=== PATIENT | female | born 1975 | race Caucasian/White ===

== ENCOUNTER 2016-08-29 13:29 | Inpatient (IN) | payer MEDICARE, MEDICAID ==
--- NOTE | 2016-08-29 14:13 | ED ---
Psych HPI - General Chief Complaint: Psychiatric Symptoms Stated Complaint: Mental Health Time Seen by Provider: 08/29/16 13:51 Source: patient Mode of arrival: ambulatory - History of Present Illness Initial Comments: This 41-year-old white female presents complaining of having some depression which started yesterday. She also is having some suicidal ideations yesterday and was planning on cutting her wrist. She states that she does not have a plan today. She also has been hearing voices and they are saying that they are going to get her. She also has been having some visual hallucinations of seeing blood. She does have a long-standing history of schizophrenia and bipolar disorder with previous similar incidents. She states that she has been taking all of her psychiatric medications regularly. She has been smoking marijuana but has a medical marijuana card. She also drinks approximately 1/2 pint every other day on average. She did drink some last night. She denies any other drug use. She denies any other complaints or modifying factors. She denies any medical complaints currently. - Related Data Home Medications Medication Instructions Recorded Confirmed ARIPiprazole [Abilify] 30 mg PO DAILY 08/29/16 08/29/16 FLUoxetine HCL [PROzac] 20 mg PO BID 08/29/16 08/29/16 HYDROcodone/APAP 7.5-325MG [[place] 1 tab PO Q8H PRN 08/29/16 08/29/16 7.5-325] Naproxen [Naprosyn] 500 mg PO BID PRN 08/29/16 08/29/16 Oxybutynin Chloride [Ditropan] 5 mg PO BID 08/29/16 08/29/16 QUEtiapine [SEROquel] 50 mg PO HS 08/29/16 08/29/16 Ranitidine HCl [Zantac] 150 mg PO BID PRN 08/29/16 08/29/16 Simvastatin [Zocor] 40 mg PO HS 08/29/16 08/29/16 tiZANidine [Zanaflex] 2 - 4 mg PO TID PRN 08/29/16 08/29/16 Allergies Allergy/AdvReac Type Severity Reaction Status Date / Time No Known Allergies Allergy Unverified 08/29/16 17:29 Review of Systems ROS Statement: Those systems with pertinent positive or pertinent negative responses have been documented in the HPI. ROS Other: All systems not noted in ROS Statement are negative. Past Medical History Past Medical History: No Reported History History of Any Multi-Drug Resistant Organisms: None Reported Past Surgical History: No Surgical Hx Reported Past Psychological History: Bipolar, Schizophrenia Smoking Status: Current every day smoker Past Alcohol Use History: Daily Past Drug Use History: Marijuana General Exam - General Exam Comments Initial Comments: GENERAL: The patient is well nourished and well hydrated. VITAL SIGNS: Heart rate, blood pressure, respiratory rate reviewed as recorded in nurse's notes. EYES: Pupils are round and reactive. Extraocular movements are intact. No conjunctival / lid redness or swelling. ENT: No external evidence of injury, swelling, or ecchymosis. Airway is patent. Throat is clear. NECK: Nontender. No swelling or evidence of injury. No subcutaneous emphysema. Trachea is midline. No thyroid mass. HEART: Regular rate and rhythm. Good peripheral pulses. LUNGS/CHEST: Breath sounds clear and equal bilaterally. No rales, rhonchi, or wheezes. No ecchymosis, subcutaneous emphysema, or tenderness. ABDOMEN: Abdomen soft without tenderness. No palpable masses or organomegaly. No peritoneal signs. No abdominal wall swelling or ecchymosis. EXTREMITIES: No extremity tenderness. Normal muscle tone and function. No thoracolumbar tenderness. NEUROLOGIC: Sensation is grossly intact. Cranial nerve exam reveals face is symmetrical, tongue is midline, speech is clear. SKIN: No abrasions or ecchymosis is noted. No induration or masses noted. PSYCHIATRIC: Alert and oriented. Appropriate behavior and judgment. Course Vital Signs 08/29/16 08/29/16 13:48 16:22 Temperature 97.1 F L 97.3 F L Pulse Rate 74 86 Respiratory 18 20 Rate Blood Pressure 102/62 107/65 O2 Sat by Pulse 95 96 Oximetry Medical Decision Making - Medical Decision Making The patient was seen and examined. Her breath alcohol test was negative. The psychiatric team has been consulted. Further care has been deferred to the department of psychiatry for definitive disposition. - Lab Data Lab Results 08/29/16 08/29/16 08/29/16 Range/Units 13:57 13:57 13:57 Urine Color Yellow Urine Appearance Cloudy H (Clear) Urine pH 6.0 (5.0-8.0) Ur Specific [place] 1.019 (1.001-1.035) Urine Protein Trace H (Negative) Urine Glucose (UA) Negative (Negative) Urine Ketones Negative (Negative) Urine Blood Moderate H (Negative) Urine Nitrite Negative (Negative) Urine Bilirubin Negative (Negative) Urine Urobilinogen <2.0 (<2.0) mg/dL Ur Leukocyte Esterase Trace H (Negative) Urine RBC >182 H (0-5) /hpf Urine WBC 6 H (0-5) /hpf Ur Squamous Epith Cells 3 (0-4) /hpf Urine Bacteria Rare H (None) /hpf Urine Mucus Rare H (None) /hpf Urine HCG, Qual Not Detected (Not Detectd) Urine Opiates Screen Detected H (NotDetected) Ur Oxycodone Screen Not Detected (NotDetected) Urine Methadone Screen Not Detected (NotDetected) Ur Propoxyphene Screen Not Detected (NotDetected) Ur Barbiturates Screen Not Detected (NotDetected) U Tricyclic Antidepress Detected H (NotDetected) Ur Phencyclidine Scrn Not Detected (NotDetected) Ur Amphetamines Screen Not Detected (NotDetected) U Methamphetamines Scrn Not Detected (NotDetected) U Benzodiazepines Scrn Not Detected (NotDetected) Urine Cocaine Screen Not Detected (NotDetected) U Marijuana (THC) Screen Detected H (NotDetected) Disposition Clinical Impression: Depression, Alcohol abuse, Marijuana abuse Disposition: ADMITTED IP TO THIS HOSP Condition: Fair Time of Disposition: 17:20 Decision Date: 08/29/16 Decision Time: 17:20
[2016-08-29] MEDS ORDERED: ACETAMINOPHEN TAB 325 MG TAB PO PRN (16:13)
[2016-08-29] MEDS ORDERED: MAG HYDROX/AL HYDROX/SIMETH 30 ML CUP PO PRN (16:13)
[2016-08-29] MEDS ORDERED: MAGNESIUM HYDROXIDE 2,400 MG/10 ML CUP PO PRN (16:13)
[2016-08-29] MEDS ORDERED: ZIPRASIDONE 20 MG VIAL IM PRN (16:15)
[2016-08-29] MEDS ORDERED: LORazepam 2 MG/ML SYRINGE IM PRN (16:16)
[2016-08-29 16:35] LABS: Appearance,Urine Cloudy (Clear); Bacteria,Urine Rare /hpf; Bilirubin,Urine Negative (Negative); Glucose,Urine (UA) Negative (Negative); Ketones,Urine Negative (Negative); Leukocyte Esterase,Urine Trace (Negative); Mucus,Urine Rare /hpf; Nitrite,Urine Negative (Negative); Particle Count 4929; Protein,Urine Trace (Negative); RBC,Urine >182 /hpf (0-5); Specific Gravity,Urine 1.019 (1.001-1.035); Squamous Epithelial Cell,Urine 3 /hpf (0-4); UA Billing (MACRO vs. MICRO) MICRO; Urobilinogen,Urine <2.0 mg/dL (<2.0); WBC,Urine 6 /hpf (0-5)
[2016-08-29] MEDS: HYDROcodone/APAP 5-325MG 1 EACH TAB PO PRN (17:01)
[2016-08-29] MEDS: NICOTINE 14MG/24HR PATCH TRANSDERM SCH (17:18)
[2016-08-29 17:25] VITALS: BMI 35.6
[2016-08-29] MEDS: ATORVASTATIN 20 MG TAB PO SCH (20:17)
[2016-08-29] MEDS: OXYBUTYNIN CHLORIDE 5 MG TAB PO SCH (20:17)
[2016-08-29] MEDS: QUEtiapine 50 MG TAB PO SCH (20:17)
[2016-08-29] MEDS: FLUoxetine HCL 20 MG CAP PO SCH (20:17)
[2016-08-29] MEDS: LORazepam 1 MG TAB PO PRN (21:51)
[2016-08-30] MEDS: OXYBUTYNIN CHLORIDE 5 MG TAB PO SCH ×2 (08:24→21:34)
[2016-08-30] MEDS: NICOTINE 14MG/24HR PATCH TRANSDERM SCH (08:24)
[2016-08-30] MEDS: ARIPiprazole 15 MG TAB PO SCH (08:25)
[2016-08-30] MEDS: FLUoxetine HCL 20 MG CAP PO SCH ×2 (08:25→21:34)
[2016-08-30] MEDS: HYDROcodone/APAP 5-325MG 1 EACH TAB PO PRN ×2 (08:28→21:35)
[2016-08-30] MEDS ORDERED: NICOTINE 14MG/24HR PATCH TRANSDERM SCH (09:00)
[2016-08-30 09:32] LABS: Basophils # (A) 0.1 k/uL (0-0.2); Basophils % (A) 1 %; CH 31.8; CHCM 32.7; Eosinophils # (A) 0.2 k/uL (0-0.7); Eosinophils % (A) 3 %; HCT 48.4 % (34.0-46.0); HDW 2.63; HGB 15.6 gm/dL (11.4-16.0); Luc # (Auto) 0.18; Luc % (Auto) 2; Lymphocytes # (A) 2.1 k/uL (1.0-4.8); Lymphocytes % (A) 25 %; MCH 31.5 pg (25.0-35.0); MCHC 32.2 g/dL (31.0-37.0); MCV 97.9 fL (80.0-100.0); Mean Platelet Volume 7.8; Monocytes # (A) 0.4 k/uL (0-1.0); Monocytes % (A) 5 %; Neutrophils # (A) 5.5 k/uL (1.3-7.7); Neutrophils % (A) 65 %; RBC 4.95 m/uL (3.80-5.40); RDW 13.8 % (11.5-15.5); WBC 8.5 k/uL (3.8-10.6); WBC (Perox) 8.46
[2016-08-30 09:51] LABS: ALT 30 U/L (9-52); AST 26 U/L (14-36); Alkaline Phosphatase 70 U/L (38-126); Anion Gap 11 mmol/L; Blood Urea Nitrogen 18 mg/dL (7-17); Calcium 9.9 mg/dL (8.4-10.2); Carbon Dioxide 25 mmol/L (22-30); Chloride 107 mmol/L (98-107); Glucose 105 mg/dL (74-99); Non-African American GFR(MDRD) >60 (>60 ml/min/1.73 sqM); Sodium 143 mmol/L (137-145); Total Bilirubin 0.8 mg/dL (0.2-1.3); Total Protein 7.5 g/dL (6.3-8.2)
[2016-08-30 10:35] LABS: Potassium 4.5 mmol/L (3.5-5.1)
[2016-08-30] MEDS: NAPROXEN 250 MG TAB PO PRN ×2 (14:24→22:46)
[2016-08-30] MEDS: tiZANidine 4 MG TAB PO PRN (14:24)
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
[2016-08-30] MEDS: QUEtiapine 50 MG TAB PO SCH (21:34)
[2016-08-30] MEDS: ATORVASTATIN 20 MG TAB PO SCH (21:34)
[2016-08-31] MEDS: ARIPiprazole 15 MG TAB PO SCH (08:49)
[2016-08-31] MEDS: NICOTINE 14MG/24HR PATCH TRANSDERM SCH (08:49)
[2016-08-31] MEDS: OXYBUTYNIN CHLORIDE 5 MG TAB PO SCH ×2 (08:50→21:11)
[2016-08-31] MEDS: FLUoxetine HCL 20 MG CAP PO SCH ×2 (08:50→21:11)
[2016-08-31] MEDS: HYDROcodone/APAP 5-325MG 1 EACH TAB PO PRN ×2 (08:51→18:54)
[2016-08-31] MEDS: NAPROXEN 250 MG TAB PO PRN (10:59)
--- NOTE | 2016-08-31 15:15 | P.CONS ---
History of Present Illness - Reason for Consult Consult date: 08/30/16 Medical management - History of Present Illness This is a 41-year-old female. Her primary care physician is Dr. Bullock and she follows with a psychiatrist as well. She has a past medical history of overactive bladder, COPD, hyperlipidemia, osteoarthritis, chronic back pain. patient states that she has seen blood everywhere. She denies any nightmares. She states she is hearing voices that tell her to run away. She states that seemed blood issue stopped yesterday. Patient came into [facility] emergency center. Urine drug screen was positive for opiates, tricyclic antidepressants and marijuana. TSH is 3.290. Patient has been admitted to the mental health unit. Review of Systems All systems: negative Constitutional: Denies chills, Denies fever Eyes: denies blurred vision, denies pain Ears, nose, mouth and throat: Denies headache, Denies sore throat Cardiovascular: Denies chest pain, Denies shortness of breath Respiratory: Denies cough Gastrointestinal: Denies abdominal pain, Denies diarrhea, Denies nausea, Denies vomiting Genitourinary: Denies dysuria, Denies hematuria Musculoskeletal: Denies myalgias Integumentary: Denies pruritus, Denies rash Neurological: Denies numbness, Denies weakness Psychiatric: Reports confusion, Reports hallucinations, Reports paranoia, Denies anxiety, Denies depression Endocrine: Denies fatigue, Denies weight change Past Medical History Past Medical History: No Reported History, GERD/Reflux, Hyperlipidemia Additional Past Medical History / Comment(s): overactive bladder, chronic back pain History of Any Multi-Drug Resistant Organisms: None Reported Past Surgical History: No Surgical Hx Reported Past Anesthesia/Blood Transfusion Reactions: No Reported Reaction Past Psychological History: Bipolar, Schizophrenia Smoking Status: Current every day smoker Past Alcohol Use History: Daily Additional Past Alcohol Use History / Comment(s): patient is a smoker of one pack per day since she was 10 years of age. She does have a medical marijuana card. She denies any street drug use. She states she drinks a pint of alcohol every 2-3 days since she was 10 years old. She lives at home with her boyfriend. She does not have CPAP or nebulizer at home. Past Drug Use History: Marijuana - Past Family History Father Additional Family Medical History / Comment(s): Father in his 50s from mesothelioma. Mother Additional Family Medical History / Comment(s): Mother is alive at age 64 with history of colon cancer and diabetes. Brother(s) Additional Family Medical History / Comment(s): Patient has 4 brothers and one has scoliosis. She does not have contact with the others. Sister(s) Additional Family Medical History / Comment(s): She has one sister with mental health issues. Daughter(s) Additional Family Medical History / Comment(s): Patient has 2 daughters and one has uterine cancer. She does not have any sons. Medications and Allergies Home Medications Medication Instructions Recorded Confirmed Type ARIPiprazole [Abilify] 30 mg PO DAILY 08/29/16 08/29/16 History FLUoxetine HCL [PROzac] 20 mg PO BID 08/29/16 08/29/16 History HYDROcodone/APAP 7.5-325MG [[place] 1 tab PO Q8H PRN 08/29/16 08/29/16 History 7.5-325] Naproxen [Naprosyn] 500 mg PO BID PRN 08/29/16 08/29/16 History Oxybutynin Chloride [Ditropan] 5 mg PO BID 08/29/16 08/29/16 History QUEtiapine [SEROquel] 50 mg PO HS 08/29/16 08/29/16 History Ranitidine HCl [Zantac] 150 mg PO BID PRN 08/29/16 08/29/16 History Simvastatin [Zocor] 40 mg PO HS 08/29/16 08/29/16 History tiZANidine [Zanaflex] 2 - 4 mg PO TID PRN 08/29/16 08/29/16 History Allergies Allergy/AdvReac Type Severity Reaction Status Date / Time No Known Allergies Allergy Unverified 08/29/16 17:29 Physical Exam Vitals: Vital Signs Temp Pulse Pulse Resp BP BP Pulse Ox 08/30/16 05:47 98.3 F 64 18 109/55 08/29/16 17:19 97.0 F L 59 L 20 105/66 08/29/16 16:22 97.3 F L 86 20 107/65 96 Intake and Output 08/29/16 08/30/16 08/30/16 22:59 06:59 14:59 Other: Weight 94.12 kg Gen: This is a 41-year-old female. She is cooperative. HEENT: Head is atraumatic, normocephalic. Pupils equal, round. Sclerae is anicteric. NECK: Supple. No JVD. No lymphadenopathy. No thyromegaly. LUNGS: Clear to auscultation. No wheezes or rhonchi. No intercostal retractions. HEART: Regular rate and rhythm. No murmur. ABDOMEN: Soft. Bowel sounds are present. No masses. No tenderness. EXTREMITIES: No pedal edema. No calf tenderness. NEUROLOGICAL: Patient is awake, alert and oriented x3. Cranial nerves 2 through 12 are grossly intact. Results CBC & Chem 7: 08/30/16 09:12 08/30/16 09:12 Labs: Abnormal Lab Results - Last 24 Hours (Table) 08/30/16 08/30/16 Range/Units 09:12 09:12 Hct 48.4 H (34.0-46.0) % BUN 18 H (7-17) mg/dL Glucose 105 H (74-99) mg/dL Assessment and Plan Plan: 1. Hallucinations in a patient with history of schizophrenia and bipolar. Patient admitted to the mental health unit. Continue current plan of care. 2. Overactive bladder. Continue Ditropan. 3. Hyperlipidemia. Continue Zocor. 4. Chronic back pain. Continue [place], Zanaflex and Naprosyn. 5. Gastroesophageal reflux disease. Continue Pepcid. 6. Tobacco use and dependence. Continue nicotine patch. Impression and plan of care have been directed as dictated by the signing physician. Sena Stanton nurse practitioner acting as scribe for signing physician. Time with Patient: Greater than 30
--- NOTE | 2016-08-31 15:28 | P.PN ---
Progress Note - Text SUBJECTIVE: I reviewed the medical record, interviewed Mr. Ge and discussed treatment and treatment plan during team meeting. Yesterday evening, during rounds, nursing found her sitting on her bed tying bath towels together. She told the nurse that the voices told her to "get rid of herself." The on- call psychiatrist gave new orders for one to one supervision. She requested that I discontinue the one-to-one because she felt that constant supervision was too intrusive. I attempted to engage her in discussion of the incident yesterday evening. She appeared unconcerned and talked about "them" ( her experience of command auditory hallucinations) instructing her to hang herself. She disavowed personal responsibility for her action and attributed her behavior to the influence of her psychotic symptoms. She argued that she is no longer experiencing "voices "; "they only mumbling now." She denied suicidal ideation, intent or plan. She also talked about arguments with her boyfriend. He is told her that she needs to "get into rehab" after she is discharged from the unit. She was evasive about the amount and frequency of her alcohol use. At one point alleging she drinks 1 pint of liquor every other day and at another time alleges she drinks a pint of liquor once or twice a week. She denied alcohol withdrawal symptoms. She is not perceive her alcohol use is a problem. OBJECTIVE: She presented as a casually groomed moderately obese 41-year-old female who was pleasant on approach. She made eye contact and attended to the interview. She has a tattoo on her right forearm but no prominent physical abnormalities. She had a blunted facial expression. She had slight psychomotor retardation but no abnormal movements. Her speech was spontaneous with decreased rate, rhythm and volume. She had articulation difficulty. Her affect was blunted. She denied suicidal ideation or wishes. She denied homicidal ideation. She denied depressive cognitions such as hopelessness, helplessness or worthlessness. She did not express ideas reference or paranoid ideation. Her thinking was concrete and associations were not fully coherent or logical. She described auditory hallucinations and command hallucinations. However, she did not appear to be responding during our interview. ASSESSMENT: She is severely mentally ill and mentally improve from admission. She is having command hallucinations regarding self-harm. She may have an alcohol use problem. PLAN: Continue inpatient hospitalization due to severity of psychosis and command hallucinations. Continue one to one supervision. Continue fluoxetine 20 mg twice a day, Abilify 30 mg daily and Seroquel 2 mg at bedtime. Continue when necessary dosing of Geodon and lorazepam. Obtain collateral information from boyfriend. Encourage participation in therapeutic groups and activities as tolerated. Evaluate clinical status response to treatment on a daily basis.
[2016-08-31] MEDS: QUEtiapine 50 MG TAB PO SCH (21:11)
[2016-08-31] MEDS: ATORVASTATIN 20 MG TAB PO SCH (21:11)
[2016-09-01] MEDS: NICOTINE 14MG/24HR PATCH TRANSDERM SCH (08:20)
[2016-09-01] MEDS: ARIPiprazole 15 MG TAB PO SCH (08:20)
[2016-09-01] MEDS: OXYBUTYNIN CHLORIDE 5 MG TAB PO SCH ×2 (08:20→21:28)
[2016-09-01] MEDS: FLUoxetine HCL 20 MG CAP PO SCH ×2 (08:21→21:27)
[2016-09-01] MEDS: HYDROcodone/APAP 5-325MG 1 EACH TAB PO PRN ×2 (08:22→21:28)
--- NOTE | 2016-09-01 11:54 | P.PN ---
Progress Note - Text SUBJECTIVE: I reviewed the medical record, interviewed Mr. Ge and discussed treatment and treatment plan during team meeting. She denied thoughts of or suicide. She described hearing a "mumbling" rather than a distinct "voice". She denied command hallucinations. We talked about the incident where nursing staff found her in her room tying the towels together. After she was reluctant to talk about her intentions. She replied "at [place] state told me not to talk about it because it would make it worse." She said that the "voices" told her to make noose and attach it to the door to hang herself. She denied that she wanted to commit suicide but felt compelled to act as commanded by the hallucination. She talked about her attempts to to speak with her boyfriend. He has not returned her telephone calls and she is interpreted his actions that he does not wish her to return to his home. She stated she talked to her sister and may return to her sister's home. I asked about marijuana use and she replied " I have a marijuana card" apparently indicating that the ownership of a medical marijuana card is a license to abuse marijuana. She continues to minimize her alcohol use. OBJECTIVE: She presented as a casually groomed moderately obese 41-year-old female who was pleasant on approach. She made eye contact and attended to the interview. She had a blunted facial expression. She had slight psychomotor retardation but no abnormal movements. Her speech was spontaneous with decreased rate, rhythm and volume. She had articulation difficulty. Her affect was blunted. She denied suicidal ideation or wishes. She denied homicidal ideation. She denied depressive cognitions such as hopelessness, helplessness or worthlessness. She did not express ideas reference or paranoid ideation. Her thinking was concrete and associations were not fully coherent or logical. She described auditory hallucinations and command hallucinations. However, she did not appear to be responding during our interview. She has limited insight. clinical social worker spoke with her boyfriend and obtain collateral information. He reported heavy use of alcohol and talked about her dishonesty. ASSESSMENT: She is severely mentally ill and minimally improve from admission. I do not feel that she is being honest or forthright regarding her alcohol and marijuana use. She has alcohol use disorder and a marijuana use disorder. I did not trust her self-report of psychotic symptoms. PLAN: Continue inpatient hospitalization due to severity of psychosis and command hallucinations. Continue one to one supervision. Continue fluoxetine 20 mg twice a day, Abilify 30 mg daily and Seroquel 2 mg at bedtime. Continue when necessary dosing of Geodon and lorazepam. Encourage participation in therapeutic groups and activities as tolerated. Evaluate clinical status response to treatment on a daily basis.
[2016-09-01] MEDS: NAPROXEN 250 MG TAB PO PRN (16:59)
[2016-09-01] MEDS: ATORVASTATIN 20 MG TAB PO SCH (21:27)
[2016-09-01] MEDS: QUEtiapine 50 MG TAB PO SCH (21:28)
[2016-09-01] MEDS: tiZANidine 4 MG TAB PO PRN (22:41)
[2016-09-02] MEDS: OXYBUTYNIN CHLORIDE 5 MG TAB PO SCH ×2 (09:02→21:14)
[2016-09-02] MEDS: FLUoxetine HCL 20 MG CAP PO SCH ×2 (09:02→21:14)
[2016-09-02] MEDS: ARIPiprazole 15 MG TAB PO SCH (09:02)
[2016-09-02] MEDS: NICOTINE 14MG/24HR PATCH TRANSDERM SCH (09:02)
[2016-09-02] MEDS: HYDROcodone/APAP 5-325MG 1 EACH TAB PO PRN ×2 (09:03→21:17)
[2016-09-02] MEDS: FAMOTIDINE 20 MG TAB PO PRN (09:03)
--- NOTE | 2016-09-02 11:24 | P.PN ---
Progress Note - Text SUBJECTIVE: I reviewed the medical record, interviewed Mr. Ge and discussed treatment and treatment plan during team meeting. She requested we discontinue one-to-one. "I am alright now. I don't hear voices and I'm not seeing blood. I am feeling pretty good." We discussed the reason for the one- to-one. I explained that we (the treatment team) are concerned because she did not talk about her suicidal ideation or intent and we only learned of her concerns when nursing staff serendipitously found her time together the bath towels. OBJECTIVE: She presented as a casually groomed moderately obese 41-year-old female who was pleasant on approach. She made eye contact and attended to the interview. She had a bright facial expression. She had no abnormality of psychomotor activity but no abnormal movements. Her speech was spontaneous with normal rate, rhythm and volume. She had articulation difficulty. Her affect was bright. She denied suicidal ideation or wishes. She denied homicidal ideation. She denied depressive cognitions such as hopelessness, helplessness or worthlessness. She did not express ideas reference or paranoid ideation. Her thinking was concrete and associations were not fully coherent or logical. She denied auditory hallucinations and command hallucinations. However, she did not appear to be responding during our interview. She has limited insight. Treatment staff reported that she has been bright and pleasant in therapeutic groups. We discussed her request to be taken off one-to-one and agreed to a trial off one-to-one but continue suicide precautions with 15 minute checks. ASSESSMENT: She is moderately mentally ill and much improve from admission. She has alcohol use disorder and a marijuana use disorder. PLAN: Continue inpatient hospitalization due to severity of psychosis and command hallucinations. Discontinue one-to-one supervision and continue suicide precautions with 15 minute checks. Continue fluoxetine 20 mg twice a day, Abilify 30 mg daily and Seroquel 2 mg at bedtime. Continue when necessary dosing of Geodon and lorazepam. Social work to coordinate a family meeting with her sister and/or her boyfriend. Encourage participation in therapeutic groups and activities as tolerated. Evaluate clinical status response to treatment on a daily basis.
[2016-09-02] MEDS: LORazepam 1 MG TAB PO PRN (16:50)
[2016-09-02] MEDS: ATORVASTATIN 20 MG TAB PO SCH (21:13)
[2016-09-02] MEDS: QUEtiapine 50 MG TAB PO SCH (21:14)
[2016-09-02] MEDS: tiZANidine 4 MG TAB PO PRN (23:07)
[2016-09-02] MEDS: NAPROXEN 250 MG TAB PO PRN (23:07)
[2016-09-03] MEDS: ARIPiprazole 15 MG TAB PO SCH (08:00)
[2016-09-03] MEDS: NICOTINE 14MG/24HR PATCH TRANSDERM SCH (08:00)
[2016-09-03] MEDS: OXYBUTYNIN CHLORIDE 5 MG TAB PO SCH ×2 (08:01→20:59)
[2016-09-03] MEDS: FLUoxetine HCL 20 MG CAP PO SCH ×2 (08:01→20:58)
[2016-09-03] MEDS: HYDROcodone/APAP 5-325MG 1 EACH TAB PO PRN ×2 (08:03→17:24)
[2016-09-03] MEDS: FAMOTIDINE 20 MG TAB PO PRN (09:48)
[2016-09-03] MEDS: LORazepam 1 MG TAB PO PRN (09:48)
[2016-09-03] MEDS: NAPROXEN 250 MG TAB PO PRN ×2 (09:49→22:26)
--- NOTE | 2016-09-03 10:22 | P.PN ---
Progress Note - Text Interval history: Patient seen in cross coverage today for Dr. Chadwick. She denies any psychotic features ,denies any sleeping or appetite problems ,she reports having anticipatory anxiety related to her family meeting at 1 PM .she talked about the conflict between her boyfriend and her sister but stated "IF I HAVE TO PICK SIDE ,IT WILL BE MY SISTER ,I LIVED WITH HER MOST OF MY LIFE "Patient denies any side-effects from medications PER NURSING STAFF:patient had difficulty falling asleep ,slept 5 hours , participating in most of groups ,had PRN Ativan and [place] this morning VITALS: Temp:97.8,Pulse:60,Resp'18,BP:104/57 Mental status exam: She is alert and cooperative with the interview. Her speech is fluent and non pressured , she denies any thoughts of harm to self or others. She does not verbalize any hallucinations ,no idea of reference , denies any manic symptoms ,insight is improving .Stated mood "ANXIOUS",affect is constricted ,alert and oriented to place ,person and time Plan: We'll continue to cover this patient for Dr. Chadwick through the weekend. We'll continue to monitor for any psychiatric symptoms and monitor for any side-effect from medication.
[2016-09-03] MEDS: QUEtiapine 50 MG TAB PO SCH (20:58)
[2016-09-03] MEDS: ATORVASTATIN 20 MG TAB PO SCH (20:58)
[2016-09-03] MEDS: tiZANidine 4 MG TAB PO PRN (22:26)
[2016-09-04] MEDS: HYDROcodone/APAP 5-325MG 1 EACH TAB PO PRN (09:18)
[2016-09-04] MEDS: FLUoxetine HCL 20 MG CAP PO SCH ×2 (09:18→21:14)
[2016-09-04] MEDS: OXYBUTYNIN CHLORIDE 5 MG TAB PO SCH ×2 (09:18→21:14)
[2016-09-04] MEDS: NICOTINE 14MG/24HR PATCH TRANSDERM SCH (09:18)
[2016-09-04] MEDS: FAMOTIDINE 20 MG TAB PO PRN (09:18)
[2016-09-04] MEDS: ARIPiprazole 15 MG TAB PO SCH (09:18)
[2016-09-04] MEDS: tiZANidine 4 MG TAB PO PRN (09:42)
--- NOTE | 2016-09-04 15:07 | P.PN ---
Progress Note - Text Interval history: Patient seen in cross coverage today for Dr. Chadwick. She denies any psychotic features ,denies any sleeping or appetite problems ,she reports that family meeting was productive ,she will stay with her sister "FOR SUPPORT"but she will visit her boyfriend PER NURSING STAFF: She is ,participating in most of groups ,had PRN [place] this morning , socializing with peers Mental status exam: She is alert and cooperative with the interview. Her speech is fluent and non pressured , she denies any thoughts of harm to self or others. She does not verbalize any hallucinations ,no idea of reference , denies any manic symptoms ,insight is improving .Stated mood "BETTER"",affect is constricted ,alert and oriented to place ,person and time Plan: We'll continue to monitor for any psychiatric symptoms and monitor for any side-effect from medication.
[2016-09-04] MEDS: QUEtiapine 50 MG TAB PO SCH (21:14)
[2016-09-04] MEDS: ATORVASTATIN 20 MG TAB PO SCH (21:14)
[2016-09-05 03:25] VITALS: BP 102/63; PULSE 74; RESP 18; TEMP 98.2
[2016-09-05] MEDS: OXYBUTYNIN CHLORIDE 5 MG TAB PO SCH (08:44)
[2016-09-05] MEDS: ARIPiprazole 15 MG TAB PO SCH (08:44)
[2016-09-05] MEDS: NICOTINE 14MG/24HR PATCH TRANSDERM SCH (08:45)
[2016-09-05] MEDS: HYDROcodone/APAP 5-325MG 1 EACH TAB PO PRN (08:45)
[2016-09-05] MEDS: FLUoxetine HCL 20 MG CAP PO SCH (08:45)
[2016-09-05] MEDS: NAPROXEN 250 MG TAB PO PRN (10:37)
[2016-09-05] MEDS: tiZANidine 4 MG TAB PO PRN (10:37)
--- NOTE | 2016-09-05 12:23 | P.DS ---
Providers Date of admission: 08/29/16 16:09 Attending physician: Carlos Alberto Chadwick MD Consults: 08/29/16 16:13 Consult Physician Routine Consulting Provider: Christina Wong Consult Reason/Comments: H and P Do you want consulting provider notified?: Yes Primary care physician: Stated None - Discharge Diagnosis(es) (1) Schizophrenia Current Visit: Yes Status: Chronic Priority: Medium (2) Suicidal ideation Current Visit: Yes Status: Resolved Priority: High (3) Marijuana abuse Current Visit: Yes Status: Chronic Priority: Medium Hospital Course: Ms. Ge is a 41-year-old female who has a history of a schizophrenia. She presented to psychiatric unit voluntarily with complaints of worsening auditory hallucinations and the onset of visual hallucinations. Over the 4 days prior to admission she experienced increasing intensity of auditory hallucinations. She was willing to talk about one experience where a voice was telling her to "leave". She stated that in the past she had left the state in response to this hallucination. Other "voices" where were critical and condemning. She admitted to other hallucinatory experiences but was unwilling to talk them and appeared to be embarrassed. She stated that when she has "unstable" she begins to have visual hallucinations. Prior to admission she stated that she was "seeing blood". She felt increasingly frightened and scared She called her counselor at the [facility]. Her therapist recommended that she [facility]. She described feeling depressed but denied that she had thoughts of suicide. However, she described experiencing suicidal thoughts since she's been on the unit. She talked about walking past the pictures on the wall and thought about breaking the plastic to cut herself. She reported intermittent feelings of anxiety but denied generalized sense of anxiety or symptoms suggestive of panic attack. She denied obsessions or compulsions. She denied symptoms suggestive of devorah or hypomania. She smokes marijuana and has a medical marijuana card. She denied the use of other drugs to get high, help her sleep or change her mood. She engages in nonlethal self-harm behaviors. She talked about beating herself with a belt on her back and buttocks. She engages in this behavior several times per week. These experiences are grounding and she describes them as "bring me back to reality." She denied that she has cause cuts or bruises on her back or buttocks from the self-flagellation. She also burned herself with cigarettes periodically; the last was about 1 month prior to admission. She was first admitted to a psychiatric facility when she was 10 years old. She was admitted to [facility] in [facility] with auditory hallucinations and a suicide attempt where she cut her arm. She was inpatient in [facility] for 3 years. She has has had between 10 to 12 psychiatric admissions; last was a psychiatric facility in [facility] "about 2 years ago". She is engaged with [facility] . Her psychiatrist at the [facility] center is Sena Lama and her therapist's first name is Amanda. Her home medications include Seroquel 50 mg at bedtime, fluoxetine 20 mg twice a day and Abilify 30 mg daily. We admitted her to the psychiatric unit under care of this manual writer. We provided a biopsychosocial assessment. The financial management consultant nurse practitioner completed the initial physical exam and medical history. The nurse practitioners diagnoses included overactive bladder, hyperlipidemia, chronic back pain, gastroesophageal esophageal reflux disease and tobacco use disorder. We continued her outpatient medications including Abilify 30 mg daily, Lipitor 20 mg at bedtime, Pepcid 20 mg by mouth twice a day when necessary, Prozac 20 mg by mouth twice a day, Naprosyn 500 mg by mouth twice a day when necessary for pain, Ditropan 5 mg twice a day, Seroquel 50 mg at bedtime and Zanaflex 4 mg by mouth 3 times a day when necessary for muscle spasms. The day after admission nursing staff found her in her room making a noose out of bath towels. She alleged that "voices" were telling her to make a noose and hang herself. We placed her on one-to-one supervision due to the imminent suicide risk. She remained on one-to-one until she reported absence of auditory hallucinations, command hallucinations and suicidal thoughts. She was living with her boyfriend prior to admission but due to her alcohol use and suicidal behavior he did not want her to return to his home. We suspect that her presentation and suicidal ideation was related to conflict with her boyfriend. She participated in therapeutic groups and activities. She was compliant with prescribed medications. Social work arranged a family meeting with her sister. His sister agreed Ms. Ge may return to his sister's home. At the time of discharge she denied suicidal ideation, plan or intent. She does not feel hopeless, helpless or worthless. She denied auditory hallucinations. She will receive continued mental health treatment through [facility]. Patient Condition at Discharge: Stable Plan - Discharge Summary New Discharge Prescriptions: FLUoxetine HCL [PROzac] 20 mg PO BID 30 Days Nicotine 14Mg/24Hr Patch [Habitrol] 1 patch TRANSDERM DAILY 14 Days QUEtiapine [SEROquel] 50 mg PO HS 30 Days Discharge Medication List HYDROcodone/APAP 7.5-325MG [[place] 7.5-325] 1 tab PO Q8H PRN 08/29/16 [History] Naproxen [Naprosyn] 500 mg PO BID PRN 08/29/16 [History] Oxybutynin Chloride [Ditropan] 5 mg PO BID 08/29/16 [History] Ranitidine HCl [Zantac] 150 mg PO BID PRN 08/29/16 [History] Simvastatin [Zocor] 40 mg PO HS 08/29/16 [History] tiZANidine [Zanaflex] 2 - 4 mg PO TID PRN 08/29/16 [History] ARIPiprazole [Abilify] 30 mg PO DAILY 30 Days 09/05/16 [Rx] FLUoxetine HCL [PROzac] 20 mg PO BID 30 Days 09/05/16 [Rx] Nicotine 14Mg/24Hr Patch [Habitrol] 1 patch TRANSDERM DAILY 14 Days 09/05/16 [Rx ] QUEtiapine [SEROquel] 50 mg PO HS 30 Days 09/05/16 [Rx] Follow up Appointment(s)/Referral(s): [facility] [Outside] - 09/07/16 2:00 pm (09/07/2016 @ 14:00 Amanda Padilla 09/19/2016 @ 12:30 [facility] at [facility]) None,Stated [Primary Care Provider] - 1 Week Patient Instructions/Handouts: How to Stop Smoking (DC), Depression (DC), Suicide Prevention for Adults (DC) Activity/Diet/Wound Care/Special Instructions: Activity and diet as tolerated. Avoid the use the street drugs and alcohol. Take all medications as prescribed. When you are in need of refills on your medications please contact your medical provider and/or outpatient psychiatrist to have this done. Please go to scheduled outpatient appointment for aftercare. If symptoms return or become worse call the crisis line at and/ or go to the nearest emergency room for an evaluation. Discharge Disposition: HOME SELF-CARE
[2016-09-05] MEDS: LORazepam 1 MG TAB PO PRN (12:53)
== END 2016-09-05 14:12 | disposition home or self-care (01) | DRG 885 ==
LOC: EC 13:29 → 3MHU 16:09
PROVIDERS: ADMIT Psychiatry & Neurology Psychiatry; ATTEND Psychiatry & Neurology Psychiatry
DX: F20.0 Paranoid schizophrenia (principal); R45.851 Suicidal ideations; J44.9 Chronic obstructive pulmonary disease, unspecified; E78.5 Hyperlipidemia, unspecified; E78.00 Pure hypercholesterolemia, unspecified; F10.10 Alcohol abuse, uncomplicated; F12.10 Cannabis abuse, uncomplicated; G89.29 Other chronic pain; K21.9 Gastro-esophageal reflux disease without esophagitis; N32.81 Overactive bladder; Z79.899 Other long term (current) drug therapy; Z81.8 Family history of other mental and behavioral disorders; Z72.0 Tobacco use
CPT/HCPCS: 80053; 80306; 81001; 81025; 82075; 84443; 85025; 93005; 99285

== ENCOUNTER 2018-08-13 09:25 | Inpatient (IN) | payer MEDICARE, MEDICAID ==
--- NOTE | 2018-08-13 09:58 | ED ---
General Adult HPI - General Chief complaint: Psychiatric Symptoms Stated complaint: Sucidal Time Seen by Provider: 08/13/18 09:30 Source: patient, RN notes reviewed Mode of arrival: ambulatory Limitations: no limitations - History of Present Illness Initial comments: This is a 43-year-old female who presents emergency Department complaining of being suicidal for the last 3 days. Patient states she has a history of bipolar and schizophrenia. Patient states his been medicines but she doesn't take them. Patient is not sure why she is not taking. Patient states lately hearing voices that are telling her to kill herself. Patient states she has made no attempt to kill herself but she's getting worried that she will. Patient denies any illegal drug use. Patient denies any alcohol use. Patient denies any physical complaints today. Patient denies headache patient denies numbness weakness. Patient denies chest pain difficulty breathing shortest breath. Patient denies any recent fever chills or cough. Patient denies abdominal pain patient denies nausea vomiting diarrhea. Patient denies any recent injury or trauma. - Related Data Home Medications Medication Instructions Recorded Confirmed HYDROcodone/APAP 7.5-325MG [[place] 1 tab PO Q8H PRN 08/29/16 08/13/18 7.5-325] Naproxen [Naprosyn] 500 mg PO BID PRN 08/29/16 08/13/18 Oxybutynin Chloride [Ditropan] 5 mg PO BID 08/29/16 08/13/18 Ranitidine HCl [Zantac] 150 mg PO BID PRN 08/29/16 08/13/18 Simvastatin [Zocor] 40 mg PO HS 08/29/16 08/13/18 tiZANidine [Zanaflex] 2 - 4 mg PO TID PRN 08/29/16 08/13/18 Previous Rx's Medication Instructions Recorded ARIPiprazole [Abilify] 30 mg PO DAILY 30 Days 09/05/16 FLUoxetine HCL [PROzac] 20 mg PO BID 30 Days cap 09/05/16 QUEtiapine [SEROquel] 50 mg PO HS 30 Days tab 09/05/16 Allergies Allergy/AdvReac Type Severity Reaction Status Date / Time No Known Allergies Allergy Verified 08/13/18 10:07 Review of Systems ROS Statement: Those systems with pertinent positive or pertinent negative responses have been documented in the HPI. ROS Other: All systems not noted in ROS Statement are negative. Past Medical History Past Medical History: GERD/Reflux, Hyperlipidemia Additional Past Medical History / Comment(s): overactive bladder, chronic back pain History of Any Multi-Drug Resistant Organisms: None Reported Past Surgical History: No Surgical Hx Reported Past Anesthesia/Blood Transfusion Reactions: No Reported Reaction Past Psychological History: Bipolar, Schizophrenia Smoking Status: Current every day smoker Past Alcohol Use History: None Reported, Daily Past Drug Use History: Cocaine, Marijuana - Past Family History Father Additional Family Medical History / Comment(s): Father in his 50s from mesothelioma. Mother Additional Family Medical History / Comment(s): Mother is alive at age 64 with history of colon cancer and diabetes. Brother(s) Additional Family Medical History / Comment(s): Patient has 4 brothers and one has scoliosis. She does not have contact with the others. Sister(s) Additional Family Medical History / Comment(s): She has one sister with mental health issues. Daughter(s) Additional Family Medical History / Comment(s): Patient has 2 daughters and one has uterine cancer. She does not have any sons. General Exam - General Exam Comments Initial Comments: GENERAL: Patient is well-developed and well-nourished. Patient is nontoxic and well- hydrated and is in mild distress. ENT: Neck is soft and supple. No significant lymphadenopathy is noted. Oropharynx is clear. Moist mucous membranes. Neck has full range of motion without eliciting any pain. EYES: The sclera were anicteric and conjunctiva were pink and moist. Extraocular movements were intact and pupils were equal round and reactive to light. Eyelids were unremarkable. PULMONARY: Unlabored respirations. Good breath sounds bilaterally. No audible rales rhonchi or wheezing was noted. CARDIOVASCULAR: There is a regular rate and rhythm without any murmurs gallops or rubs. ABDOMEN: Soft and nontender with normal bowel sounds. No palpable organomegaly was noted. There is no palpable pulsatile mass. SKIN: Skin is clear with no lesions or rashes and otherwise unremarkable. NEUROLOGIC: Patient is alert and oriented x3. Cranial nerves II through XII are grossly intact. Motor and sensory are also intact. Normal speech, volume and content. Symmetrical smile. MUSCULOSKELETAL: Normal extremities with adequate strength and full range of motion. No lower extremity swelling or edema. No calf tenderness. LYMPHATICS: No significant lymphadenopathy is noted PSYCHIATRIC: Patient states she suicidal. Patient states his hearing voices that are telling her to harm her self Limitations: no limitations Course Vital Signs 08/13/18 09:30 Temperature 98.4 F Pulse Rate 76 Respiratory 18 Rate Blood Pressure 106/71 O2 Sat by Pulse 92 L Oximetry Medical Decision Making - Medical Decision Making EPS evaluated the patient and determined the patient needed to be admitted. - Lab Data Lab Results 08/13/18 Range/Units 10:30 Urine Opiates Screen Not Detected (NotDetected) Ur Oxycodone Screen Not Detected (NotDetected) Urine Methadone Screen Not Detected (NotDetected) Ur Propoxyphene Screen Not Detected (NotDetected) Ur Barbiturates Screen Not Detected (NotDetected) U Tricyclic Antidepress Not Detected (NotDetected) Ur Phencyclidine Scrn Not Detected (NotDetected) Ur Amphetamines Screen Not Detected (NotDetected) U Methamphetamines Scrn Not Detected (NotDetected) U Benzodiazepines Scrn Not Detected (NotDetected) Urine Cocaine Screen Detected H (NotDetected) U Marijuana (THC) Screen Detected H (NotDetected) Disposition Clinical Impression: Suicidal ideation, Chronic schizophrenia, Bipolar disorder, Medical non- compliance Disposition: ADMITTED IP TO THIS HOSP Referrals: Jose Bullock DO [Primary Care Provider] - 1-2 days Time of Disposition: 13:49
[2018-08-13 10:56] LABS: Amphetamine Screen,Urine Not Detected (NotDetected); Barbiturate Screen,Urine Not Detected (NotDetected); Benzodiazepines Screen,Urine Not Detected (NotDetected); Cocaine Screen,Urine Detected (NotDetected); Methadone Screen, Urine Not Detected (NotDetected); Opiate Screen,Urine Not Detected (NotDetected); Oxycodone Screen, Urine Not Detected (NotDetected); Phencyclidine Screen,Urine Not Detected (NotDetected); Tricyclic Antidepressant,Urine Not Detected (NotDetected); Urn Cannabinoid Scrn Detected (NotDetected)
[2018-08-13] MEDS ORDERED: MAG HYDROX/AL HYDROX/SIMETH 30 ML CUP PO PRN (14:12)
[2018-08-13] MEDS ORDERED: MAGNESIUM HYDROXIDE 2,400 MG/10 ML CUP PO PRN (14:12)
[2018-08-13] MEDS ORDERED: ZIPRASIDONE 20 MG VIAL IM PRN (14:12)
[2018-08-13 15:04] VITALS: BMI 34.3
[2018-08-13] MEDS: NICOTINE 14MG/24HR PATCH TRANSDERM SCH (15:34)
--- NOTE | 2018-08-13 17:01 | P.HPMEDMHU ---
History of Present Illness H&P Date: 08/13/18 Chief Complaint: hallucinations Patient is a 43-year-old female with a past medical history of dyslipidemia, GERD, and chronic low back pain who presented to the ER due to hallucinations. She was subsequently admitted to the mental health unit and we' re asked evaluate her medical H and P. Patient seen and examined at bedside. She states that recently she's been having some hallucinations and has been thinking of harming herself. She denies actively harming herself or taking any overdose of medications. She follows with Dr. Bullock as her PCP and sees him once a month due to her chronic low back pain. She does struggle some insomnia. She denies any recent cough, cold, fever, flu, nausea, or vomiting. She states she's otherwise been in her normal state of health. She is on disability and rents a room. She does smoke 1.5 packs per day and drinks 1 pint approximately twice weekly and her last drink was one week ago. Review of Systems Pertinent positives and negatives as discussed in HPI, a complete review of systems was performed and all other systems are negative. Past Medical History Past Medical History: GERD/Reflux, Hyperlipidemia Additional Past Medical History / Comment(s): overactive bladder, chronic back pain History of Any Multi-Drug Resistant Organisms: None Reported Past Surgical History: Cholecystectomy Past Anesthesia/Blood Transfusion Reactions: No Reported Reaction Past Psychological History: Bipolar, Schizophrenia Smoking Status: Current every day smoker Past Alcohol Use History: None Reported, Daily Additional Past Alcohol Use History / Comment(s): patient is a smoker of one pack per day since she was 10 years of age. She does have a medical marijuana card. She denies any street drug use. She states she drinks a pint of alcohol every 2-3 days since she was 10 years old. She lives alone and is on disability. Past Drug Use History: Cocaine, Marijuana - Past Family History Father Additional Family Medical History / Comment(s): Father in his 50s from mesothelioma. Mother Additional Family Medical History / Comment(s): Mother is alive at age 64 with history of colon cancer and diabetes. Brother(s) Additional Family Medical History / Comment(s): Patient has 4 brothers and one has scoliosis. She does not have contact with the others. Sister(s) Additional Family Medical History / Comment(s): She has one sister with mental health issues. Daughter(s) Additional Family Medical History / Comment(s): Patient has 2 daughters and one has uterine cancer. She does not have any sons. Medications and Allergies Home Medications Medication Instructions Recorded Confirmed Type HYDROcodone/APAP 7.5-325MG [[place] 1 tab PO Q8H PRN 08/29/16 08/13/18 History 7.5-325] Naproxen [Naprosyn] 500 mg PO BID PRN 08/29/16 08/13/18 History Oxybutynin Chloride [Ditropan] 5 mg PO BID 08/29/16 08/13/18 History Ranitidine HCl [Zantac] 150 mg PO BID PRN 08/29/16 08/13/18 History Simvastatin [Zocor] 40 mg PO HS 08/29/16 08/13/18 History tiZANidine [Zanaflex] 2 - 4 mg PO TID PRN 08/29/16 08/13/18 History ARIPiprazole [Abilify] 30 mg PO DAILY 30 Days 09/05/16 08/13/18 Rx FLUoxetine HCL [PROzac] 20 mg PO BID 30 Days cap 09/05/16 08/13/18 Rx QUEtiapine [SEROquel] 50 mg PO HS 30 Days tab 09/05/16 08/13/18 Rx Allergies Allergy/AdvReac Type Severity Reaction Status Date / Time No Known Allergies Allergy Verified 08/13/18 15:09 Physical Exam Osteopathic Statement: *. No significant issues noted on an osteopathic structural exam other than those noted in the History and Physical/Consult. Vitals: Vital Signs Temp Pulse Pulse Resp BP BP Pulse Ox 08/13/18 14:49 97.6 F 68 18 125/70 96 08/13/18 14:04 99.2 F 64 18 113/70 92 L 08/13/18 09:30 98.4 F 76 18 106/71 92 L Intake and Output 08/13/18 08/13/18 08/13/18 06:59 14:59 22:59 Other: Weight 90.718 kg General: non toxic, no distress, appears at stated age, obese Derm: no unusual rashes/lesions no unusual ecchymoses, warm, dry Head: atraumatic, normocephalic, symmetric Eyes: EOMI, no lid lag, anicteric sclera, pupils equal round reactive to light ENT: Nose and ears atraumatic, no thrush, no pharyngeal erythema Neck: No thyromegaly, no cervical lymphadenopathy, trachea midline, supple Mouth: no lip lesion, mucus membranes moist Cardiovascular: S1S2 reg, no murmur, positive posterior tibial pulse bilateral, no edema, capillary refill less than 2 seconds Lungs: CTA bilateral, no rhonchi, no rales , no accessory muscle use Abdominal: soft, nontender to palpation, no guarding, no appreciable organomegaly, normal bowel sounds Ext: no gross muscle atrophy, muscle strength 5 out of 5 in all 4 extremities grossly, no contractures, Neuro: CN II-XI grossly intact, light touch intact all 4 extremities, finger to nose within normal limits, Psych: Alert, oriented, flat affect Cranial Nerve Examination - Cranial Nerves Cranial Nerve II- Optic: Intact Cranial Nerve III- Oculomotor: Intact Cranial Nerve IV- Trochlear: Intact Cranial Nerve V- Trigeminal: Intact Cranial Nerve - Abducens: Intact Cranial Nerve VII- Facial: Intact Cranial Nerve VIII- Auditory: Intact Cranial Nerve IX- Glossopharyngeal: Intact Cranial Nerve X- Vagus: Intact Cranial Nerve XI- Accessory: Intact Cranial Nerve XII- Hypoglossal: Intact Results Labs: Abnormal Lab Results - Last 24 Hours (Table) 08/13/18 Range/Units 10:30 Urine Cocaine Screen Detected H (NotDetected) U Marijuana (THC) Screen Detected H (NotDetected) Thrombosis Risk Factor Assmnt - DVT/VTE Prophylaxis DVT/VTE Prophylaxis: Low risk, early ambulation encouraged - Choose All That Apply Any of the Below Risk Factors Present?: No Other Risk Factors: No Thrombosis Risk Factor Assessment Level: Very Low Risk Assessment and Plan Assessment: HLD - lipitor - follow with PCP GERD -continue pepcid Chronic low back pain - continue zanaflex, naprosyn Tobacco abuse - cessation - nicotine replacement Hallucinations and suicidal ideation - your psych management Thank you for allowing us to participate in the care of this patient. We will follow peripherally. Do not hesitate to contact us with questions. Someone can be reached from the [facility] [place] hospitalist group at all hours of the day at [phone].
[2018-08-13] MEDS: OXYBUTYNIN CHLORIDE 5 MG TAB PO SCH (20:43)
[2018-08-13] MEDS: QUEtiapine 50 MG TAB PO SCH (20:43)
[2018-08-13] MEDS: FLUoxetine HCL 20 MG CAP PO SCH (20:43)
[2018-08-13] MEDS: ATORVASTATIN 20 MG TAB PO SCH (20:43)
[2018-08-13] MEDS: ACETAMINOPHEN TAB 325 MG TAB PO PRN (20:45)
[2018-08-14] MEDS: ACETAMINOPHEN TAB 325 MG TAB PO PRN ×3 (05:55→20:08)
[2018-08-14] MEDS: LORazepam 1 MG TAB PO PRN (05:55)
[2018-08-14] MEDS: FAMOTIDINE 20 MG TAB PO PRN (08:09)
[2018-08-14] MEDS: NICOTINE 14MG/24HR PATCH TRANSDERM SCH (08:09)
[2018-08-14] MEDS: FLUoxetine HCL 20 MG CAP PO SCH ×2 (08:09→20:06)
[2018-08-14] MEDS: OXYBUTYNIN CHLORIDE 5 MG TAB PO SCH ×2 (08:09→20:06)
[2018-08-14 09:00] LABS: Basophils # (A) 0.1 k/uL (0-0.2); Basophils % (A) 1 %; Eosinophils # (A) 0.2 k/uL (0-0.7); Eosinophils % (A) 2 %; HGB 16.1 gm/dL (11.4-16.0); Lymphocytes # (A) 2.3 k/uL (1.0-4.8); Lymphocytes % (A) 24 %; MCH 31.7 pg (25.0-35.0); MCHC 31.5 g/dL (31.0-37.0); MCV 100.6 fL (80.0-100.0); Macrocytosis Slight; Mean Platelet Volume 6.4; Monocytes # (A) 0.5 k/uL (0-1.0); Monocytes % (A) 5 %; Neutrophils # (A) 6.6 k/uL (1.3-7.7); Neutrophils % (A) 68 %; Platelet Count 254 k/uL (150-450); RBC 5.07 m/uL (3.80-5.40); RDW 13.7 % (11.5-15.5); WBC 9.7 k/uL (3.8-10.6)
[2018-08-14] MEDS ORDERED: ARIPiprazole 10 MG TAB PO SCH (09:00)
[2018-08-14 09:01] LABS: Calcium 9.9 mg/dL (8.4-10.2); Potassium 4.2 mmol/L (3.5-5.1); Total Bilirubin 0.6 mg/dL (0.2-1.3)
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
[2018-08-14 17:02] LABS: Hemoglobin A1C 5.2 % (4.0-6.0)
[2018-08-14] MEDS: ATORVASTATIN 20 MG TAB PO SCH (20:06)
[2018-08-14] MEDS: QUEtiapine 50 MG TAB PO SCH (20:06)
[2018-08-14] MEDS: PALIPERIDONE 6 MG TAB.ER.24 PO SCH (20:06)
[2018-08-15] MEDS: FLUoxetine HCL 20 MG CAP PO SCH ×2 (08:36→20:57)
[2018-08-15] MEDS: NICOTINE 14MG/24HR PATCH TRANSDERM SCH (08:36)
[2018-08-15] MEDS: OXYBUTYNIN CHLORIDE 5 MG TAB PO SCH ×2 (08:36→20:57)
[2018-08-15] MEDS: ACETAMINOPHEN TAB 325 MG TAB PO PRN ×3 (08:37→20:58)
--- NOTE | 2018-08-15 14:47 | P.PN ---
Progress Note - Text Interval history: The patient is found in group she follows me to an interview room. She indicates her mood is better. She is experiencing an auditory hallucination making derogatory statements. No command auditory hallucinations. She was able to sleep last night appetite stable. She states she attended groups in the afternoon but not in the morning. Mental status exam: The patient is alert she is pleasant cooperative. She readily participates in the conversation. She indicates her mood is better. She is reporting no acute suicidal or homicidal ideation intent or plan and she feels safe here. She is experiencing an auditory hallucination as noted. Fortunately is not commanding at this time. She demonstrates no verbal or physical aggressiveness she demonstrates no involuntary repetitive movements. She demonstrates no tangential thinking loose associations or flight of ideas. There is no evidence of hypomania or devorah at this time. Insight and judgment improving. Plan: The patient will continue on the Invega as written. We will discontinue the Seroquel. We will monitor her for safety she is encouraged to fully participate in the milieu. Vital signs reviewed. If she continues to quickly improve we will consider discharge Monday.
[2018-08-15] MEDS: ATORVASTATIN 20 MG TAB PO SCH (20:57)
[2018-08-15] MEDS: PALIPERIDONE 6 MG TAB.ER.24 PO SCH (20:58)
[2018-08-15] MEDS: TERBINAFINE 1% CREAM 15 GM TUBE TOPICAL SCH (21:10)
[2018-08-16] MEDS: LORazepam 1 MG TAB PO PRN (00:51)
[2018-08-16] MEDS: NAPROXEN 250 MG TAB PO PRN ×2 (00:54→21:08)
[2018-08-16 01:39] VITALS: RESP 18
[2018-08-16] MEDS: FLUoxetine HCL 20 MG CAP PO SCH ×2 (08:56→21:04)
[2018-08-16] MEDS: NICOTINE 14MG/24HR PATCH TRANSDERM SCH (08:56)
[2018-08-16] MEDS: OXYBUTYNIN CHLORIDE 5 MG TAB PO SCH ×2 (08:56→21:04)
[2018-08-16] MEDS: ACETAMINOPHEN TAB 325 MG TAB PO PRN ×2 (08:58→21:07)
[2018-08-16] MEDS: TERBINAFINE 1% CREAM 15 GM TUBE TOPICAL SCH ×2 (12:26→21:05)
--- NOTE | 2018-08-16 13:40 | P.PN ---
Progress Note - Text Interval history: The patient is found in the [facility] she follows me to an interview room. She indicates better. He states the voices are still present and are just mumbling. She reports having some difficulty sleeping last night but staff reported she slept 7 hours. She admits she has been napping during the day and she is encouraged to stay awake during the day. She has been attending groups. Appetite stable. She has no questions or concerns regarding her medication. Mental status exam: The patient is alert she is dressed in her own clothing hygiene grooming adequate. Speech is fluent spontaneous nonpressured. She reports no suicidal or homicidal ideation intent or plan. She states that the auditory hallucinations are present but noncommanding and are mumbled. She demonstrates no tangential thinking loose associations or flight of ideas. He demonstrates no verbal or physical aggressiveness she demonstrates no involuntary repetitive movements. Overall she is pleasant and cooperative and easily directed. Plan: The patient will continue on her current medication we will monitor her for safety. We will monitor her ability to sleep at night. Vital signs reviewed. She is encouraged to continue complying with the milieu. We will assess her status tomorrow in terms of discharge planning.
[2018-08-16] MEDS: ATORVASTATIN 20 MG TAB PO SCH (21:04)
[2018-08-16] MEDS: PALIPERIDONE 6 MG TAB.ER.24 PO SCH (21:04)
[2018-08-16] MEDS: tiZANidine 4 MG TAB PO PRN (21:09)
[2018-08-17 05:31] VITALS: TEMP 97.7
[2018-08-17] MEDS: NICOTINE 14MG/24HR PATCH TRANSDERM SCH (08:34)
[2018-08-17] MEDS: FLUoxetine HCL 20 MG CAP PO SCH (08:34)
[2018-08-17] MEDS: NAPROXEN 250 MG TAB PO PRN (08:34)
[2018-08-17] MEDS: FAMOTIDINE 20 MG TAB PO PRN (08:35)
[2018-08-17] MEDS: OXYBUTYNIN CHLORIDE 5 MG TAB PO SCH (08:35)
[2018-08-17] MEDS: tiZANidine 4 MG TAB PO PRN (08:37)
[2018-08-17] MEDS: TERBINAFINE 1% CREAM 15 GM TUBE TOPICAL SCH (08:39)
[2018-08-17 08:47] VITALS: BP 140/87; PULSE 99
--- NOTE | 2018-08-17 11:50 | P.DS ---
Providers Date of admission: 08/13/18 13:57 Expected date of discharge: 08/17/18 Attending physician: Jaden Corral Consults: 08/13/18 14:12 Consult Physician Routine Consulting Provider: Carlita Calderon Consult Reason/Comments: H&P and medical Do you want consulting provider notified?: Yes Primary care physician: Jose Bullock, DO - Discharge Diagnosis(es) (1) Schizoaffective disorder Current Visit: Yes Status: Acute Priority: High (2) Cannabis use disorder, mild, abuse Current Visit: Yes Status: Acute Priority: Medium (3) Cocaine use disorder Current Visit: Yes Status: Acute Priority: Medium Hospital Course: Brief summary of admission note: This patient is a 43-year-old female was admitted to the mental health unit through the emergency room. She presented with suicidal ideation with thoughts of hanging herself or jumping off of a bridge. She describes severe auditory and visual hallucinations telling her to harm herself and others. She had visions of seeing blood everywhere. This occurs in the context of her drug screen being p ositive for marijuana and cocaine. For full details please refer to my psychiatric evaluation dated 08/14/2018. Summary of hospital course: The patient was admitted to the mental health unit she signed in voluntarily. We reviewed her presenting symptoms and treatment options. We decided to change her psychotropic medication to invega 6 mg at bedtime. We were able to transition off of Abilify and Seroquel as she had been on 2 antipsychotics. We continued Prozac 20 mg twice daily. The patient for the most part participated in groups she demonstrated no agitated behavior. She was seen by internal medicine for routine history and physical exam. Social work met with the patient for a psychosocial assessment and for discharge planning purposes. She reported that her symptoms improved greatly during the course of her stay. She states the hallucinations have reduced down to "mumbling". She indicates that she cannot understand what they're saying and there are no commands. Mental status exam: The patient is alert she's just her own clothing hygiene grooming adequate. Eye contact appropriate speech is fluent spontaneous nonpressured. She is edentulous on her lower jaw. She reports her mood is much improved affect is bright and euthymic in appearance. She denies having any suicidal or homicidal ideation intent or plan. She endorses auditory hallucinations in the form of "mumbling". She states there are no command auditory hallucinations and she cannot understand anything it's being said. She endorses no visual hallucinations. She is endorsing no specific delusions. There is no objective evidence of acute psychosis at this time. Thought process is free of any tangential thinking loose associations or flight of ideas. She does not appear hypomanic or manic. She is oriented to person place and date. She demonstrates future oriented thinking. She demonstrates no involuntary repetitive movements. Impressions 1. Schizoaffective disorder depressed type, cannabis use disorder, Cocaine use disorder 2. Medical comorbidities including chronic back pain, hyperlipidemia, urinary frequency Plan: The patient will be discharged mental health unit today to return to her prior residence. She states social work and contact her roommates and they will be the individuals picking her up from the mental health unit. [facility] She will continue on invega 6 mg at bedtime Prozac 20 mg twice daily. She is instructed to abstain from any use of alcohol marijuana or illicit drugs. We discussed that these will exacerbate her symptoms of psychosis an elevator safety risk. She does not wish to participate in inpatient chemical dependency treatment. At this time there is no imminent safety risk she is appropriate for transition to outpatient care. She is instructed to return to the hospital with any acute safety concerns. Patient Condition at Discharge: Stable Plan - Discharge Summary Discharge Rx Participant: No New Discharge Prescriptions: New Nicotine 14Mg/24Hr Patch [Habitrol] 1 patch TRANSDERM DAILY #12 patch Paliperidone [Invega] 6 mg PO HS #30 tab.er.24 Continue Oxybutynin Chloride [Ditropan] 5 mg PO BID Simvastatin [Zocor] 40 mg PO HS Ranitidine HCl [Zantac] 150 mg PO BID PRN PRN Reason: STOMACH Naproxen [Naprosyn] 500 mg PO BID PRN PRN Reason: Pain tiZANidine [Zanaflex] 2 - 4 mg PO TID PRN PRN Reason: Spasms FLUoxetine HCL [PROzac] 20 mg PO BID 30 Days #60 cap Discontinued HYDROcodone/APAP 7.5-325MG [[place] 7.5-325] 1 tab PO Q8H PRN PRN Reason: Pain ARIPiprazole [Abilify] 30 mg PO DAILY 30 Days QUEtiapine [SEROquel] 50 mg PO HS 30 Days tab Discharge Medication List Naproxen [Naprosyn] 500 mg PO BID PRN 08/29/16 [History] Oxybutynin Chloride [Ditropan] 5 mg PO BID 08/29/16 [History] Ranitidine HCl [Zantac] 150 mg PO BID PRN 08/29/16 [History] Simvastatin [Zocor] 40 mg PO HS 08/29/16 [History] tiZANidine [Zanaflex] 2 - 4 mg PO TID PRN 08/29/16 [History] FLUoxetine HCL [PROzac] 20 mg PO BID 30 Days #60 cap 08/17/18 [Rx] Nicotine 14Mg/24Hr Patch [Habitrol] 1 patch TRANSDERM DAILY #12 patch 08/17/18 [Rx] Paliperidone [Invega] 6 mg PO HS #30 tab.er.24 08/17/18 [Rx] Follow up Appointment(s)/Referral(s): [facility] [Outside] - 1 Week (08/23/18 at [address] Stern 08/24/18 at 2pm with Rosa) Jose Bullock DO [Primary Care Provider] - 1-2 days
== END 2018-08-17 15:38 | disposition home or self-care (01) | DRG 885 ==
LOC: EC 09:25 → 3MHU 13:57
PROVIDERS: ADMIT Psychiatry & Neurology Psychiatry; ATTEND Psychiatry & Neurology Psychiatry
DX: F25.1 Schizoaffective disorder, depressive type (principal); R45.851 Suicidal ideations; E78.5 Hyperlipidemia, unspecified; F12.10 Cannabis abuse, uncomplicated; F14.90 Cocaine use, unspecified, uncomplicated; F17.200 Nicotine dependence, unspecified, uncomplicated; G89.29 Other chronic pain; K21.9 Gastro-esophageal reflux disease without esophagitis; N32.81 Overactive bladder; M54.5 Low back pain; E66.3 Overweight; Z68.34 Body mass index [BMI] 34.0-34.9, adult; Z79.899 Other long term (current) drug therapy; Z91.5 Personal history of self-harm; Z91.410 Personal history of adult physical and sexual abuse; Z91.19 Patient's noncompliance with other medical treatment and regimen; Z81.8 Family history of other mental and behavioral disorders; Z83.3 Family history of diabetes mellitus; Z80.0 Family history of malignant neoplasm of digestive organs; Z80.49 Family history of malignant neoplasm of other genital organs
CPT/HCPCS: 80053; 80061; 80306; 83036; 84443; 85025; 99285

== ENCOUNTER 2023-04-18 13:02 | Emergency (ER) | payer MEDICARE, OTHER ==
--- NOTE | 2023-04-18 14:32 | ED ---
Psych HPI - General Source: patient, RN notes reviewed Mode of arrival: ambulatory Limitations: no limitations <Jahaira Minor - Last Filed: 04/18/23 14:32> - General Source: patient, RN notes reviewed Mode of arrival: ambulatory Limitations: no limitations <Julian Perez - Last Filed: 04/18/23 22:52> <Johnathan Desai - Last Filed: 04/19/23 15:51> - General Chief Complaint: Psychiatric Symptoms Stated Complaint: Mental Health Time Seen by Provider: 04/18/23 14:32 - History of Present Illness Initial Comments: This is a 47-year-old female who presents to the emergency department for psychiatric evaluation. Patient has history of polysubstance abuse and schizoaffective disorder, and is also homeless. Believes that there are bugs crawling on her. She was admitted to the psychiatric unit in February for the same problem. Not currently taking the psychiatric medications that she was prescribed. Denies any suicidal or homicidal ideations. (Jahaira Minor) This a 39-year-old female presents emergency Department course for psychiatric evaluation. Patient states that she is currently homeless feels that bugs are crawling all over and she has meant that she supposed be on medications for her schizoaffective disorder. Patient denies homicidal ideation she does admit to suicidal ideation currently. She also admits to use of crack. Denies alcohol use (Julian Perez) - Related Data Home Medications Medication Instructions Recorded Confirmed No Known Home Medications 04/19/23 04/19/23 Allergies Allergy/AdvReac Type Severity Reaction Status Date / Time No Known Allergies Allergy Verified 04/19/23 08:42 Review of Systems ROS Other: All systems not noted in ROS Statement are negative. <Jahaira Minor - Last Filed: 04/18/23 14:32> ROS Other: All systems not noted in ROS Statement are negative. <Julian Perez - Last Filed: 04/18/23 22:52> ROS Other: All systems not noted in ROS Statement are negative. <Johnathan Desai - Last Filed: 04/19/23 15:51> ROS Statement: Those systems with pertinent positive or pertinent negative responses have been documented in the HPI. Past Medical History Past Medical History: GERD/Reflux, Hyperlipidemia Additional Past Medical History / Comment(s): overactive bladder, chronic back pain History of Any Multi-Drug Resistant Organisms: None Reported Past Surgical History: Cholecystectomy Past Anesthesia/Blood Transfusion Reactions: No Reported Reaction Past Psychological History: Bipolar, Schizophrenia Smoking Status: Current every day smoker Past Alcohol Use History: None Reported Past Drug Use History: Cocaine, Marijuana, Methamphetamine - Past Family History Father Additional Family Medical History / Comment(s): Father in his 50s from mesothelioma. Mother Additional Family Medical History / Comment(s): Mother is alive at age 64 with history of colon cancer and diabetes. Brother(s) Family Medical History: COPD Additional Family Medical History / Comment(s): Patient has 4 brothers and one has scoliosis. She does not have contact with the others. Sister(s) Additional Family Medical History / Comment(s): She has one sister with mental health issues. Daughter(s) Additional Family Medical History / Comment(s): Patient has 2 daughters and one has uterine cancer. She does not have any sons. <Jahaira Minor - Last Filed: 04/18/23 14:32> General Exam Limitations: no limitations <Jahaira Minor - Last Filed: 04/18/23 14:32> General appearance: alert, in no apparent distress Head exam: Present: atraumatic, normocephalic, normal inspection Eye exam: Present: normal appearance, PERRL, EOMI. Absent: scleral icterus, conjunctival injection, periorbital swelling ENT exam: Present: normal exam, mucous membranes moist Neck exam: Present: normal inspection, full ROM. Absent: tenderness, meningismus, lymphadenopathy Respiratory exam: Present: normal lung sounds bilaterally. Absent: respiratory distress, wheezes, rales, rhonchi, stridor Cardiovascular Exam: Present: regular rate, normal rhythm, normal heart sounds. Absent: systolic murmur, diastolic murmur, rubs, gallop, clicks Neurological exam: Present: alert, oriented X3, CN II-XII intact Psychiatric exam: Present: flat affect <Julian Perez - Last Filed: 04/18/23 22:52> - General Exam Comments Initial Comments: Visual Physical Exam Vital signs reviewed General: Well-appearing, nontoxic, no acute distress. Head: Normocephalic, atraumatic Eyes: PERRLA, EOMI ENT: Airway patent Chest: Nonlabored breathing Skin: No visual rash, normal skin tone Neuro: Alert and oriented 3 Musculoskeletal: No gross abnormalities I performed the QuickNote portion of this chart. Signed Jahaira Minor PA-C. (Jahaira Minor) Course Vital Signs 04/18/23 04/19/23 13:19 06:13 Temperature 98.6 F 98.5 F Pulse Rate 70 73 Respiratory 16 16 Rate Blood Pressure 127/72 114/72 O2 Sat by Pulse 96 99 Oximetry Medical Decision Making <Johnathan Desai N - Last Filed: 04/19/23 15:51> - Medical Decision Making Was pt. sent in by a medical professional or institution (TARA Alexander, SHADE MATCHER, urgent care, hospital, or long-term...) When possible be specific @ -No Did you speak to anyone other than the patient for history (EMS, parent, family, police, friend...)? What history was obtained from this source @ -No Did you review nursing and triage notes (agree or disagree)? Why? @ -I reviewed and agree with nursing and triage notes Were old charts reviewed (outside hosp., previous admission, EMS record, old EKG, old radiological studies, urgent care reports/EKG's, long-term records)? Report findings @ -No old charts were reviewed Differential Diagnosis (chest pain, altered mental status, abdominal pain women, abdominal pain men, vaginal bleeding, weakness, fever, dyspnea, syncope, headache, dizziness, GI bleed, back pain, seizure, CVA, palpatations, mental health, musculoskeletal)? @ Differential Mental Health Depression, anxiety, bipolar, psychosis, schizophrenia, borderline personality, situational depression, adjustment disorder, behavioral disorder, brain tumor, malingering, substance abuse, encephalopathy, medication reaction, dementia, hypothyroidism, degenerative neurologic disorder, lupus.... This is not meant to be all-inclusive list EKG interpreted by me (3pts min.). @ -As above X-rays interpreted by me (1pt min.). @ -None done CT interpreted by me (1pt min.). @ -None done U/S interpreted by me (1pt. min.). @ -None done What testing was considered but not performed or refused? (CT, X-rays, U/S, labs)? Why? @ -None What meds were considered but not given or refused? Why? @ -None Did you discuss the management of the patient with other professionals (professionals i.e. , PA, SHADE MATCHER, lab, RT, psych nurse, social media campaign manager, hotel reservation agent, teacher, code enforcement officer, director of casework department)? Give summary @ -No Was smoking cessation discussed for >3mins.? @ -No Was critical care preformed (if so, how long)? @ -No Were there social determinants of health that impacted care today? How? (Homelessness, low income, unemployed, alcoholism, drug addiction, transportation, low edu. Level, literacy, decrease access to med. care, longterm, rehab)? @ -No Was there de-escalation of care discussed even if they declined (Discuss DNR or withdrawal of care, Hospice)? DNR status @ -No What co-morbidities impacted this encounter? (DM, HTN, Smoking, COPD, CAD, Cancer, CVA, ARF, Chemo, Hep., AIDS, mental health diagnosis, sleep apnea, morbid obesity)? @ -None Was patient admitted / discharged? Hospital course, mention meds given and route, prescriptions, significant lab abnormalities, going to OR and other pertinent info. @Patient evaluated by EPS and felt to require inpatient psychiatric evaluation treatment. Request was made for clinical certification. I did complete a clinical certification after evaluating the patient. She will be transferred for further psychiatric treatment. Undiagnosed new problem with uncertain prognosis? @ -No Drug Therapy requiring intensive monitoring for toxicity (Heparin, Nitro, Insulin, Cardizem)? @ -No Were any procedures done? @ -No Diagnosis/symptom? @ -Suicidal ideation, acute psychosis Acute, or Chronic, or Acute on Chronic? @Acute Uncomplicated (without systemic symptoms) or Complicated (systemic symptoms)? @ -default Side effects of treatment? @ -No Exacerbation, Progression, or Severe Exacerbation? @ -No Poses a threat to life or bodily function? How? (Chest pain, [place], [place], pneumonia, PE, COPD, DKA, ARF, appy, cholecystitis, CVA, Diverticulitis, Homicidal, Suicidal, threat to staff... and all critical care pts) @ -yes, self-harm (Johnathan eDsai) Disposition <Jahaira Minor - Last Filed: 04/18/23 14:32> <Julian Perez M - Last Filed: 04/18/23 22:52> Is patient prescribed a controlled substance at d/c from ED?: No Time of Disposition: 15:51 - Out of Hospital Transfer - Req. Specs Out of Hospital Transfer - Requested Specifics: Psychiatric Non-ICU (Transferred for further psychiatric evaluation and treatment) <Johnathan Desai - Last Filed: 04/19/23 15:51> Clinical Impression: Depression, Psychosis, Suicidal ideation Disposition: OTHER INSTITUTION NOT DEFINED Condition: Stable Referrals: None,Stated [Primary Care Provider] - 1-2 days
[2023-04-19 16:48] LABS: Amphetamine Screen,Urine Not Detected (NotDetected); Barbiturate Screen,Urine Not Detected (NotDetected); Benzodiazepines Screen,Urine Not Detected (NotDetected); Cocaine Screen,Urine Detected (NotDetected); Methadone Screen, Urine Not Detected (NotDetected); Opiate Screen,Urine Not Detected (NotDetected); Oxycodone Screen, Urine Not Detected (NotDetected); Phencyclidine Screen,Urine Not Detected (NotDetected); Tricyclic Antidepressant,Urine Not Detected (NotDetected); Urn Cannabinoid Scrn Detected (NotDetected)
[2023-04-19 19:21] LABS: HCT 48.7 % (34.0-46.0); HGB 15.8 gm/dL (11.4-16.0); MCH 30.4 pg (25.0-35.0); MCHC 32.5 g/dL (31.0-37.0); MCV 93.5 fL (80.0-100.0); Mean Platelet Volume 8.1; Platelet Count 326 k/uL (150-450); RDW 13.4 % (11.5-15.5); WBC 7.9 k/uL (3.8-10.6)
[2023-04-19 19:28] LABS: ALT 44 U/L (4-34); AST 39 U/L (14-36); African American GFR (CKD) >90 (>60 ml/min/1.73 sqM); Albumin 3.9 g/dL (3.5-5.0); Alkaline Phosphatase 65 U/L (38-126); Anion Gap 6 mmol/L; Blood Urea Nitrogen 11 mg/dL (7-17); Calcium 9.6 mg/dL (8.4-10.2); Carbon Dioxide 25 mmol/L (22-30); Chloride 107 mmol/L (98-107); Glucose 87 mg/dL (74-99); Non-African American GFR(CKD) >90 (>60 ml/min/1.73 sqM); Potassium 4.7 mmol/L (3.5-5.1); Sodium 138 mmol/L (137-145); Total Bilirubin 0.5 mg/dL (0.2-1.3); Total Protein 6.9 g/dL (6.3-8.2)
[2023-04-19 21:01] VITALS: RESP 18; TEMP 98.3
[2023-04-19] MEDS ORDERED: LORazepam 1 MG TAB PO STA (23:19)
[2023-04-19] MEDS ORDERED: NICOTINE 21MG/24HR PATCH TRANSDERM STA (23:23)
[2023-04-20 05:48] VITALS: BP 117/79; PULSE 73
[2023-04-20] MEDS ORDERED: LORazepam 1 MG TAB PO STA (12:52)
== END 2023-04-20 16:50 | disposition other institution (70) ==
LOC: EC 13:02
DX: F32.A Depression, unspecified (principal); F29 Unspecified psychosis not due to a substance or known physiological condition; R45.851 Suicidal ideations; F17.200 Nicotine dependence, unspecified, uncomplicated; F12.90 Cannabis use, unspecified, uncomplicated; F14.90 Cocaine use, unspecified, uncomplicated; F15.90 Other stimulant use, unspecified, uncomplicated; Z20.822 Contact with and (suspected) exposure to COVID-19
CPT/HCPCS: 82075; 36415; 80053; 85027; 81025; 80306; 87635; 99285; S4990

== ENCOUNTER 2023-10-31 17:34 | Inpatient (IN) | payer MEDICARE, MEDICAID ==
--- NOTE | 2023-10-31 19:43 | ED ---
General Adult HPI - General Chief complaint: Psychiatric Symptoms Stated complaint: Suicidal Time Seen by Provider: 10/31/23 18:00 Source: patient, RN notes reviewed, old records reviewed Mode of arrival: ambulatory Limitations: no limitations - History of Present Illness Initial comments: This is a 48-year-old female who presents to the emergency department stating that she is suicidal. Patient states she tried to kill herself by using street drugs she recently has done cocaine and states that she cannot remember the last time she did methamphetamine but she has done it recently. Patient states she just wants to she has no reason to live. Patient denies any physical complaints today. Patient denies any chest pain. Patient has any shortness of breath or difficulty breathing. Patient has any abdominal pain patient has nausea vomiting. Patient is any fever chills or cough. - Related Data Home Medications Medication Instructions Recorded Confirmed No Known Home Medications 04/19/23 04/19/23 Allergies Allergy/AdvReac Type Severity Reaction Status Date / Time No Known Allergies Allergy Verified 10/30/23 11:35 Review of Systems ROS Statement: Those systems with pertinent positive or pertinent negative responses have been documented in the HPI. ROS Other: All systems not noted in ROS Statement are negative. Past Medical History Past Medical History: GERD/Reflux, Hyperlipidemia Additional Past Medical History / Comment(s): overactive bladder, chronic back pain History of Any Multi-Drug Resistant Organisms: None Reported Past Surgical History: Cholecystectomy Past Anesthesia/Blood Transfusion Reactions: No Reported Reaction Past Psychological History: Bipolar, Schizophrenia Smoking Status: Current every day smoker Past Alcohol Use History: None Reported Past Drug Use History: Cocaine, Marijuana, Methamphetamine - Past Family History Father Additional Family Medical History / Comment(s): Father in his 50s from mesothelioma. Mother Additional Family Medical History / Comment(s): Mother is alive at age 64 with history of colon cancer and diabetes. Brother(s) Family Medical History: COPD Additional Family Medical History / Comment(s): Patient has 4 brothers and one has scoliosis. She does not have contact with the others. Sister(s) Additional Family Medical History / Comment(s): She has one sister with mental health issues. Daughter(s) Additional Family Medical History / Comment(s): Patient has 2 daughters and one has uterine cancer. She does not have any sons. General Exam - General Exam Comments Initial Comments: GENERAL: Patient is well-developed and well-nourished. Patient is nontoxic and well- hydrated and is in no acute distress. ENT: Neck is soft and supple. No significant lymphadenopathy is noted. Oropharynx is clear. Moist mucous membranes. Neck has full range of motion without eliciting any pain. EYES: The sclera were anicteric and conjunctiva were pink and moist. Extraocular movements were intact and pupils were equal round and reactive to light. Eyelids were unremarkable. PULMONARY: Unlabored respirations. Good breath sounds bilaterally. No audible rales rhonchi or wheezing was noted. CARDIOVASCULAR: There is a regular rate and rhythm without any murmurs gallops or rubs. ABDOMEN: Soft and nontender with normal bowel sounds. SKIN: Skin is clear with no lesions or rashes and otherwise unremarkable. NEUROLOGIC: Patient is alert and oriented x3. Cranial nerves II through XII are grossly intact. Motor and sensory are also intact. Normal speech, volume and content. Symmetrical smile. MUSCULOSKELETAL: Normal extremities with adequate strength and full range of motion. LYMPHATICS: No significant lymphadenopathy is noted PSYCHIATRIC: Patient states she wants to kill herself by using excessive amount of street drugs. Patient states this has been an ongoing thought for about a week Limitations: no limitations Course Vital Signs 10/31/23 17:42 Temperature 98.4 F Pulse Rate 69 Respiratory 16 Rate Blood Pressure 104/50 O2 Sat by Pulse 95 Oximetry Medical Decision Making - Medical Decision Making Was pt. sent in by a medical professional or institution (TARA Alexander, POSTAL WORKER, urgent care, hospital, or longterm...) When possible be specific @ -No Did you speak to anyone other than the patient for history (EMS, parent, family, police, friend...)? What history was obtained from this source @ -No Did you review nursing and triage notes (agree or disagree)? Why? @ -I reviewed and agree with nursing and triage notes Were old charts reviewed (outside hosp., previous admission, EMS record, old EKG, old radiological studies, urgent care reports/EKG's, longterm records)? Report findings @ -No old charts were reviewed Differential Diagnosis (chest pain, altered mental status, abdominal pain women, abdominal pain men, vaginal bleeding, weakness, fever, dyspnea, syncope, headache, dizziness, GI bleed, back pain, seizure, CVA, palpatations, mental health, musculoskeletal)? @ -Differential Mental Health Depression, anxiety, bipolar, psychosis, schizophrenia, borderline personality, situational depression, adjustment disorder, behavioral disorder, brain tumor, malingering, substance abuse, encephalopathy, medication reaction, dementia, hypothyroidism, degenerative neurologic disorder, lupus.... This is not meant to be all-inclusive list EKG interpreted by me (3pts min.). @ -As above X-rays interpreted by me (1pt min.). @ -None done CT interpreted by me (1pt min.). @ -None done U/S interpreted by me (1pt. min.). @ -None done What testing was considered but not performed or refused? (CT, X-rays, U/S, labs)? Why? @ -None What meds were considered but not given or refused? Why? @ -None Did you discuss the management of the patient with other professionals (professionals i.e. , PA, POSTAL WORKER, lab, RT, psych nurse, social services technician, global program director, teacher, gift officer, insurance case manager)? Give summary @ -EPS evaluated the patient spoke with psychiatry and agreed that the patient needed to be admitted. Was smoking cessation discussed for >3mins.? @ -No Was critical care preformed (if so, how long)? @ -35 minutes Were there social determinants of health that impacted care today? How? (Homelessness, low income, unemployed, alcoholism, drug addiction, transportation, low edu. Level, literacy, decrease access to med. care, nursing home, rehab)? @ -No Was there de-escalation of care discussed even if they declined (Discuss DNR or withdrawal of care, Hospice)? DNR status @ -No What co-morbidities impacted this encounter? (DM, HTN, Smoking, COPD, CAD, Cancer, CVA, ARF, Chemo, Hep., AIDS, mental health diagnosis, sleep apnea, morbid obesity)? @ -None Was patient admitted / discharged? Hospital course, mention meds given and route, prescriptions, significant lab abnormalities, going to OR and other pertinent info. @ -Patient states she is suicidal and EPS in association with the psychiatrist. The patient need to be admitted patient will be admitted Undiagnosed new problem with uncertain prognosis? @ -No Drug Therapy requiring intensive monitoring for toxicity (Heparin, Nitro, Insulin, Cardizem)? @ -No Were any procedures done? @ -No Diagnosis/symptom? @ -Suicidal ideations Acute, or Chronic, or Acute on Chronic? @ -Acute Uncomplicated (without systemic symptoms) or Complicated (systemic symptoms)? @ -Comp Side effects of treatment? @ -No Exacerbation, Progression, or Severe Exacerbation? @ -No Poses a threat to life or bodily function? How? (Chest pain, [place], [place], pneumonia, PE, COPD, DKA, ARF, appy, cholecystitis, CVA, Diverticulitis, Homicidal, Suicidal, threat to staff... and all critical care pts) @ -Yes this could lead to attempt and Disposition Clinical Impression: Depression, Suicidal ideation Disposition: ADMITTED IP TO THIS HOSP Referrals: None,Stated [Primary Care Provider] - 1-2 days Time of Disposition: 20:15
[2023-10-31] MEDS ORDERED: MAG HYDROX/AL HYDROX/SIMETH 355 ML BOTTLE PO PRN (22:11)
[2023-10-31] MEDS ORDERED: HALOPERIDOL LACTATE 5 MG/ML 1 ML VIAL IM PRN (22:11)
[2023-10-31] MEDS ORDERED: LORazepam 2 MG/ML INJ IM PRN (22:11)
[2023-10-31] MEDS ORDERED: ACETAMINOPHEN TAB 325 MG TAB PO PRN (22:11)
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
[2023-11-01] MEDS: NICOTINE 14MG/24HR PATCH TRANSDERM SCH (13:33)
[2023-11-01 13:46] LABS: Basophils # (A) 0.1 k/uL (0-0.2); Basophils % (A) 1 %; Eosinophils # (A) 0.2 k/uL (0-0.7); Eosinophils % (A) 2 %; HCT 47.2 % (34.0-46.0); HGB 14.6 gm/dL (11.4-16.0); Lymphocytes # (A) 2.5 k/uL (1.0-4.8); Lymphocytes % (A) 40 %; MCH 29.2 pg (25.0-35.0); MCHC 31.1 g/dL (31.0-37.0); MCV 93.9 fL (80.0-100.0); Mean Platelet Volume 7.7; Monocytes # (A) 0.4 k/uL (0-1.0); Monocytes % (A) 7 %; Neutrophils % (A) 48 %; Platelet Count 257 k/uL (150-450); RBC 5.02 m/uL (3.80-5.40); RDW 13.9 % (11.5-15.5); WBC 6.2 k/uL (3.8-10.6)
[2023-11-01 13:57] LABS: ALT 22 U/L (4-34); AST 20 U/L (14-36); African American GFR (CKD) >90 (>60 ml/min/1.73 sqM); Albumin 3.4 g/dL (3.5-5.0); Alkaline Phosphatase 73 U/L (38-126); Anion Gap 3 mmol/L; Bilirubin, Delta 0.2 mg/dL (0.0-0.2); Bilirubin,Unconjugated 0.2 mg/dL (0.0-1.1); Blood Urea Nitrogen 10 mg/dL (7-17); Calcium 9.2 mg/dL (8.4-10.2); Carbon Dioxide 28 mmol/L (22-30); Chloride 108 mmol/L (98-107); Glucose 93 mg/dL (74-99); Non-African American GFR(CKD) >90 (>60 ml/min/1.73 sqM); Potassium 4.5 mmol/L (3.5-5.1); Sodium 139 mmol/L (137-145); Total Bilirubin 0.4 mg/dL (0.2-1.3)
[2023-11-01] MEDS: IBUPROFEN 600 MG TAB PO PRN (18:34)
[2023-11-01 20:10] LABS: LDL Cholesterol,Calculated 58.1 mg/dL (0.0-131.0)
[2023-11-01] MEDS: OLANZapine 10 MG TAB PO SCH (21:14)
[2023-11-01] MEDS: GABAPENTIN 100 MG CAP PO SCH (21:14)
[2023-11-02 00:19] LABS: Appearance,Urine Cloudy (Clear); Bacteria,Urine Moderate /hpf; Bilirubin,Urine Negative (Negative); Blood,Urine Negative (Negative); Color,Urine Colorless; Glucose,Urine (UA) Negative (Negative); Ketones,Urine Negative (Negative); Leukocyte Esterase,Urine Negative (Negative); Mucus,Urine Few /hpf; Nitrite,Urine Negative (Negative); PH, Urine 6.5 (5.0-8.0); Protein,Urine Negative (Negative); RBC,Urine 1 /hpf (0-5); Squamous Epithelial Cell,Urine 25 /hpf (0-4); Urobilinogen,Urine <2.0 mg/dL (<2.0); WBC,Urine 5 /hpf (0-5)
[2023-11-02 00:27] LABS: Amphetamine Screen,Urine Not Detected (NotDetected); Barbiturate Screen,Urine Not Detected (NotDetected); Benzodiazepines Screen,Urine Not Detected (NotDetected); Cocaine Screen,Urine Detected (NotDetected); Methadone Screen, Urine Not Detected (NotDetected); Opiate Screen,Urine Not Detected (NotDetected); Oxycodone Screen, Urine Not Detected (NotDetected); Phencyclidine Screen,Urine Not Detected (NotDetected); Tricyclic Antidepressant,Urine Not Detected (NotDetected); Urn Cannabinoid Scrn Detected (NotDetected)
--- NOTE | 2023-11-02 01:18 | P.PN ---
Progress Note - Text Progress Note Date: 11/02/23 Attempted to see the patient in the mental health unit. The patient was agitated and became hostile during the beginning stages of the interview at which point she refused to answer any further questions or be examined.
[2023-11-02] MEDS: FLUoxetine HCL 20 MG CAP PO SCH (09:20)
--- NOTE | 2023-11-02 14:04 | P.PN ---
Progress Note - Text Progress Note Date: 11/02/23 Clinical Problems: Schizophrenia, chronic paranoid type with acute exacerbation, cannabis use disorder, manage phentermine use disorder, rule out benzodiazepine use disorder Interim history: I reviewed the medical record and attempted to interview Willy again. She would not get out of bed. However, unlike yesterday she spoke. She says she does not speak to me or get out of bed because she is tired. She denied problems or concerns. Yesterday she complained that no one was listening to her if she was unaware of the medication changes. She has not participated in therapeutic groups or activities. She spends her time in bed coming out for meals. Mental status exam: He presented as a moderately obese middle-aged female who is laying in bed. She opened her eyes when I called her name and spoke briefly. She did not appear to be responding to internal stimuli. Assessment: Her fatigue is likely secondary to methamphetamine withdrawal Plan: Continue inpatient treatment. Safe precautions. Outpatient medications consolidated-Ditropan 5 mg twice daily, Zyprexa 20 mg at bedtime, gabapentin 100 mg at bedtime, Prozac 20 mg daily. Ativan and/or Haldol IM/p.o. as needed for agitation or or aggressive behavior. Encourage participation in therapeutic groups and activities. Evaluate clinical status response to treatment today basis.
[2023-11-02] MEDS: oxyBUTYnin chloride 5 MG TAB PO SCH (21:04)
--- NOTE | 2023-11-03 13:50 | P.PN ---
Progress Note - Text Progress Note Date: 11/03/23 Clinical Problems: Schizophrenia, chronic paranoid type with acute exacerbation, cannabis use disorder, methamphetamine use disorder, rule out benzodiazepine use disorder Interim history: I reviewed the medical record, interviewed the patient and discussed the treatment and treatment plan with the treatment team. Attempted to interview Willy again. She would not get out of bed. She did not open her eyes or speak to me. When I asked her if she had any problems or concerns she motions with her head to the negative. Y She has not participated in therapeutic groups or activities. She spends her time in bed coming out for meals. Mental status exam: Lj presented as a moderately obese middle-aged female who is laying in bed. She was electively mute. She did not appear to be responding to internal stimuli. Assessment: Methamphetamine withdrawal Plan: Continue inpatient treatment. Safe precautions. Outpatient medications consolidated-Ditropan 5 mg twice daily, Zyprexa 20 mg at bedtime, gabapentin 100 mg at bedtime, Prozac 20 mg daily. Ativan and/or Haldol IM/p.o. as needed for agitation or or aggressive behavior. Encourage participation in therapeutic groups and activities. Evaluate clinical status response to treatment today basis.
[2023-11-03] MEDS: LORazepam 1 MG TAB PO PRN (21:14)
--- NOTE | 2023-11-04 16:59 | P.PN ---
Progress Note - Text Progress Note Date: 11/04/23 Interval history: Patient was found asleep in bed this afternoon and is minimally engaged on awakening. Per nursing note, patient has been guarded, withdrawn, irritable, disheveled, needing encouragement to shower. At this time patient denies any suicidal or homicidal ideation, intent or plan. Patient denies any side effects from the medications and has been compliant with meds. She quickly returns to sleep after answering a few questions. Mental status exam: General Appearance: Patient appears to be stated age, obese, laying in bed and covered in blankets. Behavior: Laying in bed, minimally engaged, poor eye contact, goes back to sleep. Speech: Patient's speech is fluent, soft tone and non-pressured. Mood/Affect: Mood is irritable, affect is congruent and constricted. Suicidality/Homicidality: Patient denies having any suicidal or homicidal ideation intent or plan. Perceptions: Unable to fully assess due to patient being too sleepy currently. Though content/process: There is evidence of paranoid delusional thought content. Thought process is concrete. Memory and concentration: Sleepy Judgment and insight: poor Assessment/Plan: Continue with current diagnosis. Patient continues to meet criteria for inpatient psychiatric admission for symptom stabilization and safety. Patient will be maintained on current psychotropic medication regimen. Monitor for medication compliance and for any psychotropic medication side effects. Will continue to monitor ongoing response to treatment. Encouraged participation in milieu.
--- NOTE | 2023-11-04 18:50 | P.PN ---
Progress Note - Text Progress Note Date: 11/04/23 I did attempt to see this patient today, however, nursing informed me that upon informing the patient that I was there to evaluate the patient, patient refused to be seen by medical services at this time. Please reconsult us if patient improves to the point where she would like medical evaluation.
[2023-11-05] MEDS: MAGNESIUM HYDROXIDE 2,400 MG/30 ML CUP PO PRN (14:49)
--- NOTE | 2023-11-05 21:08 | P.PN ---
Progress Note - Text Progress Note Date: 11/05/23 Interval history: Patient was found wandering in the hallway and was agreeable to speak with this food writer. She is pleasant and smiling, wants to talk to me about feeling "worried but excited about getting a new place" to live. She reports mood, sleep and appetite are good. At this time patient denies any suicidal or homicidal ideation, intent or plan. She reports she hears voices "always" but denies any command auditory hallucinations. Patient denies any side effects from the medications and has been compliant with meds. She received Ativan 1 mg x1 this afternoon for anxiety. Mental status exam: General Appearance: Patient appears to be stated age, obese, fair hygien e/grooming, edentulous, wearing shirt with cigarette hole in it Behavior: Wandering the hallway, calm, pleasant, attempts to cooperate Speech: Patient's speech is fluent, soft tone, and non-pressured. Mood/Affect: Mood is good, affect is congruent with broadly smiling. Suicidality/Homicidality: Patient denies having any suicidal or homicidal ideation intent or plan. Perceptions: She reports auditory hallucinations "always", denies VH. She does not appear to be responding to internal stimuli. Though content/process: There is no evidence paranoid delusional thought content. Thought process is concrete. Memory and concentration: AOx3 Judgment and insight: fair Assessment/Plan: Continue with current diagnosis. Patient continues to meet criteria for inpatient psychiatric admission for symptom stabilization and safety. Patient will be maintained on current psychotropic medication regimen. Monitor for medication compliance and for any psychotropic medication side effects. Will continue to monitor ongoing response to treatment. Encouraged participation in milieu.
[2023-11-06] MEDS: haloperidoL 5 MG TAB PO PRN (01:48)
--- NOTE | 2023-11-06 11:46 | P.PN ---
Progress Note - Text Progress Note Date: 11/06/23 Interval History: Patient was seen wandering the hallways and was directable and agreeable to sp kyleigh with keno writer / runner in the office. Patient states she is ok today. She claims that she is getting too much sleep. She states that she can not cope right now, because her SSI is on hold. Itinerant Teacher Assistant spoke with patient about rehab, patient states that she would go to outpatient rehab, but not inpatient rehab. Patient is focused on discharge. At this time patient denies any suicidal or homicidal ideations, intent or plan. Patient endorses auditory hallucinations, visual hallucinations and denies any paranoia or delusions. Patient denies any side effects from the medications and has been compliant with meds. Mental Status Exam: General Appearance: Patient appears to be stated age, obese, fair hygiene/grooming, edentulous, wearing her own clothes Behavior: Wandering the hallway, calm, pleasant, attempts to cooperate Speech: Patient's speech is fluent, soft tone, and non-pressured. Mood/Affect: Mood is ok, affect is congruent Suicidality/Homicidality: Patient denies having any suicidal or homicidal ideation intent or plan. Perceptions: She reports auditory hallucinations "always", denies VH. She does not appear to be responding to internal stimuli. Though content/process: There is no evidence paranoid delusional thought content. Thought process is concrete. Memory and concentration: AOx3 Judgment and insight: fair Assessment: schizophrenia cannabis use disorder methamphetamine use disorder cocaine use disorder nicotine dependance Plan: -Patient continues to meet criteria for inpatient psychiatric admission for symptom stabilization and safety. Patient has signed adult voluntary form and medication consent and was placed in patient's chart. -Medications: change Gabapentin 100 mg p.o. nightly PRN for pain, decrease Zyprexa 15mg p.o. nightly, increase Prozac 40 mg daily, -When necessary Ativan and Haldol for agitation/aggression. -NRT - nicotine patch -SW on board for discharge planning. Encouraged the patient to participate in milieu. possible d.c in 2-3 days. patient is refusing rehab at this time.
[2023-11-06] MEDS: FLUoxetine HCL 20 MG CAP PO STA (12:17)
[2023-11-06] MEDS: OLANZapine 7.5 MG TAB PO SCH (20:59)
[2023-11-06] MEDS: GABAPENTIN 100 MG CAP PO PRN (21:00)
[2023-11-07] MEDS: FLUoxetine HCL 20 MG CAP PO SCH (09:01)
[2023-11-07 11:24] LABS: T4, Free (Free Thyroxine) 0.8 ng/dL (0.78-2.19)
[2023-11-07] MEDS ORDERED: traZODone HCL 50 MG TAB PO PRN (11:27)
--- NOTE | 2023-11-07 11:52 | P.PN ---
Progress Note - Text Progress Note Date: 11/07/23 Interval History: Patient was seen wandering the hallways and was directable and agreeable to sp kyleigh with insurance underwriter in the office. Patient states her mood is pretty good today, and her anxiety is a little high. Patient states that she was excited last night, because she found a place that she can stay when she is discharged. Patient did sign an AMA, however, insurance underwriter told patient that she will be discharged tomorrow, if she continues to be stable. Patient is going to groups. Patient is focused on discharge. At this time patient denies any suicidal or homicidal ideations, intent or plan. Patient denies auditory hallucinations, visual hallucinations and denies any paranoia or delusions. Patient denies any side effects from the medications and has been compliant with meds. Mental Status Exam: General Appearance: Patient appears to be stated age, obese, fair hygiene/grooming, edentulous, wearing her own clothes Behavior: Wandering the hallway, calm, pleasant, attempts to cooperate Speech: Patient's speech is fluent, soft tone, and non-pressured. Mood/Affect: Mood is good, affect is congruent, improving Suicidality/Homicidality: Patient denies having any suicidal or homicidal ideation intent or plan. Perceptions: She denies auditory hallucinations, denies VH. She does not appear to be responding to internal stimuli. Though content/process: There is no evidence paranoid delusional thought content. Thought process is concrete. Memory and concentration: AOx3 Judgment and insight: fair Assessment: schizophrenia cannabis use disorder methamphetamine use disorder cocaine use disorder nicotine dependance Plan: -Patient continues to meet criteria for inpatient psychiatric admission for symptom stabilization and safety. Patient has signed adult voluntary form and medication consent and was placed in patient's chart. -Medications: Gabapentin 100 mg p.o. nightly PRN for pain, Zyprexa 15mg p.o. nightly, Prozac 40 mg daily, Add Trazodone 50mg qhs prn for sleep. -When necessary Ativan and Haldol for agitation/aggression. -NRT - nicotine patch -SW on board for discharge planning. Encouraged the patient to participate in milieu. Probably discharge tomorrow. patient is refusing rehab at this time.
[2023-11-08 07:14] VITALS: BP 90/54; PULSE 56; RESP 14; TEMP 97.1
--- NOTE | 2023-11-08 11:08 | P.DS ---
Providers Date of admission: 10/31/23 21:21 Expected date of discharge: 11/08/23 Attending physician: Michael Plasencia MD Consults: 10/31/23 22:11 Consult Physician Routine Consulting Provider: Carlita Calderon Consult Reason/Comments: Medical H&P Do you want consulting provider notified?: Yes Primary care physician: Stated None - Discharge Diagnosis(es) (1) Schizophrenia Current Visit: No Status: Chronic Priority: Medium (2) Cannabis use disorder Current Visit: No Status: Acute Priority: Medium (3) Cocaine use disorder Current Visit: No Status: Acute Priority: Medium (4) Methamphetamine abuse Current Visit: No Status: Acute Priority: High (5) Nicotine dependence Current Visit: No Status: Acute Priority: Low Hospital Course: Admission HPI: Admission note was completed by Dr Chadwick " Willy is a 48-year-old female who presented to the emergency department with complaints of suicidal ideation. She told the emergency physician that she tried to kill herself by using street drugs. She said that she wants to and has no reason to live. Review of the medical records and attempted to overdose speak with her. She refused to speak. According to the EPS note she presented to the ED with suicidal ideation and a plan to hang herself. She told the APS nurse that she is hearing voices that tell her that she should run because "they are going to kill her." She also reported visual hallucinations of blood. She admitted to using cocaine. Her UDS from 10/29/2023 ED presentation was positive for amphetamine, methamphetamine, benzodiazepines, cocaine and marijuana." Hospital course: Upon admission to the unit patient was directable and agreeable to commence treatment and signed adult voluntary form. Patient signed an AMA during her hospitalization. Patient was initially fairly isolative however with time and treatment she eventually got along well with other patients on the unit and followed unit protocol. Patient was compliant with the medications and denied any side effects throughout hospital course. Patient was started on gabapentin 100 mg nightly as needed for pain as her home dose, Zyprexa 15 mg p.o. nightly for psychosis/mood stabilization/insomnia, Prozac increased to 40 mg daily for mood/anxiety, trazodone 50 mg nightly as needed for insomnia.. Patient spoke of her stressors and engaged in therapy both group and individual. Patient was also seen by medical team for history and physical exam. Throughout the course of the hospitalization patient gradually improved with regards to mood, anxiety, psychosis, sleep and returned back to their baseline level of functioning. On the day of discharge patient denied any suicidal or homicidal ideations intent or plan denied any auditory or visual hallucinations. Patient endorsed wanting to live for her future and her health. The patient denied any access to guns or weapons. Patient denied any paranoia and did not endorse any delusions. Patient does have a significant history of substance abuse and was counseled on abstaining from all substances including alcohol and marijuana. Patient was offered however declined inpatient substance-abuse rehab. Patient elected to do outpatient substance use treatment program through [facility]. Patient was also counseled on the medications and need for regular compliance and was encouraged to follow-up with their outpatient appointment for mental health and also for primary care. Patient was allowed to go to her friend's house upon discharge and will be staying there, she will be following up at [facility]. Mental status exam: General Appearance: Patient appears to be mildly overweight, stated age is alert, pleasant, and cooperative. Patient is in no acute distress and has improved hygiene and grooming Behavior: Patient is calmly seated without any agitated behavior. Speech: Patient's speech is fluent and nonpressured. Mood/Affect: Patient reports their mood is "better", affect is congruent and euthymic. Suicidality/Homicidality: Patient denies having any suicidal or homicidal ideation intent or plan. Perceptions: Patient denies any auditory or visual hallucinations. Though content/process: There is no evidence of any delusional thought content and thought process is linear and goal-directed. More future oriented Memory and concentration: AOX3, grossly intact for the purposes of this session. Can spell "WORLD" backwards correctly. Judgment and insight: Chronically poor, however has improved with guarded pr ognosis Impression: schizophrenia cannabis use disorder methamphetamine use disorder cocaine use disorder nicotine dependance Plan: -Continue with discharge today as patient has improved and stabilized psychiatrically and is not currently an imminent threat to herself and/or others. Patient will remain at chronically elevated risk for harm to self and/or others due to her impulsivity and polysubstance abuse. -Continue medications: Gabapentin 100 mg p.o. nightly for pain, Zyprexa 15 mg p.o. nightly for mood stabilization/psychosis/insomnia, Prozac 40 mg daily for mood/anxiety, trazodone 50 mg nightly as needed for insomnia -Patient was counseled on the need for medication compliance and appropriate follow-up at mental health and also primary care for medical issues. Patient verbalized understanding and agreed. -Social work to help coordinate patient's discharge today. Social work also to arrange for patients follow up appointments with [facility] for psychiatric care along with follow up with primary care provider. -Patient counseled on abstaining from recreational drugs and marijuana and alcohol. Was informed/educated on the adverse effects on their physical and mental health. Patient verbally agreed and understood. Patient was offered substance abuse treatment however declined at this time. -Patient was instructed to return to the hospital or seek immediate medical care if their psychiatric or medical symptoms do worsen or reoccur. Allergies Allergy/AdvReac Type Severity Reaction Status Date / Time No Known Allergies Allergy Verified 10/31/23 20:40 Laboratory Results WBC 6.2 k/uL (3.8-10.6) 11/01/23 12:55 RBC 5.02 m/uL (3.80-5.40) 11/01/23 12:55 Hgb 14.6 gm/dL (11.4-16.0) 11/01/23 12:55 Hct 47.2 % (34.0-46.0) H 11/01/23 12:55 MCV 93.9 fL (80.0-100.0) 11/01/23 12:55 MCH 29.2 pg (25.0-35.0) 11/01/23 12:55 MCHC 31.1 g/dL (31.0-37.0) 11/01/23 12:55 RDW 13.9 % (11.5-15.5) 11/01/23 12:55 Plt Count 257 k/uL (150-450) 11/01/23 12:55 MPV 7.7 11/01/23 12:55 Neutrophils % 48 % 11/01/23 12:55 Lymphocytes % 40 % 11/01/23 12:55 Monocytes % 7 % 11/01/23 12:55 Eosinophils % 2 % 11/01/23 12:55 Basophils % 1 % 11/01/23 12:55 Neutrophils # 3.0 k/uL (1.3-7.7) 11/01/23 12:55 Lymphocytes # 2.5 k/uL (1.0-4.8) 11/01/23 12:55 Monocytes # 0.4 k/uL (0-1.0) 11/01/23 12:55 Eosinophils # 0.2 k/uL (0-0.7) 11/01/23 12:55 Basophils # 0.1 k/uL (0-0.2) 11/01/23 12:55 Sodium 139 mmol/L (137-145) 11/01/23 12:55 Potassium 4.5 mmol/L (3.5-5.1) 11/01/23 12:55 Chloride 108 mmol/L (98-107) H 11/01/23 12:55 Carbon Dioxide 28 mmol/L (22-30) 11/01/23 12:55 Anion Gap 3 mmol/L 11/01/23 12:55 BUN 10 mg/dL (7-17) 11/01/23 12:55 Creatinine 0.59 mg/dL (0.52-1.04) 11/01/23 12:55 Est GFR (CKD-EPI)AfAm >90 (>60 ml/min/1.73 sqM) 11/01/23 12:55 Est GFR (CKD-EPI)NonAf >90 (>60 ml/min/1.73 sqM) 11/01/23 12:55 Glucose 93 mg/dL (74-99) 11/01/23 12:[address] Glu mg/dL 123 mg/dL 11/01/23 12:55 Hemoglobin A1c 5.9 % (<=6.0) 11/01/23 12:55 Calcium 9.2 mg/dL (8.4-10.2) 11/01/23 12:55 Total Bilirubin 0.4 mg/dL (0.2-1.3) 11/01/23 12:55 Conjugated Bilirubin 0.0 mg/dL (0.0-0.3) 11/01/23 12:55 Unconjugated Bilirubin 0.2 mg/dL (0.0-1.1) 11/01/23 12:55 Delta Bilirubin 0.2 mg/dL (0.0-0.2) 11/01/23 12:55 AST 20 U/L (14-36) 11/01/23 12:55 ALT 22 U/L (4-34) 11/01/23 12:55 Alkaline Phosphatase 73 U/L (38-126) 11/01/23 12:55 Total Protein 6.0 g/dL (6.3-8.2) L 11/01/23 12:55 Albumin 3.4 g/dL (3.5-5.0) L 11/01/23 12:55 Triglycerides 204.00 mg/dL (0.00-149.00) H 11/01/23 12:55 Cholesterol 137.00 mg/dL (0.00-200.00) 11/01/23 12:55 LDL Cholesterol, Calc 58.1 mg/dL (0.0-131.0) 11/01/23 12:55 VLDL Cholesterol, Calc 40.80 mg/dL (5.00-40.00) H 11/01/23 12:55 HDL Cholesterol 38.10 mg/dL (40.00-60.00) L 11/01/23 12:55 Cholesterol/HDL Ratio 3.60 Ratio 11/01/23 12:55 TSH 0.324 mIU/L (0.465-4.680) L 11/01/23 12:55 Free T4 0.80 ng/dL (0.78-2.19) 11/07/23 10:31 Free T3 pg/mL 3.10 pg/mL (2.30-4.20) 11/07/23 10:31 Urine Color Colorless 11/01/23 23:55 Urine Appearance Cloudy (Clear) H 11/01/23 23:55 Urine pH 6.5 (5.0-8.0) 11/01/23 23:55 Ur Specific [place] 1.010 (1.001-1.035) 11/01/23 23:55 Urine Protein Negative (Negative) 11/01/23 23:55 Urine Glucose (UA) Negative (Negative) 11/01/23 23:55 Urine Ketones Negative (Negative) 11/01/23 23:55 Urine Blood Negative (Negative) 11/01/23 23:55 Urine Nitrite Negative (Negative) 11/01/23 23:55 Urine Bilirubin Negative (Negative) 11/01/23 23:55 Urine Urobilinogen <2.0 mg/dL (<2.0) 11/01/23 23:55 Ur Leukocyte Esterase Negative (Negative) 11/01/23 23:55 Urine RBC 1 /hpf (0-5) 11/01/23 23:55 Urine WBC 5 /hpf (0-5) 11/01/23 23:55 Ur Squamous Epith Cells 25 /hpf (0-4) H 11/01/23 23:55 Urine Bacteria Moderate /hpf (None) H 11/01/23 23:55 Urine Mucus Few /hpf (None) H 11/01/23 23:55 Urine HCG, Qual Not Detected (Not Detectd) 11/01/23 23:55 Urine Opiates Screen Not Detected (NotDetected) 11/01/23 23:55 Ur Oxycodone Screen Not Detected (NotDetected) 11/01/23 23:55 Urine Methadone Screen Not Detected (NotDetected) 11/01/23 23:55 Ur Barbiturates Screen Not Detected (NotDetected) 11/01/23 23:55 U Tricyclic Antidepress Not Detected (NotDetected) 11/01/23 23:55 Ur Phencyclidine Scrn Not Detected (NotDetected) 11/01/23 23:55 Ur Amphetamines Screen Not Detected (NotDetected) 11/01/23 23:55 U Methamphetamines Scrn Detected (NotDetected) H 11/01/23 23:55 U Benzodiazepines Scrn Not Detected (NotDetected) 11/01/23 23:55 Urine Cocaine Screen Detected (NotDetected) H 11/01/23 23:55 U Marijuana (THC) Screen Detected (NotDetected) H 11/01/23 23:55 SARS-CoV-2 (PCR) Not Detected (Not Detectd) 10/31/23 20:05 Vital Signs Temp 97.1 F L 11/08/23 06:30 Pulse 56 L 11/08/23 06:30 Resp 14 11/08/23 06:30 BP 90/54 11/08/23 06:30 Pulse Ox 95 11/07/23 06:00 FiO2 Patient Condition at Discharge: Stable Plan - Discharge Summary New Discharge Prescriptions: New oxyBUTYnin chloride [Ditropan] 5 mg PO BID 30 Days #60 tab Ibuprofen [Motrin] 600 mg PO Q6HR PRN tab PRN Reason: Moderate Pain (Scale 4 To 6) Gabapentin [Neurontin] 100 mg PO HS PRN 3 Days #3 cap PRN Reason: Pain FLUoxetine HCL [PROzac] 40 mg PO DAILY 30 Days #30 cap traZODone HCL [Desyrel] 50 mg PO HS PRN 14 Days #14 tab PRN Reason: Insomnia Nicotine 14Mg/24Hr Patch [Habitrol] 1 patch TRANSDERM DAILY 14 Days #14 patch OLANZapine [ZyPREXA] 15 mg PO HS 30 Days #30 tablet Continue Omeprazole 20 mg PO DAILY 30 Days #30 cap Atorvastatin [Lipitor] 20 mg PO DAILY 30 Days #30 tab Discontinued oxyBUTYnin chloride [Ditropan] 5 mg PO BID OLANZapine [ZyPREXA] 20 mg PO HS rOPINIRole HCL [Requip] 4 mg PO HS Gabapentin [Neurontin] 100 mg PO HS FLUoxetine HCL [PROzac] 20 mg PO DAILY Deutetrabenazine [Austedo Xr] 12 mg PO HS Discharge Medication List Atorvastatin [Lipitor] 20 mg PO DAILY 30 Days #30 tab 11/08/23 [Rx] FLUoxetine HCL [PROzac] 40 mg PO DAILY 30 Days #30 cap 11/08/23 [Rx] Gabapentin [Neurontin] 100 mg PO HS PRN 3 Days #3 cap 11/08/23 [Rx] Ibuprofen [Motrin] 600 mg PO Q6HR PRN tab 11/08/23 [Rx] Nicotine 14Mg/24Hr Patch [Habitrol] 1 patch TRANSDERM DAILY 14 Days #14 patch 11/08/23 [Rx] OLANZapine [ZyPREXA] 15 mg PO HS 30 Days #30 tablet 11/08/23 [Rx] Omeprazole 20 mg PO DAILY 30 Days #30 cap 11/08/23 [Rx] oxyBUTYnin chloride [Ditropan] 5 mg PO BID 30 Days #60 tab 11/08/23 [Rx] traZODone HCL [Desyrel] 50 mg PO HS PRN 14 Days #14 tab 11/08/23 [Rx] Follow up Appointment(s)/Referral(s): [facility] [Outside] - 11/10/23 1:00 pm (11/10/2023 1:00PM - 2:00PM BART ADEN 11/14/2023 11:00AM - 12:00PM TRACY GUEVARA ) [facility] [NON-STAFF] - 1 Week Patient Instructions/Handouts: How to Stop Smoking (DC), Schizoaffective Disorder (DC) Activity/Diet/Wound Care/Special Instructions: Avoid the use of street drugs and alcohol. Take all medications as prescribed. When you are in need of refills on your medications, please contact your medical provider and/or outpatient psychiatrist/provider to have this done. Please go to your scheduled outpatient appointment for aftercare treatment. If symptoms return or become worse, call the crisis line at and/or go to the nearest emergency room for evaluation. National Suicide Hotline 988. Follow up with PCP regarding low TSH. Discharge Disposition: HOME SELF-CARE
== END 2023-11-08 11:41 | disposition home or self-care (01) | DRG 885 ==
LOC: EC 17:34 → 3MHU 21:21
PROVIDERS: ADMIT Psychiatry & Neurology Psychiatry; ATTEND Psychiatry & Neurology Psychiatry
DX: F20.0 Paranoid schizophrenia (principal); F15.23 Other stimulant dependence with withdrawal; R45.851 Suicidal ideations; F14.90 Cocaine use, unspecified, uncomplicated; F12.90 Cannabis use, unspecified, uncomplicated; E78.5 Hyperlipidemia, unspecified; F17.200 Nicotine dependence, unspecified, uncomplicated; N32.81 Overactive bladder; Z56.0 Unemployment, unspecified; Z79.899 Other long term (current) drug therapy; Z81.8 Family history of other mental and behavioral disorders; Z82.5 Family history of asthma and other chronic lower respiratory diseases; Z83.3 Family history of diabetes mellitus; Z91.51 Personal history of suicidal behavior; Z11.52 Encounter for screening for COVID-19
CPT/HCPCS: 80053; 80061; 80306; 81001; 81025; 82075; 82248; 83036; 84439; 84443; 84481; 85025; 87635; 99291

== ENCOUNTER 2023-11-27 10:48 | Inpatient (IN) | payer MEDICARE, MEDICAID ==
--- NOTE | 2023-11-27 14:15 | ED ---
Psych HPI - General Chief Complaint: Psychiatric Symptoms Stated Complaint: Mental Health Time Seen by Provider: 11/27/23 11:00 Source: patient, RN notes reviewed Mode of arrival: ambulatory Limitations: no limitations - History of Present Illness Initial Comments: 48-year-old female presents emergency department chief complaint of depression, hearing voices, suicide nation. Patient states that this has been worsening she states she is homeless does not have recurrent medications. Patient states she does use crack cocaine. Denies any alcohol abuse. Patient states that the voices are making her want to harm himself. Denies any homicidal ideation - Related Data Previous Rx's Medication Instructions Recorded Atorvastatin [Lipitor] 20 mg PO DAILY 30 Days #30 tab 11/08/23 FLUoxetine HCL [PROzac] 40 mg PO DAILY 30 Days #30 cap 11/08/23 Gabapentin [Neurontin] 100 mg PO HS PRN 3 Days #3 cap 11/08/23 Ibuprofen [Motrin] 600 mg PO Q6HR PRN tab 11/08/23 Nicotine 14Mg/24Hr Patch [Habitrol] 1 patch TRANSDERM DAILY 14 Days 11/08/23 #14 patch OLANZapine [ZyPREXA] 15 mg PO HS 30 Days #30 tablet 11/08/23 Omeprazole 20 mg PO DAILY 30 Days #30 cap 11/08/23 oxyBUTYnin chloride [Ditropan] 5 mg PO BID 30 Days #60 tab 11/08/23 traZODone HCL [Desyrel] 50 mg PO HS PRN 14 Days #14 tab 11/08/23 Allergies Allergy/AdvReac Type Severity Reaction Status Date / Time No Known Allergies Allergy Verified 11/27/23 19:53 Review of Systems ROS Statement: Those systems with pertinent positive or pertinent negative responses have been documented in the HPI. ROS Other: All systems not noted in ROS Statement are negative. Past Medical History Past Medical History: GERD/Reflux, Hyperlipidemia Additional Past Medical History / Comment(s): overactive bladder, chronic back pain History of Any Multi-Drug Resistant Organisms: None Reported Past Surgical History: Cholecystectomy Past Anesthesia/Blood Transfusion Reactions: No Reported Reaction Past Psychological History: Bipolar, Schizophrenia Smoking Status: Current every day smoker Past Alcohol Use History: None Reported Past Drug Use History: Cocaine, Marijuana, Methamphetamine - Past Family History Father Additional Family Medical History / Comment(s): Father in his 50s from mesothelioma. Mother Additional Family Medical History / Comment(s): Mother is alive at age 64 with history of colon cancer and diabetes. Brother(s) Family Medical History: COPD Additional Family Medical History / Comment(s): Patient has 4 brothers and one has scoliosis. She does not have contact with the others. Sister(s) Additional Family Medical History / Comment(s): She has one sister with mental health issues. Daughter(s) Additional Family Medical History / Comment(s): Patient has 2 daughters and one has uterine cancer. She does not have any sons. General Exam Limitations: no limitations General appearance: alert, in no apparent distress Head exam: Present: atraumatic, normocephalic, normal inspection Eye exam: Present: normal appearance, PERRL, EOMI. Absent: scleral icterus, conjunctival injection, periorbital swelling Neck exam: Present: normal inspection, full ROM. Absent: tenderness, meningismus, lymphadenopathy Respiratory exam: Present: normal lung sounds bilaterally. Absent: respiratory distress, wheezes, rales, rhonchi, stridor Cardiovascular Exam: Present: regular rate, normal rhythm, normal heart sounds. Absent: systolic murmur, diastolic murmur, rubs, gallop, clicks Neurological exam: Present: alert, oriented X3, CN II-XII intact Psychiatric exam: Present: anxious Skin exam: Present: warm, dry, intact, normal color. Absent: rash Course Vital Signs 11/27/23 11/27/23 11/27/23 10:51 19:10 19:20 Temperature 97.7 F 97.8 F 97.8 F Pulse Rate 65 64 64 Respiratory 22 18 18 Rate Blood Pressure 115/74 108/65 108/65 O2 Sat by Pulse 96 95 95 Oximetry Medical Decision Making - Medical Decision Making Was pt. sent in by a medical professional or institution (, PA, LIMITED RADIOLOGY TECHNICIAN, urgent care, hospital, or care home...) When possible be specific @ -No Did you speak to anyone other than the patient for history (EMS, parent, family, police, friend...)? What history was obtained from this source @ -No Did you review nursing and triage notes (agree or disagree)? Why? @ -I reviewed and agree with nursing and triage notes Were old charts reviewed (outside hosp., previous admission, EMS record, old EKG, old radiological studies, urgent care reports/EKG's, care home records)? Report findings @ -No old charts were reviewed Differential Diagnosis (chest pain, altered mental status, abdominal pain women, abdominal pain men, vaginal bleeding, weakness, fever, dyspnea, syncope, headache, dizziness, GI bleed, back pain, seizure, CVA, palpatations, mental health, musculoskeletal)? @ -Differential Mental Health Depression, anxiety, bipolar, psychosis, schizophrenia, borderline personality, situational depression, adjustment disorder, behavioral disorder, brain tumor, malingering, substance abuse, encephalopathy, medication reaction, dementia, hypothyroidism, degenerative neurologic disorder, lupus.... This is not meant to be all-inclusive list EKG interpreted by me (3pts min.). @ -None X-rays interpreted by me (1pt min.). @ -None done CT interpreted by me (1pt min.). @ -None done U/S interpreted by me (1pt. min.). @ -None done What testing was considered but not performed or refused? (CT, X-rays, U/S, labs)? Why? @ -None What meds were considered but not given or refused? Why? @ -None Did you discuss the management of the patient with other professionals (professionals i.e. , PA, LIMITED RADIOLOGY TECHNICIAN, lab, RT, psych nurse, social worker masters, answerer, teacher, radiation officer, case assistant)? Give summary @ -EPS evaluated patient recommended inpatient psychiatric treatment Was smoking cessation discussed for >3mins.? @ -No Was critical care preformed (if so, how long)? @ -No Were there social determinants of health that impacted care today? How? (Homelessness, low income, unemployed, alcoholism, drug addiction, transportation, low edu. Level, literacy, decrease access to med. care, retirement, rehab)? @ -No Was there de-escalation of care discussed even if they declined (Discuss DNR or withdrawal of care, Hospice)? DNR status @ -No What co-morbidities impacted this encounter? (DM, HTN, Smoking, COPD, CAD, Cancer, CVA, ARF, Chemo, Hep., AIDS, mental health diagnosis, sleep apnea, m orbid obesity)? @ -None Was patient admitted / discharged? Hospital course, mention meds given and route, prescriptions, significant lab abnormalities, going to OR and other pertinent info. @ -Admitted to [facility] for psychiatric treatment Undiagnosed new problem with uncertain prognosis? @ -No Drug Therapy requiring intensive monitoring for toxicity (Heparin, Nitro, Insulin, Cardizem)? @ -No Were any procedures done? @ -No Diagnosis/symptom? @ -Psychosis, depression, drug abuse Acute, or Chronic, or Acute on Chronic? @ -Acute Uncomplicated (without systemic symptoms) or Complicated (systemic symptoms)? @ -Complicated Side effects of treatment? @ -No Exacerbation, Progression, or Severe Exacerbation? @ -No Poses a threat to life or bodily function? How? (Chest pain, USA, MD, pneumonia, PE, COPD, DKA, ARF, appy, cholecystitis, CVA, Diverticulitis, Homicidal, Suicidal, threat to staff... and all critical care pts) @ -Yes patient is suicidal - Lab Data Lab Results 11/27/23 Range/Units 13:23 SARS-CoV-2 (PCR) Not Detected (Not Detectd) Disposition Clinical Impression: Acute psychosis, Depression Disposition: TRANSFER TO PSYCH HOSP/UNIT
[2023-11-27] MEDS ORDERED: LORazepam 2 MG/ML INJ IM PRN (19:02)
[2023-11-27] MEDS ORDERED: MAGNESIUM HYDROXIDE 2,400 MG/30 ML CUP PO PRN (19:02)
[2023-11-27] MEDS: traZODone HCL 50 MG TAB PO PRN (20:36)
[2023-11-27] MEDS: OLANZapine 5 MG TAB PO SCH (20:36)
[2023-11-27] MEDS: LORazepam 1 MG TAB PO PRN (20:37)
[2023-11-27] MEDS: oxyBUTYnin chloride 5 MG TAB PO SCH (20:40)
--- NOTE | 2023-11-27 21:10 | P.HP ---
Psychiatric H&P - . H&P Date: 11/27/23 History & Physical: Allergies Allergy/AdvReac Type Severity Reaction Status Date / Time No Known Allergies Allergy Verified 11/27/23 19:53 Vital Signs Temp 97.5 F L 11/27/23 20:24 Pulse 63 11/27/23 20:24 Resp 15 11/27/23 20:24 BP 123/81 11/27/23 20:24 Pulse Ox 95 11/27/23 20:24 FiO2 Intake & Output 11/27/23 11/27/23 11/28/23 06:59 18:59 06:59 Weight 90.718 kg 92.164 kg Laboratory Last Values SARS-CoV-2 (PCR) Not Detected (Not Detectd) 11/27/23 13:23 11/27/23 21:10 Psychiatric Evaluation Identifying Data: Mr. Acevedo is 31 years old, single, white male, who is currently homeless. Chief Complaint: I fell of the bed and wanted to get checked up History of Psychiatric Illness- The patient noted that he was doing fine till he fell off the bed 2 weeks ago. He came to ER to make sure that nothing is wrong with him. He noted seeing things like shadows moving on the wall and people in the room. He also started having repeated thoughts of suicide. All these symptoms after the fall. The patient noted that he has been compliant with his medications He got his last Prolixin D 2 weeks ago. He goes to [facility] for his out-pt follow-up. The patient has had approximately 5-6 admissions to psychiatric hospital for schizoaffective disorder since 2014. The patient noted that he has been under psychiatric care since childhood. The patient noted that he was diagnosed with Schizophrenia and Bipolar disorder. Past Psychiatric History: As stated above. Past Medication History: Risperdal [place], Prolixin D Depakote. He does not remember other medications. Leading questions: The patient denied /admitted to Depression and Anxiety. Denied SI or HI. Denied symptoms consistent with psychosis Drugs and alcohol history: Marijuana in the past. No other drug abuse. No Alcohol abuse. Past Medical history: None significant. Family History of Psychiatric Disorder: Sister has Schizophrenia. Grandmother suffered from psychiatric illness; details not known. Social History and Family History: The patient was born and raised in [place]. He grew-up with three siblings. He finished HS. The patient noted that he has been going to college to get Mast ers in 8 subjects for past 14 years. He has no significant history of gainful employment. OTC: None. Allergies: None. Objective: MSE: Alert and attentive. Orientation times three Dressed and Groomed: Appropriately. Pleasant and cooperative. Psychomotor Activity: Normal. Speech: Normal in tone, quality and quantity. Mood: Depressed. Affect: Flat SI or HI: The patient noted that his hallucinations and suicidal thoughts are getting better since he is taking medications on the unit. Perceptual disturbance: No overt hallucinations noted. Thought Content: No paranoia. Mild grandiose ideas noted. No other delusional thinking noted. Thought Process: Normal. Cognition: Intact Judgment and Insight: Poor AIMS: Normal Labs: Available labs reviewed. Diagnosis: Schizoaffective Disorder depressed type. Plan and Recommendations: Continue current Medications. Prolixn D 50 mg to be given today and then in 14 days. Monitor MS and side effects of medications and adjust medications acc ordingly. Provide supportive psychotherapy and psychoeducation. The patient provided psychoeducation. The patient to attend cardozo Milieu. TSH, Lipid Profile ordered. Medication Consent with explanation of risk/benefits and side effects: Explained and obtained.
--- NOTE | 2023-11-28 04:03 | P.PN ---
Progress Note - Text Progress Note Date: 11/28/23 Attempted to see patient in the mental health unit. The patient refused to be seen or be evaluated.
[2023-11-28] MEDS: FLUoxetine HCL 20 MG CAP PO SCH (11:52)
[2023-11-28] MEDS: ATORVASTATIN 20 MG TAB PO SCH (11:52)
[2023-11-28] MEDS: PANTOPRAZOLE 40 MG TABLET PO SCH (11:53)
[2023-11-28] MEDS: NICOTINE 14MG/24HR PATCH TRANSDERM SCH (11:56)
--- NOTE | 2023-11-28 12:48 | P.HP ---
Psychiatric H&P - . H&P Date: 11/28/23 History & Physical: 11/28/23 12:45 Psychiatric Evaluation Identifying Data: Ms. Ge is a 48 years old, , white female, who lives in [place], [place] Chief Complaint: I am suicidal History of Psychiatric Illness- The patient presented to the ER with complaints of depression, hearing voices and suicidal ideations. The voices are telling her to kill herself by hanging. She expressed paranoid thoughts being followed by people. The patient refused to talk, stating that she took medications and feels very tired and sleepy. The patient was encouraged to wake-up so her initial evaluation can be done, the refused. As per chart, the patient was here last month with similar complaints. She does have history of Schizophrenia and drug induced Psychosis. She admitted to using cocaine. Past Psychiatric History: The patient has been under psychiatric treatment since age 10. She has had numerous psychiatric admissions in the past. She has made multiple suicidal attempts in the past. She also has h/o of self-mutilating beh avior. Leading questions: The patient admitted to Depression and Anxiety. Admitted to SI or HI. Denied symptoms consistent with psychosis Drugs and alcohol history: The patient has h/o methamphetamine, marijuana, cocaine. Tobacco use: She uses tobacco every day. Past Medical history: Dyslipidemia, GERD, Family History of Psychiatric Disorder: Her maternal grandfather of suicide. Paternal grandfather had schizophrenia. Her daughter has been diagnosed with schizophrenia. Social History and Family History: The patient was born and raised in [place]. She finished GED in alf. She no significant employment history. She is on SSI. OTC: Allergies Objective: MSE: Alert and inattentive. Orientation could not be tested. She dressed in hospital clothes. Disheveled. Indifferent and uncooperative. Psychomotor Activity: Reduced. Speech: low toned, normal in quality and underproductive. Mood: Depressed Affect: Consistent with mood. SI or HI: Admitted to SI and HI Perceptual disturbance: The patient reports hearing command hallucinations. Thought Content: Admitted to paranoia. No other delusional thinking noted. Thought Process: Normal. Cognition: Intact Judgment and Insight: Poor AIMS: Normal Labs: Ordered. Diagnosis: Schizoaffective disorder R/O drug induced disorder Plan and Recommendations: Continue current Medications. Monitor MS and side effects of medications and adjust medications accordingly. Provide supportive psychotherapy and psychoeducation. The patient provided psychoeducation. The patient provided with substance abuse counselling and advised to attend AA/NA Smoke cessation therapy. The patient to attend cardozo Milieu. CBC with Diff, CMP, TSH, Lipid Profile, HbA1c, EKG, Medication Consent with explanation of risk/benefits and side effects: Explained and obtained.
--- NOTE | 2023-11-29 03:09 | P.CONS ---
History of Present Illness - Reason for Consult Consult date: 11/29/23 - History of Present Illness The patient is a 48-year-old female with a PMH of polysubstance abuse, and hyperlipidemia, currently experiencing homelessness who had presented to the emergency room with complaints of depression and hallucinations. The patient was admitted to the mental health unit where she was seen and evaluated. The patient reports that she is currently homeless and that she continues to use crack cocaine amongst other substances. She also reports smoking 2 packs of cigarettes daily. Denied any alcohol use. Denies any additional physical complaints. Denied experiencing chest discomfort, shortness of breath, fever, chills, cough, nausea, vomit, abdominal pain, diarrhea Review of systems: Pertinent positives and negatives as discussed in HPI, a complete review of systems was performed and all other systems are negative. Physical examination: General: non toxic, no distress, appears older than stated age, obese Derm: no unusual rashes/lesions, no unusual ecchymoses, warm, dry Head: atraumatic, normocephalic, symmetric Eyes: EOMI, no lid lag, anicteric sclera ENT: Nose and ears atraumatic, no thrush, no pharyngeal erythema Neck: trachea midline, supple Mouth: no lip lesion, mucus membranes moist Cardiovascular: S1S2 reg, no murmur, no edema Lungs: CTA bilateral, no rhonchi, no rales , no accessory muscle use Abdominal: soft, nontender to palpation, no guarding Ext: no gross muscle atrophy, no contractures, Neuro: No gross focal neuro deficits noted Psych: Alert, oriented, appropriate affect Assessment: Polysubstance abuse Tobacco abuse Psychosis Plan: Advised on the importance of cessation from substance use Defer management of psychosis and depression to primary psychiatry service Thank you for allowing us to participate in the care of this patient. We will follow peripherally. Do not hesitate to contact us with questions. Someone can be reached from the [facility] [place]Note 2[place] hospitalist group at all hours of the day at [phone]. Past Medical History Past Medical History: GERD/Reflux, Hyperlipidemia Additional Past Medical History / Comment(s): overactive bladder, chronic back pain History of Any Multi-Drug Resistant Organisms: None Reported Past Surgical History: Cholecystectomy Past Anesthesia/Blood Transfusion Reactions: No Reported Reaction Past Psychological History: Bipolar, Schizophrenia Smoking Status: Current every day smoker Past Alcohol Use History: None Reported Past Drug Use History: Cocaine, Marijuana, Methamphetamine - Past Family History Father Additional Family Medical History / Comment(s): Father in his 50s from mesothelioma. Mother Additional Family Medical History / Comment(s): Mother is alive at age 64 with history of colon cancer and diabetes. Brother(s) Family Medical History: COPD Additional Family Medical History / Comment(s): Patient has 4 brothers and one has scoliosis. She does not have contact with the others. Sister(s) Additional Family Medical History / Comment(s): She has one sister with mental health issues. Daughter(s) Additional Family Medical History / Comment(s): Patient has 2 daughters and one has uterine cancer. She does not have any sons. Medications and Allergies Home Medications Medication Instructions Recorded Confirmed Type Atorvastatin [Lipitor] 20 mg PO DAILY 30 Days #30 tab 11/08/23 11/27/23 Rx FLUoxetine HCL [PROzac] 40 mg PO DAILY 30 Days #30 cap 11/08/23 11/27/23 Rx Gabapentin [Neurontin] 100 mg PO HS PRN 3 Days #3 cap 11/08/23 11/27/23 Rx Ibuprofen [Motrin] 600 mg PO Q6HR PRN tab 11/08/23 11/27/23 Rx Nicotine 14Mg/24Hr Patch [Habitrol] 1 patch TRANSDERM DAILY 14 Days 11/08/23 11/27/23 Rx #14 patch OLANZapine [ZyPREXA] 15 mg PO HS 30 Days #30 tablet 11/08/23 11/27/23 Rx Omeprazole 20 mg PO DAILY 30 Days #30 cap 11/08/23 11/27/23 Rx oxyBUTYnin chloride [Ditropan] 5 mg PO BID 30 Days #60 tab 11/08/23 11/27/23 Rx traZODone HCL [Desyrel] 50 mg PO HS PRN 14 Days #14 tab 11/08/23 11/27/23 Rx Allergies Allergy/AdvReac Type Severity Reaction Status Date / Time No Known Allergies Allergy Verified 11/27/23 19:53 Physical Exam Vitals: Vital Signs Temp Pulse Resp BP 11/28/23 06:37 97.2 F L 54 L 16 108/68
--- NOTE | 2023-11-29 13:16 | P.PN ---
Progress Note - Text Progress Note Date: 11/29/23 Follow-up Mediation Review Chief Complaint: I am suicidal Subjective: The patient noted that she is hearing voices and feels paranoid. She stated that the voices tell her to kill herself. She also feels that people are out to get her. She reports being homeless. The patient noted that she is not any medications. She has not been going to [facility]. She has been staying in her room and not going to groups or interacting with peers or staff. The patient has not been attending the groups. The participation is limited. The interaction with staff and peers is limited. The patient is compliant with treatment recommendations. Leading questions: The patient admitted to Depression and Anxiety. Admitted to SI or HI. Admitted to paranoia and auditory hallucinations. Sleep and Appetite: Fine. Change in family/ living/job/financial/daily routine: Homeless. Change in medical condition: No change. Change in medications: No change. Side effects from Medications: None. Allergies: No change. Objective- MSE: Alert and attentive. Orientation times three. Dressed and Groomed: Adequately Pleasant and cooperative. Psychomotor Activity: Normal. Speech: Normal in tone, quality, and quantity. Mood: Depressed and anxious. Affect: Superficial and flat SI or HI: Admits to SI and HI Perceptual disturbance: Hears voices. Thought Content: Admits to paranoia. No other delusional thinking noted. Thought Process: Normal. Cognition: Intact Judgment and Insight: Poor AIMS: Normal. Labs: No new labs. Diagnosis: No change. Plan and Recommendations: Continue current Medications. Monitor MS and side effects of medications and adjust medications accordingly. Provide supportive psychotherapy. The patient provided psychoeducation. The patient provided Substance abuse counseling. Smoke cessation therapy. The patient to attend cardozo activities. Medication Consent with explanation of risk/benefits and side effects: Explained and obtained.
[2023-11-29] MEDS: IBUPROFEN 600 MG TAB PO PRN (16:10)
--- NOTE | 2023-11-30 16:08 | P.PN ---
Progress Note - Text Progress Note Date: 11/30/23 Follow-up Mediation Review Chief Complaint: I am feeling good today Subjective: The patient noted that she is feeling pretty good. She rested well last night. Her sleep was good. The patient is no more hearing voices. She has no suicidal or homicidal thoughts. She still thinks about demons but is not bothered by them. Her symptoms have improved dramatically. She appeared in good spirits. She was seen interacting with peers. Overall, much improved from yesterday. The patient has been groups. The participation is adequate. The interaction with staff and peers is good. . The patient is compliant with treatment recommendations. Leading questions: The patient admitted to Depression and Anxiety. Admitted to SI or HI. Admitted to presence of demons. Denied being paranoid. Denied A/V hallucinations. Sleep and Appetite: Fine. Change in family/ living/job/financial/daily routine: The patient noted that she has a friend with who she can stay. Change in medical condition: No change. Change in medications: No change. Side effects from Medications: None. Allergies: No change. Objective- MSE: Alert and attentive. Orientation times three. Dressed and Groomed: Adequately Pleasant and cooperative. Psychomotor Activity: Normal. Speech: Normal in tone, quality, and quantity. Mood: I am feeling good Affect: Consistent with mood. SI or HI: None. Perceptual disturbance: Normal. Thought Content: No paranoia. No other delusional thinking noted, except presence of demons. Thought Process: Normal. Cognition: Intact Judgment and Insight: Fair. AIMS: Normal. Labs: No new labs. Diagnosis: No change. Plan and Recommendations: Continue current Medications. Monitor MS and side effects of medications and adjust medications accordingly. Provide supportive psychotherapy. The patient provided psychoeducation. The patient provided Substance abuse counseling. Smoke cessation therapy. The patient to attend cardozo activities. Medication Consent with explanation of risk/benefits and side effects: Explained and obtained.
[2023-12-01] MEDS: MAG HYDROX/AL HYDROX/SIMETH 355 ML BOTTLE PO PRN (14:53)
--- NOTE | 2023-12-01 15:42 | P.PN ---
Progress Note - Text Progress Note Date: 12/01/23 Follow-up Mediation Review Chief Complaint: I am good Subjective: The patient noted that she is feeling pretty good. Her sleep was good. She is eating good. She had no new complaints. She denied any side effects of medications. She did not talk about demons. She will go to her friend Catrina after discharge. She talked to her friend. She was seen interacting with peers. Overall, much improved since admission. The patient has been attending groups. The participation is adequate. The interaction with staff and peers is good. . The patient is compliant with treatment recommendations. Leading questions: The patient denied Depression and Anxiety. Admitted to SI or HI. Denied being paranoid or having any other delusional thinking. Denied A/V hallucinations. Sleep and Appetite: Fine. Change in family/ living/job/financial/daily routine: No change. Change in medical condition: No change. Change in medications: No change. Side effects from Medications: None. Allergies: No change. Objective- MSE: Alert and attentive. Orientation times three. Dressed and Groomed: Adequately Pleasant and cooperative. Psychomotor Activity: Normal. Speech: Normal in tone, quality, and quantity. Mood: I am feeling good Affect: Consistent with mood. SI or HI: None. Perceptual disturbance: Normal. Thought Content: No paranoia. No other delusional thinking noted, except presence of demons. Thought Process: Normal. Cognition: Intact Judgment and Insight: Fair. AIMS: Normal. Labs: No new labs. Diagnosis: No change. Plan and Recommendations: Continue current Medications. Monitor MS and side effects of medications and adjust medications accordingly. Provide supportive psychotherapy. The patient provided psychoeducation. The patient provided Substance abuse counseling. Smoke cessation therapy. The patient to attend cardozo activities. Medication Consent with explanation of risk/benefits and side effects: Explained and obtained.
[2023-12-01] MEDS: ONDANSETRON ODT 4 MG TAB PO PRN (18:34)
[2023-12-01] MEDS: GABAPENTIN 100 MG CAP PO PRN (21:37)
[2023-12-02 06:41] VITALS: RESP 17; TEMP 97.7
--- NOTE | 2023-12-02 11:37 | P.PN ---
Progress Note - Text Progress Note Date: 12/02/23 Interval History: Patient was seen bedside this morning and was resting. She reports having trou ble sleeping last night despite receiving when necessary trazodone. She endorses continuing to hear auditory hallucinations that "mumble". She states that her mood today is "tired ". She was encouraged to participate in the milieu and sleep more at nighttime. She endorses good appetite and denies other concerns. At this time patient denies any suicidal or homicidal ideations, intent or plan. Patient denies any auditory, visual hallucinations and denies any paranoia or delusions. Patient denies any side effects from the medications and has been compliant with meds. Vital Signs Temp 97.7 F 12/02/23 06:00 Pulse 67 12/02/23 06:00 Resp 17 12/02/23 06:00 BP 87/58 12/02/23 06:00 Pulse Ox 98 12/02/23 06:00 FiO2 Mental Status Exam: Alert and attentive. Orientation times three. Somnolent Dressed and Groomed: Adequately Pleasant and cooperative. Psychomotor Activity: Normal. Speech: Normal in tone, quality, and quantity. Mood: I am feeling tired Affect: Consistent with mood. SI or HI: None. Perceptual disturbance: AH Thought Content: No paranoia. Thought Process: Normal. Cognition: Intact Judgment and Insight: Fair. Assessment Schizoaffective disorder Plan: -Patient continues to meet criteria for inpatient psychiatric admission for symptom stabilization and safety. -Medications: Prozac 40 mg daily, increase Zyprexa to 20 mg qHS for psychosis, trazodone 50 mg qHS PRN for sleep -When necessary Ativan for agitation/aggression. -NRT - [nicotine patch] -SW on board for discharge planning. Encouraged the patient to participate in milieu.
[2023-12-02] MEDS: ACETAMINOPHEN TAB 325 MG TAB PO PRN (14:20)
[2023-12-02] MEDS: OLANZapine 10 MG TAB PO SCH (20:08)
--- NOTE | 2023-12-03 12:08 | P.PN ---
Progress Note - Text Progress Note Date: 12/03/23 Interval History: Patient was seen bedside this morning and was resting. She mumbles that her m ood is currently "tired". She reports continuing to have difficulty sleeping last night despite receiving as needed trazodone but is observed to be resting for much of the day. Again, she was encouraged to participate on the milieu and discussed behavioral activation. She reports auditory hallucinations yelling at her and calling her "b ". She endorses good appetite but did not eat this morning due to her level of somnolence. At this time patient denies any suicidal or homicidal ideations, intent or plan. Patient denies visual hallucinations and denies any paranoia or delusions. Patient denies any side effects from the medications and has been compliant with meds. Vital Signs Temp 97.7 F 12/02/23 06:00 Pulse 67 12/02/23 06:00 Resp 17 12/02/23 06:00 BP 87/58 12/02/23 06:00 Pulse Ox 98 12/02/23 06:00 FiO2 Mental Status Exam: Alert and attentive. Orientation times three. Somnolent Dressed and Groomed: Adequately Pleasant and cooperative. Psychomotor Activity: Normal. Speech: Normal in tone, quality, and quantity. Mood: I am feeling tired Affect: Consistent with mood. SI or HI: None. Perceptual disturbance: AH Thought Content: No paranoia. Thought Process: Normal. Cognition: Intact Judgment and Insight: Fair. Assessment Schizoaffective disorder Plan: -Patient continues to meet criteria for inpatient psychiatric admission for symptom stabilization and safety. -Medications: Prozac 40 mg daily, Zyprexa 20 mg qHS for psychosis, increase trazodone to 100 mg qHS PRN for sleep -When necessary Ativan for agitation/aggression. -NRT - [nicotine patch] -SW on board for discharge planning. Encouraged the patient to participate in milieu. Behavioral activation encouraged
[2023-12-03 14:18] LABS: Appearance,Urine Clear (Clear); Bilirubin,Urine Negative (Negative); Blood,Urine Negative (Negative); Color,Urine Light Yellow; Glucose,Urine (UA) Negative (Negative); Ketones,Urine Negative (Negative); Leukocyte Esterase,Urine Negative (Negative); Nitrite,Urine Negative (Negative); Protein,Urine Negative (Negative); Specific Gravity,Urine 1.018 (1.001-1.035); Urobilinogen,Urine <2.0 mg/dL (<2.0)
[2023-12-03 14:58] LABS: Amphetamine Screen,Urine Not Detected (NotDetected); Barbiturate Screen,Urine Not Detected (NotDetected); Benzodiazepines Screen,Urine Detected (NotDetected); Cocaine Screen,Urine Detected (NotDetected); Methadone Screen, Urine Not Detected (NotDetected); Opiate Screen,Urine Not Detected (NotDetected); Oxycodone Screen, Urine Not Detected (NotDetected); Phencyclidine Screen,Urine Not Detected (NotDetected); Tricyclic Antidepressant,Urine Not Detected (NotDetected); Urn Cannabinoid Scrn Detected (NotDetected)
[2023-12-03] MEDS: traZODone HCL 100 MG TAB PO PRN (21:15)
[2023-12-04 06:56] VITALS: BP 98/65; PULSE 68
--- NOTE | 2023-12-04 17:08 | P.DS ---
Providers Date of admission: 11/27/23 18:07 Expected date of discharge: 12/04/23 Attending physician: Kaleb Cruz MD Consults: 11/27/23 19:02 Consult Physician Routine Consulting Provider: Carlita Calderon Consult Reason/Comments: H&P and medical Do you want consulting provider notified?: Yes Primary care physician: Stated None - Discharge Diagnosis(es) (1) Schizoaffective disorder Status: Acute Priority: High (2) Substance-induced psychotic disorder Status: Acute Priority: High Hospital Course: Discharge Summary HPI: Identifying Data: Ms. Ge is 48 years old, , white female, who lives in [place], [place] Chief Complaint: I am suicidal The patient presented to the ER with complaints of depression, hearing voices and suicidal ideations. The voices are telling her to kill herself by hanging. She expressed paranoid thoughts being followed by people. The patient refused to talk, stating that she took medications and feels very tired and sleepy. The patient was encouraged to wake-up so her initial evaluation can be done, the refused. As per chart, the patient was here last month with similar complaints. She does have history of Schizophrenia and drug induced Psychosis. She admitted to using cocaine. Past Psychiatric History: The patient has been under psychiatric treatment since age 10. She has had numerous psychiatric admissions in the past. She has made multiple suicidal attempts in the past. She also has h/o of self-mutilating behavior. Leading questions: The patient admitted to Depression and Anxiety. Admitted to SI or HI. Denied symptoms consistent with psychosis Drugs and alcohol history: The patient has h/o methamphetamine, marijuana, cocaine. Tobacco use: She uses tobacco every day. Hospital Course: After admission, the patient was involved in pharmacotherapy, cardozo milieu, and individual psychodynamic psychotherapy. The patient was started on home medications Zyprexa, Trazodone and Prozac. The dose was titrated to obtain the desire effects. The patient tolerated medications well without any side effects. The patient was also involved in cardozo activities. The patient attended the groups and participated well. The patient interacted with peers and staff well. The patient slowly started showing improvement. The hospital course was uneventful. The patient symptoms of depression, suicidal and homicidal ideations abated. The psychosis improved. The patient was stable to be discharged to out- patient care. The patient did not have any guns or weapons in possession at home. MSE: Alert and inattentive. Orientation could not be tested. She dressed in hospital clothes. Disheveled. Indifferent and uncooperative. Psychomotor Activity: Reduced. Speech: low toned, normal in quality and underproductive. Mood: Depressed Affect: Consistent with mood. SI or HI: Admitted to SI and HI Perceptual disturbance: The patient reports hearing command hallucinations. Thought Content: Admitted to paranoia. No other delusional thinking noted. Thought Process: Normal. Cognition: Intact Judgment and Insight: Poor AIMS: Normal Diagnosis; Schizoaffective disorder R/O drug induced disorder psychosis Plan: The patient to be discharged today. The patient has attained good improvement since admission. He is stable to be followed as an outpatient. The patient is not suicidal or Homicidal. He does not pose any harm to self or o thers. The patient remains at a greater risk of self-harm or harm to others than general population on a chronic basis due to psychiatric illness and substance abuse. The patient will continue taking following medication post discharge. The importance of medication compliance and maintaining regular appointments at psychiatric out-pt and PCP clinic was explained and encouraged. The patient was also advised to seek alcohol counseling and attend AA/NA meetings. The understood and agreed with the recommendations. fabric worker supervisor to arrange for and conduct family meeting to ensure safety upon discharge and answer any questions. The geriatric social work professor to arrange for patients follow-up appointments at [facility] for psychiatric care along with follow-up with PCP. The patient provided psychoeducation. Advised to call 911 or go to nearest ED or call this hospital in case of acute worsening of symptomatology, severe side effects or having suicidal, homicidal thoughts and feeling unsafe at home Patient Condition at Discharge: Stable Plan - Discharge Summary Discharge Rx Participant: Yes New Discharge Prescriptions: New OLANZapine [ZyPREXA] 20 mg PO HS 15 Days #15 tab Continue Ibuprofen [Motrin] 600 mg PO Q6HR PRN tab PRN Reason: Moderate Pain (Scale 4 To 6) Gabapentin [Neurontin] 100 mg PO HS PRN 3 Days #3 cap PRN Reason: Pain Omeprazole 20 mg PO DAILY 30 Days #30 cap traZODone HCL [Desyrel] 50 mg PO HS PRN 15 Days #15 tab PRN Reason: Insomnia oxyBUTYnin chloride [Ditropan] 5 mg PO BID 15 Days #30 tab Atorvastatin [Lipitor] 20 mg PO DAILY 15 Days #15 tab FLUoxetine HCL [PROzac] 40 mg PO DAILY 15 Days #15 cap Nicotine 14Mg/24Hr Patch [Habitrol] 1 patch TRANSDERM DAILY 15 Days #15 patch Discontinued OLANZapine [ZyPREXA] 15 mg PO HS 30 Days #30 tablet Discharge Medication List Gabapentin [Neurontin] 100 mg PO HS PRN 3 Days #3 cap 11/08/23 [Rx] Ibuprofen [Motrin] 600 mg PO Q6HR PRN tab 11/08/23 [Rx] Omeprazole 20 mg PO DAILY 30 Days #30 cap 11/08/23 [Rx] Atorvastatin [Lipitor] 20 mg PO DAILY 15 Days #15 tab 12/04/23 [Rx] FLUoxetine HCL [PROzac] 40 mg PO DAILY 15 Days #15 cap 12/04/23 [Rx] Nicotine 14Mg/24Hr Patch [Habitrol] 1 patch TRANSDERM DAILY 15 Days #15 patch [Rx] OLANZapine [ZyPREXA] 20 mg PO HS 15 Days #15 tab 12/04/23 [Rx] oxyBUTYnin chloride [Ditropan] 5 mg PO BID 15 Days #30 tab 12/04/23 [Rx] traZODone HCL [Desyrel] 50 mg PO HS PRN 15 Days #15 tab 12/04/23 [Rx] Follow up Appointment(s)/Referral(s): [facility] [Outside] - 12/06/23 10:00 am (12/06/2023 10:00AM - 11:00AM NKECHI GRANT 12/13/2023 1:00PM - 1:30PM MILLY CHAPA ) [facility] [NON-STAFF] - 1 Week Activity/Diet/Wound Care/Special Instructions: Avoid the use of street drugs and alcohol. Take all medications as prescribed. When you are in need of refills on your medications, please contact your medical provider and/or outpatient psychiatrist/provider to have this done. Please go to your scheduled outpatient appointment for aftercare treatment. If symptoms return or become worse, call the crisis line at and/or go to the nearest emergency room for evaluation. National Suicide Hotline 988 Discharge Disposition: HOME SELF-CARE
== END 2023-12-04 13:55 | disposition home or self-care (01) | DRG 885 ==
LOC: EC 10:48 → 3MHU 18:07
PROVIDERS: ADMIT Psychiatry & Neurology Psychiatry; ATTEND Psychiatry & Neurology Psychiatry
DX: F25.9 Schizoaffective disorder, unspecified (principal); R45.851 Suicidal ideations; Z59.00 Homelessness unspecified; F14.959 Cocaine use, unspecified with cocaine-induced psychotic disorder, unspecified; F31.9 Bipolar disorder, unspecified; Z11.52 Encounter for screening for COVID-19; Z28.310 Unvaccinated for COVID-19; N32.81 Overactive bladder; E78.5 Hyperlipidemia, unspecified; G89.29 Other chronic pain; K21.9 Gastro-esophageal reflux disease without esophagitis; M54.9 Dorsalgia, unspecified; F17.210 Nicotine dependence, cigarettes, uncomplicated; Z71.6 Tobacco abuse counseling; Z79.899 Other long term (current) drug therapy; Z63.8 Other specified problems related to primary support group; Z59.82 Transportation insecurity; Z59.12 Inadequate housing utilities; W06.XXXD Fall from bed, subsequent encounter; Z71.51 Drug abuse counseling and surveillance of drug abuser
CPT/HCPCS: 80306; 81003; 82075; 87635; 99285

== ENCOUNTER 2023-12-14 22:24 | Inpatient (IN) | payer MEDICARE, MEDICAID ==
--- NOTE | 2023-12-14 22:53 | ED ---
General Adult HPI - General Chief complaint: Psychiatric Symptoms Stated complaint: Mental health Time Seen by Provider: 12/14/23 22:41 Source: patient, RN notes reviewed, old records reviewed Mode of arrival: ambulatory Limitations: no limitations - History of Present Illness Initial comments: Patient is a 48-year-old female who presents emergency department complaining of suicidal ideations. Keeps repeating she does not want to live anymore. Has a history of polysubstance abuse. Denies any other acute complaints. Is asking for food and water. Denies any attempts at her life but is endorsing nonspecific thoughts of going to hurt herself and end her life. Denies any homicidal ideations, times complaints. Denies any hallucinations. Presents for further evaluation at this time. Vital signs are within acceptable limits. - Related Data Home Medications Medication Instructions Recorded Confirmed Atorvastatin [Lipitor] 20 mg PO DIRECTED 12/15/23 12/15/23 FLUoxetine HCL [PROzac] 40 mg PO DIRECTED 12/15/23 12/15/23 Nicotine 14Mg/24Hr Patch [Habitrol] 1 patch TRANSDERM DIRECTED 12/15/23 12/15/23 OLANZapine [ZyPREXA] 20 mg PO DIRECTED 12/15/23 12/15/23 oxyBUTYnin chloride [Ditropan] 5 mg PO DIRECTED 12/15/23 12/15/23 traZODone HCL [Desyrel] 50 mg PO DIRECTED PRN 12/15/23 12/15/23 Previous Rx's Medication Instructions Recorded Gabapentin [Neurontin] 100 mg PO HS PRN 3 Days #3 cap 11/08/23 Ibuprofen [Motrin] 600 mg PO Q6HR PRN tab 11/08/23 Omeprazole 20 mg PO DAILY 30 Days #30 cap 11/08/23 Allergies Allergy/AdvReac Type Severity Reaction Status Date / Time No Known Allergies Allergy Verified 12/14/23 22:32 Review of Systems ROS Statement: Those systems with pertinent positive or pertinent negative responses have been documented in the HPI. Review of Systems: CONST: Denies fever EYES: Denies blurry vision ENT: Denies nasal congestion C/V: Denies Chest pain RESP: Denies shortness of breath GI: Denies abdominal pain : Denies dysuria SKIN: Denies rash. MSK: Denies joint pain. NEURO: Denies headache ROS Other: All systems not noted in ROS Statement are negative. Past Medical History Past Medical History: GERD/Reflux, Hyperlipidemia Additional Past Medical History / Comment(s): overactive bladder, chronic back pain History of Any Multi-Drug Resistant Organisms: None Reported Past Surgical History: Cholecystectomy Past Anesthesia/Blood Transfusion Reactions: No Reported Reaction Past Psychological History: Bipolar, Schizophrenia Smoking Status: Current every day smoker Past Alcohol Use History: None Reported Past Drug Use History: Cocaine, Marijuana, Methamphetamine - Past Family History Father Additional Family Medical History / Comment(s): Father in his 50s from mesothelioma. Mother Additional Family Medical History / Comment(s): Mother is alive at age 64 with history of colon cancer and diabetes. Brother(s) Family Medical History: COPD Additional Family Medical History / Comment(s): Patient has 4 brothers and one has scoliosis. She does not have contact with the others. Sister(s) Additional Family Medical History / Comment(s): She has one sister with mental health issues. Daughter(s) Additional Family Medical History / Comment(s): Patient has 2 daughters and one has uterine cancer. She does not have any sons. General Exam - General Exam Comments Initial Comments: General: Appears in no acute distress. HEAD: Normal with no signs of head trauma. EYES: EOMI. ENT: Hearing grossly intact. RESPIRATORY: No respiratory distress. C/V: Regular rate and rhythm. ABD: Abdomen is nondistended. EXT: No obvious deformity. SKIN: No rashes or lesions observed on exposed skin. NEURO: Alert and oriented. Limitations: no limitations Course Vital Signs 12/14/23 12/15/23 12/15/23 22:30 02:41 05:49 Temperature 98.4 F Pulse Rate 85 90 74 Respiratory 18 18 16 Rate Blood Pressure 149/80 117/64 O2 Sat by Pulse 98 97 94 L Oximetry 12/15/23 13:28 Temperature Pulse Rate 85 Respiratory 18 Rate Blood Pressure 111/68 O2 Sat by Pulse 96 Oximetry Medical Decision Making - Medical Decision Making Was pt. sent in by a medical professional or institution (, PA, TRACTOR ENGINE ASSEMBLER, urgent care, hospital, or halfway...) When possible be specific @ -No Did you speak to anyone other than the patient for history (EMS, parent, family, police, friend...)? What history was obtained from this source @ -No Did you review nursing and triage notes (agree or disagree)? Why? @ -I reviewed and agree with nursing and triage notes Were old charts reviewed (outside hosp., previous admission, EMS record, old EKG, old radiological studies, urgent care reports/EKG's, halfway records)? Report findings @ -Previous visits. From our emergency department, most recent being from November 27, 2023 when patient was evaluated and admitted for mental health at that time. Differential Diagnosis (chest pain, altered mental status, abdominal pain women, abdominal pain men, vaginal bleeding, weakness, fever, dyspnea, syncope, headache, dizziness, GI bleed, back pain, seizure, CVA, palpatations, mental health, musculoskeletal)? @ -Differential Mental Health Depression, anxiety, bipolar, psychosis, schizophrenia, borderline personality, situational depression, adjustment disorder, behavioral disorder, brain tumor, malingering, substance abuse, encephalopathy, medication reaction, dementia, hypothyroidism, degenerative neurologic disorder, lupus.... This is not meant to be all-inclusive list EKG interpreted by me (3pts min.). @ -None done X-rays interpreted by me (1pt min.). @ -None done CT interpreted by me (1pt min.). @ -None done U/S interpreted by me (1pt. min.). @ -None done What testing was considered but not performed or refused? (CT, X-rays, U/S, labs)? Why? @ -None What meds were considered but not given or refused? Why? @ -None Did you discuss the management of the patient with other professionals (professionals i.e. , PA, TRACTOR ENGINE ASSEMBLER, lab, RT, psych nurse, social psychologist, interventional pain physician, teacher, strategic debriefing officer, housing case manager)? Give summary @ -EPS notified of the consult Was smoking cessation discussed for >3mins.? @ -No Was critical care preformed (if so, how long)? @ -No Were there social determinants of health that impacted care today? How? (Homelessness, low income, unemployed, alcoholism, drug addiction, transportation, low edu. Level, literacy, decrease access to med. care, group home, rehab)? @ -No Was there de-escalation of care discussed even if they declined (Discuss DNR or withdrawal of care, Hospice)? DNR status @ -No What co-morbidities impacted this encounter? (DM, HTN, Smoking, COPD, CAD, Cancer, CVA, ARF, Chemo, Hep., AIDS, mental health diagnosis, sleep apnea, morbid obesity)? @ -substance abuse Was patient admitted / discharged? Hospital course, mention meds given and route, prescriptions, significant lab abnormalities, going to OR and other pertinent info. @ -Patient presents complaining of suicidal ideations. They have been ongoing for a few days. Worse than baseline. Otherwise is acting within normal limits. She is asking for food and water. Sitter and suicide precautions ordered. BAT is 0. UDS is pending. Vital signs within acceptable limits. At this time, patient is medically cleared for evaluation by psychiatry. Disposition pending psychiatric evaluation, EPS notified of the consult.Patient eventually evaluated by EPS. Patient does meet inpatient criteria. Patient admitted in stable condition. Undiagnosed new problem with uncertain prognosis? @ -No Drug Therapy requiring intensive monitoring for toxicity (Heparin, Nitro, Insulin, Cardizem)? @ -No Were any procedures done? @ -No Diagnosis/symptom? @ -Suicidal ideation, acute psychosis Acute, or Chronic, or Acute on Chronic? @ -Acute Uncomplicated (without systemic symptoms) or Complicated (systemic symptoms)? @ -Complicated Side effects of treatment? @ -None Exacerbation, Progression, or Severe Exacerbation] @ -No Poses a threat to life or bodily function? @ -Yes - Lab Data Result diagrams: 12/16/23 08:44 12/16/23 08:44 Lab Results 12/15/23 12/15/23 Range/Units 11:15 11:15 Urine Opiates Screen Not Detected (NotDetected) Ur Oxycodone Screen Not Detected (NotDetected) Urine Methadone Screen Not Detected (NotDetected) Ur Barbiturates Screen Not Detected (NotDetected) U Tricyclic Antidepress Not Detected (NotDetected) Ur Phencyclidine Scrn Not Detected (NotDetected) Ur Amphetamines Screen Detected H (NotDetected) U Methamphetamines Scrn Detected H (NotDetected) U Benzodiazepines Scrn Detected H (NotDetected) Urine Cocaine Screen Detected H (NotDetected) U Marijuana (THC) Screen Detected H (NotDetected) Influenza Type A (PCR) Not Detected (Not Detectd) Influenza Type B (PCR) Not Detected (Not Detectd) RSV (PCR) Not Detected (Not Detectd) SARS-CoV-2 (PCR) Not Detected (Not Detectd) Disposition Clinical Impression: Suicidal ideation, Acute psychosis Disposition: TRANSFER TO PSYCH HOSP/UNIT Condition: Stable
[2023-12-14] MEDS: LORazepam 1 MG TAB PO STA (23:03)
[2023-12-15 13:16] LABS: Amphetamine Screen,Urine Detected (NotDetected); Barbiturate Screen,Urine Not Detected (NotDetected); Benzodiazepines Screen,Urine Detected (NotDetected); Cocaine Screen,Urine Detected (NotDetected); Methadone Screen, Urine Not Detected (NotDetected); Opiate Screen,Urine Not Detected (NotDetected); Oxycodone Screen, Urine Not Detected (NotDetected); Phencyclidine Screen,Urine Not Detected (NotDetected); Tricyclic Antidepressant,Urine Not Detected (NotDetected); Urn Cannabinoid Scrn Detected (NotDetected)
[2023-12-15] MEDS ORDERED: HALOPERIDOL LACTATE 5 MG/ML 1 ML VIAL IM PRN (13:24)
[2023-12-15] MEDS ORDERED: MAG HYDROX/AL HYDROX/SIMETH 355 ML BOTTLE PO PRN (13:24)
[2023-12-15] MEDS ORDERED: MAGNESIUM HYDROXIDE 2,400 MG/30 ML CUP PO PRN (13:24)
[2023-12-15] MEDS ORDERED: LORazepam 2 MG/ML INJ IM PRN (13:24)
[2023-12-15] MEDS: IBUPROFEN 600 MG TAB PO PRN (14:23)
[2023-12-15] MEDS: haloperidoL 5 MG TAB PO PRN (14:24)
[2023-12-15] MEDS: LORazepam 1 MG TAB PO PRN (14:24)
[2023-12-15 14:54] LABS: Appearance,Urine Turbid (Clear); Bacteria,Urine Occasional /hpf; Bilirubin,Urine Negative (Negative); Blood,Urine Negative (Negative); Budding Yeast,Urine Occasional /hpf; Color,Urine Yellow; Glucose,Urine (UA) Negative (Negative); Ketones,Urine Negative (Negative); Leukocyte Esterase,Urine Moderate (Negative); Mucus,Urine Many /hpf; Nitrite,Urine Negative (Negative); Protein,Urine 1+ (Negative); RBC,Urine 10 /hpf (0-5); Specific Gravity,Urine 1.029 (1.001-1.035); Squamous Epithelial Cell,Urine 21 /hpf (0-4); WBC,Urine 19 /hpf (0-5)
[2023-12-15] MEDS: OLANZapine 10 MG TAB PO SCH (22:50)
[2023-12-15] MEDS: NICOTINE 14MG/24HR PATCH TRANSDERM SCH (22:50)
--- NOTE | 2023-12-16 04:16 | P.PN ---
Progress Note - Text Progress Note Date: 12/16/23 Attempted to see the patient in the mental health unit. The patient refused to be seen or be evaluated.
[2023-12-16] MEDS: ACETAMINOPHEN TAB 325 MG TAB PO PRN (07:20)
[2023-12-16 09:41] LABS: ALT 12 U/L (4-34); AST 17 U/L (14-36); African American GFR (CKD) >90 (>60 ml/min/1.73 sqM); Albumin 3.4 g/dL (3.5-5.0); Alkaline Phosphatase 63 U/L (38-126); Anion Gap 3 mmol/L; Blood Urea Nitrogen 10 mg/dL (7-17); Calcium 9.2 mg/dL (8.4-10.2); Carbon Dioxide 29 mmol/L (22-30); Chloride 109 mmol/L (98-107); Glucose 79 mg/dL (74-99); Non-African American GFR(CKD) >90 (>60 ml/min/1.73 sqM); Potassium 3.9 mmol/L (3.5-5.1); Sodium 141 mmol/L (137-145); Total Bilirubin 0.5 mg/dL (0.2-1.3)
[2023-12-16 10:15] LABS: HCT 46.1 % (34.0-46.0); HGB 13.4 gm/dL (11.4-16.0); MCH 27.3 pg (25.0-35.0); Mean Platelet Volume 7.8; RDW 14.8 % (11.5-15.5); WBC 6.8 k/uL (3.8-10.6)
[2023-12-16] MEDS: FLUoxetine HCL 20 MG CAP PO SCH (10:45)
[2023-12-16] MEDS: oxyBUTYnin chloride 5 MG TAB PO SCH (10:46)
[2023-12-16] MEDS: ATORVASTATIN 20 MG TAB PO SCH (10:46)
[2023-12-16] MEDS: PANTOPRAZOLE 40 MG TABLET PO SCH (10:46)
[2023-12-16 10:50] LABS: Basophils # (M) 0.07 k/uL (0-0.2); Eosinophils # (M) 0.34 k/uL (0-0.7); Lymphocytes # (M) 2.86 k/uL (1.0-4.8); Neutrophils # (M) 3.33 k/uL (1.3-7.7); Neutrophils % (M) 49 %; Nucleated Red Blood Cells 0 /100 WBC (0-0); Total Cells Counted 100
[2023-12-16 12:48] LABS: Chol/HDL Ratio 3.32 Ratio; LDL Cholesterol,Calculated 60.2 mg/dL (0.0-131.0)
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
[2023-12-16] MEDS: traZODone HCL 50 MG TAB PO PRN (22:54)
[2023-12-16] MEDS: GABAPENTIN 100 MG CAP PO PRN (22:55)
--- NOTE | 2023-12-17 21:48 | P.PN ---
Progress Note - Text Progress Note Date: 12/17/23 Interval history: Patient was seen isolating to her room, laying in bed in the dark. She is minimally engaged in assessment again today, other than to say she is still feeling "suicidal, homicidal" and hearing voices. Patient denies any side effects from the medications and has been compliant with meds. Mental status exam: General Appearance: Patient appears to be older than stated age, poor dentition, obese, disheveled, poor hygiene/grooming. Behavior: Patient is laying in bed, poor effort during assessment Speech: Patient's speech is fluent and non-pressured Mood/Affect: Patient reports their mood is depressed, affect is congruent and constricted. Suicidality/Homicidality: Endorses vague "suicidal and homicidal" ideations, does not elaborate on plan or intent or target. Perceptions: Patient denies any visual hallucinations and reports vague auditory hallucinations. Though content/process: There is no evidence of any delusional thought content and thought process is ruminative. Memory and concentration: AOX3, grossly intact for the purposes of this session. Judgment and insight: poor Assessment/Plan: Continue with current diagnosis. Patient continues to meet criteria for inpatient psychiatric admission for symptom stabilization and safety. Patient will be maintained on current psychotropic medication regimen. Monitor for medication compliance and for any psychotropic medication side effects. Will continue to monitor ongoing response to treatment. Encouraged participation in milieu.
--- NOTE | 2023-12-18 20:44 | P.PN ---
Progress Note - Text Progress Note Date: 12/18/23 Interval history: Patient was seen isolating to her room again today, laying in bed in the dark. She is up for meals and returns to bed, does not attend groups. She is minimally engaged in assessment again today, other than to say she is still feeling "like crap", having suicidal ideations to hang herself, and hearing voices. She denies homicidal ideations. Patient denies any side effects from the medications and has been compliant with meds. Mental status exam: General Appearance: Patient appears to be older than stated age, poor dentition, obese, disheveled, poor hygiene/grooming. Behavior: Patient is laying in bed, poor effort during assessment Speech: Patient's speech is fluent and non-pressured Mood/Affect: Patient reports their mood is depressed, affect is congruent and constricted. Suicidality/Homicidality: Endorses suicidal ideations with plan to hang self, denies homicidal ideations. Perceptions: Patient denies any visual hallucinations, and reports vague auditory hallucinations. Though content/process: There is no evidence of any delusional thought content and thought process is ruminative. Memory and concentration: AOX3, grossly intact for the purposes of this session. Judgment and insight: poor Assessment/Plan: Continue with current diagnosis. Patient continues to meet criteria for inpatient psychiatric admission for symptom stabilization and safety. Patient will be maintained on current psychotropic medication regimen. Monitor for medication compliance and for any psychotropic medication side effects. Will continue to monitor ongoing response to treatment. Encouraged participation in milieu.
--- NOTE | 2023-12-19 12:51 | P.PN ---
Progress Note - Text Progress Note Date: 12/19/23 Interval History: Patient was seen while lying in bed and was directable and agreeable to speak with curriculum writer. She reports having been up this morning for breakfast but decided to return to bed to rest. She describes her mood as "I am doing". She continues to have thoughts about suicide and at times thoughts of choking herself with a blanket, though no intent or plan to act on these thoughts at present. She denies homicidal ideation intent and plan. She reports having "had a whole conversation this morning with no one". She found this distressing and endorses having intrusive thoughts that she "ain't no good" and at times hears voices that she is "just a waste". She notes that these voices tend to occur when she feels most depressed and presently rates the intensity of her symptoms as 7 out of 10 with 10 being the most intense she feels that her medications have not had enough time to be effective she did not have any further concerns or thoughts to share. Patient denies any side effects from the medications and has been compliant with meds. Mental Status Exam: General Appearance: Patient appears to be older than stated age is sleepy, directable, and cooperative. Grooming is poor. Behavior: Patient is calmly lying down without any agitated behavior. Speech: Patient's speech is fluent and nonpressured. Rhythm, tone, and volume are normal. Mood/Affect: Mood is "I'm doing", affect is congruent and constricted. Suicidality/Homicidality: Patient denies having homicidal ideation intent or plan. She does endorse suicidal ideation with identified method, denies intent or plan. Perceptions: Patient denies any visual hallucinations. She experiences auditory hallucinations that are ego dystonic, stating "ain't no good" and "just a waste." Though content/process: There is no evidence of any delusional thought content and thought process is linear and goal-directed. Memory and concentration: Grossly intact for the purposes of this session Judgment and insight: Poor Assessment Willy Ge is a 48 year old woman with a history of schizoaffective disorder, depressed type, tobacco use disorder, cocaine use disorder, cannabis use disorder, and methamphetamine use disorder. She continues to endorse depressive symptoms and intermittent suicidal ideation. She was recently restarted on her home medications, currently awaiting assessment of efficacy/response. Plan: -Patient continues to meet criteria for inpatient psychiatric admission for symptom stabilization and safety. Patient has signed adult voluntary form and medication consent and was placed in patient's chart. -Medications: - Continue Trazodone 50 mg at bedtime PRN insomnia - Continue Fluoxetine 40 mg daily - Continue Olanzapine 20 mg at bedtime - Continue Gabapentin 100 mg PRN - Patient would likely benefit from STI testing if she's agreeable; will seek to establish rapport and discuss with her -When necessary Ativan and Haldol for agitation/aggression. -NRT - available if needed -SW on board for discharge planning. Encouraged the patient to participate in milieu. Patient will be engaging with the ACT Team on an outpatient basis.
--- NOTE | 2023-12-20 14:39 | P.PN ---
Progress Note - Text Progress Note Date: 12/20/23 Interval History: Patient was seen in her room as she was napping throughout the morning. Asked how she is doing she reports "seeing a lot of blood. "I clarified whether she meant blood on her body and she shared that the blood was on the "wall" and "people ". She intermittently dozed off during our conversation but clarified that these images have been coming to her while she has been in her room. She denies experiencing any other visual hallucinations. She does report having periodic nightmares. She endorses having auditory hallucinations that tell her she is "no good" and "needs to be locked up ". She denies experiencing suicidal ideation today and also denies suicidal intent or plan. She also denies homicidal ideation, intent, or plan. She feels the medications are starting to be helpful. Patient denies any side effects from the medications and has been compliant with meds. Mental Status Exam: General Appearance: Patient appears to be older than stated age is drowsy but cooperative. Behavior: Patient is calmly lying down without any agitated behavior. Speech: Patient's speech is fluent and nonpressured though articulation is poor and volume is low. Mood/Affect: Mood is improving mildly, affect is congruent and constricted. Suicidality/Homicidality: Patient denies having any suicidal or homicidal ideation intent or plan. Perceptions: Patient endorses auditory hallucinations that tell her she is "no good "" needs to be locked up "and visual hallucinations of "blood" on the carranza in her room Though content/process: Thought process is relatively linear and goal-directed. Memory and concentration: Grossly intact for the purposes of this session Judgment and insight: Questionable Assessment Willy Ge is a 48 year old woman with a history of schizoaffective disorder, depressed type, tobacco use disorder, cocaine use disorder, cannabis use disorder, and methamphetamine use disorder. She continues to endorse depressive symptoms and intermittent suicidal ideation. She does feel the restart of her home medication has been gradually helpful in addressing her mood. She was very drowsy today; will reassess tomorrow when she is hopefully more alert. Plan: -Patient continues to meet criteria for inpatient psychiatric admission for symptom stabilization and safety. Patient has signed adult voluntary form and medication consent and was placed in patient's chart. -Medications: - Continue Trazodone 50 mg at bedtime PRN insomnia - Continue Fluoxetine 40 mg daily - Continue Olanzapine 20 mg at bedtime - Continue Gabapentin 100 mg PRN - Patient would likely benefit from STI testing if she's agreeable given admission history of increased sexual activity; will seek to establish rapport and discuss with her -When necessary Ativan and Haldol for agitation/aggression. -NRT - available if needed -SW on board for discharge planning. Encouraged the patient to participate in milieu. Patient will be engaging with the ACT Team on an outpatient basis.
--- NOTE | 2023-12-21 10:59 | P.PN ---
Progress Note - Text Progress Note Date: 12/21/23 Interval History: Patient was seen while lying in bed and was agreeable to conversation. She de scribed having had an "all right" night last night and is feeling "okay" today. When asked about the as needed for anxiety that she has needed for the last 2 nights she shared that there are "too many people" and this becomes difficult for her to handle at night. Clarified with her that she feels there are a lot of patients and activity happening on the unit in the evenings which tends to make her feel anxious. She feels her medication regimen is "okay" and has not required previously higher doses of fluoxetine to experience mood improvement and symptom control. She endorses ongoing suicidal ideation with identified method of hanging herself she denies intent or plan on acting on these thoughts. She denies homicidal ideation. She continues to experience auditory hallucinations that tell her to "kill myself" and she also has visual hallucinations/delusions of "blood" on the carranza at times. Patient denies any side effects from the medications and has been compliant with meds. Mental Status Exam: General Appearance: Patient appears to be older than stated age is drowsy again today but cooperative. Behavior: Patient is calmly lying down without any agitated behavior. Speech: Patient's speech is fluent and nonpressured though articulation is poor and volume is low. Mood/Affect: Mood is improving mildly, described as "okay" today, affect is congruent and constricted. Suicidality/Homicidality: Patient endorses suicidal ideation and identified method. She denies suicidal intent or plan. She denies homicidal ideation intent or plan. Perceptions: Patient endorses auditory hallucinations that tell her "kill myself" and visual hallucinations/illusions of "blood" on the carranza in her room Though content/process: Thought process is relatively linear and goal-directed. Brief responses, not elaborative. Memory and concentration: Grossly intact for the purposes of this session Judgment and insight: Questionable Assessment Willy Ge is a 48 year old woman with a history of schizoaffective disorder, depressed type, tobacco use disorder, cocaine use disorder, cannabis use disorder, and methamphetamine use disorder. While she feels that her medication regimen is helpful in general she continues to note feeling depressed mood and intermittent suicidal ideation. She continues to sleep much of the day and was encouraged to participate in groups and try to engage in therapy. Plan: -Patient continues to meet criteria for inpatient psychiatric admission for symptom stabilization and safety. Patient has signed adult voluntary form and medication consent and was placed in patient's chart. -Medications: - Continue Trazodone 50 mg at bedtime PRN insomnia - Continue Fluoxetine 40 mg daily - Continue Olanzapine 20 mg at bedtime - Continue Gabapentin 100 mg PRN - Patient would likely benefit from STI testing if she's agreeable given admission history of increased sexual activity; will seek to establish rapport and discuss with her -When necessary Ativan and Haldol for agitation/aggression. -NRT - available if needed -SW on board for discharge planning. Encouraged the patient to participate in milieu. Patient will be engaging with the ACT Team on an outpatient basis.
--- NOTE | 2023-12-22 12:07 | P.PN ---
Progress Note - Text Progress Note Date: 12/22/23 Interval History: Patient was seen while lying in bed and was agreeable to speak with this television writer in the office. She states that she is doing a bit better today, and that she can think more clearly today. She states that she is sleeping ok, however, she is having a problem with restless legs at night. Electric Power Line Examiner spoke with patient about calling for screening for rehab, patient stated that she did, but she does not know what they said. She denies suicidal ideation today. She denies homicidal ideation. she is denying any AH or VH. Patient denies any side effects from the medications and has been compliant with meds. she states that she did the screening for rehab and also states that she is able to go to her mothers [facility] upon discharge. Mental Status Exam: General Appearance: Patient appears to be older than stated age is cooperative. Behavior: Patient is calmly lying down without any agitated behavior. Speech: Patient's speech is fluent and nonpressured though articulation is poor and volume is low. Mood/Affect: Mood is improving mildly, described as "ok" today, affect is alirio ruent and constricted. Suicidality/Homicidality: Patient deneis suicidal ideation She denies suicidal intent or plan. She denies homicidal ideation intent or plan. Perceptions: Patient denies auditory hallucinations and visual hallucinations Though content/process: Thought process is relatively linear and goal-directed. Brief responses, not elaborative. Memory and concentration: Grossly intact for the purposes of this session Judgment and insight: limited Assessment schizoaffective disorder, depressed type, tobacco use disorder, cocaine use disorder, cannabis use disorder, and methamphetamine use disorder. Plan: -Patient continues to meet criteria for inpatient psychiatric admission for symptom stabilization and safety. Patient has signed adult voluntary form and medication consent and was placed in patient's chart. -Medications: -Add Requip 0.25 mg qhs for RLS -Add Benedryl 50mg qhs prn for sleep - Discontinue Trazodone - Continue Fluoxetine 40 mg daily - Continue Olanzapine 20 mg at bedtime - Continue Gabapentin 100 mg PRN -When necessary Ativan and Haldol for agitation/aggression. -NRT - available if needed -SW on board for discharge planning. Encouraged the patient to participate in milieu. Patient will be engaging with the ACT Team on an outpatient basis. likely discharge monday to her mothers house.
--- NOTE | 2023-12-23 10:41 | P.PN ---
Subjective Progress Note Date: 12/23/23 Patient Name: Willy Ge Date of : 73 Patient Status: Inpatient Attending Provider: Michael Plasencia Date: 12/23/23 Initialization Date: 12/22/23 08:43 Subjective data: Patient was seen while lying in bed and was agreeable to speak with this mortgage loan underwriter She states that she is doing a bit better today, Patient reports that she has been here for depression and making a suicide attempt She states that she is currently homeless but that she is able to go to her mother She states that she was using crack cocaine last use being few days before she came into the hospital She states that she is sleeping ok, however, She denies suicidal ideation today. She denies homicidal ideation. she is denying any AH or VH. Patient denies any side effects from the medications and has been compliant with meds. she states that she did the screening for rehab and also states that she is able to go to her mothers house upon discharge. Mental Status Exam: General Appearance: Patient appears to be older than stated age is cooperative. Behavior: Patient is calmly lying down without any agitated behavior. Speech: Patient's speech is fluent and nonpressured though articulation is poor and volume is low. Mood/Affect: Mood is improving mildly, described as "ok" today, affect is congruent and constricted. Suicidality/Homicidality: Patient deneis suicidal ideation She denies suicidal intent or plan. She denies homicidal ideation intent or plan. Perceptions: Patient denies auditory hallucinations and visual hallucinations Though content/process: Thought process is relatively linear and goal-directed. Brief responses, Memory and concentration: Grossly intact for the purposes of this session Judgment and insight: limited Assessment schizoaffective disorder, depressed type, tobacco use disorder, cocaine use disorder, cannabis use disorder, and methamphetamine use disorder. Plan: Agree with the current treatment plan -Patient continues to meet criteria for inpatient psychiatric admission for symptom stabilization and safety. Patient has signed adult voluntary form and medication consent and was placed in patient's chart. -Medications: - Requip 0.25 mg qhs for RLS Benedryl 50mg qhs prn for sleep - Trazodone has been discontinued - Continue Fluoxetine 40 mg daily - Continue Olanzapine 20 mg at bedtime - Continue Gabapentin 100 mg PRN -When necessary Ativan and Haldol for agitation/aggression. -NRT - available if needed -SW on board for discharge planning. Encouraged the patient to participate in milieu. Patient will be engaging with the ACT Team on an outpatient basis. likely discharge monday to her [facility] house. Rodney Sandoval MD Objective - Vital Signs Vital signs: Vital Signs Temp 97.6 F 12/23/23 06:00 Pulse 63 12/23/23 06:00 Resp 20 12/23/23 06:00 BP 109/73 12/23/23 06:00 Pulse Ox 96 12/23/23 06:00 FiO2 - Labs CBC & Chem 7: 12/16/23 08:44 12/16/23 08:44
[2023-12-24] MEDS: diphenhydrAMINE 50 MG CAP PO PRN (03:12)
--- NOTE | 2023-12-24 09:01 | P.PN ---
Subjective Progress Note Date: 12/24/23 Patient Name: Willy Ge Date of : 73 Patient Status: Inpatient Attending Provider: Michael Plasencia Date: 12/24/23 Initialization Date: 12/22/23 08:43 Subjective data: Patient was seen chart was reviewed and case discussed with nursing staff Patient was just waking up and at this time give superficial answers She denies that she is having any problems with depression or anxiety She states that she is sleeping ok, however, She denies suicidal ideation today. She denies homicidal ideation. she is denying any AH or VH. Patient denies any side effects from the medications and has been compliant with meds. Patient reports that she has been here for depression and making a suicide attempt She states that she is currently homeless but that she is able to go to her mother Patient was previously admitted that that she was using crack cocaine last use being few days before she came into the hospital Mental Status Exam: General Appearance: Patient appears to be older than stated age is cooperative. Behavior: Patient is calmly lying down without any agitated behavior. Speech: Patient's speech is fluent and nonpressured though articulation is poor and volume is low. Mood/Affect: Mood is improving mildly, described as "ok" today, affect is congruent and constricted. Suicidality/Homicidality: Patient deneis suicidal ideation She denies suicidal intent or plan. She denies homicidal ideation intent or plan. Perceptions: Patient denies auditory hallucinations and visual hallucinations Though content/process: Thought process is relatively linear and goal-directed. Brief responses, Memory and concentration: Grossly intact for the purposes of this session Judgment and insight: limited Assessment schizoaffective disorder, depressed type, tobacco use disorder, cocaine use disorder, cannabis use disorder, and methamphetamine use disorder. Plan: Agree with the current treatment plan -Patient continues to meet criteria for inpatient psychiatric admission for symptom stabilization and safety. Patient has signed adult voluntary form and medication consent and was placed in patient's chart. -Medications: - Requip 0.25 mg qhs for RLS Benedryl 50mg qhs prn for sleep - Trazodone has been discontinued - Continue Fluoxetine 40 mg daily - Continue Olanzapine 20 mg at bedtime - Continue Gabapentin 100 mg PRN -When necessary Ativan and Haldol for agitation/aggression. -NRT - available if needed -SW on board for discharge planning. Encouraged the patient to participate in milieu. Patient will be engaging with the ACT Team on an outpatient basis. likely discharge monday to her mothers house. she states that she did the screening for rehab and also states that she is able to go to her mothers house upon discharge. Rodney Sandoval MD Objective - Vital Signs Vital signs: Vital Signs Temp 97.6 F 12/23/23 06:00 Pulse 63 12/23/23 06:00 Resp 20 12/23/23 06:00 BP 109/73 12/23/23 06:00 Pulse Ox 96 12/23/23 06:00 FiO2 - Labs CBC & Chem 7: 12/16/23 08:44 12/16/23 08:44
--- NOTE | 2023-12-25 12:37 | P.PN ---
Progress Note - Text Progress Note Date: 12/25/23 Interval History: Patient was seen while lying in bed and was agreeable to speak with this flex o writer operator. She states that she is doing a bit better today. She states that she did not have any issues over the weekend. Did claim that last night she was feeling a bit more restless and asked for an increase in her Requip. She claims that she may have 2 options for discharge either to go to her mother's house or a friend's house locally. Claims that most likely she will stay locally. Claims that her mood and anxiety have been mildly improving since yesterday. She has been going to some groups. Appetite is fair. She denies suicidal ideation today. She denies homicidal ideation. she is denying any AH or VH. Patient denies any side effects from the medications and has been compliant with meds. she states that she did the screening for rehab and also states that she is able to go to her mothers house upon discharge. Mental Status Exam: General Appearance: Patient appears to be older than stated age is cooperative. Behavior: Patient is calmly lying down without any agitated behavior. C ooperative today Speech: Patient's speech is fluent and nonpressured though articulation is poor and volume is low. Mood/Affect: Mood is improving mildly, described as "better" today, affect is congruent Suicidality/Homicidality: Patient deneis suicidal ideation She denies suicidal intent or plan. She denies homicidal ideation intent or plan. Perceptions: Patient denies auditory hallucinations and visual hallucinations Though content/process: Thought process is relatively linear and goal-directed. Brief responses, not elaborative. Memory and concentration: Grossly intact for the purposes of this session Judgment and insight: Improving mildly Assessment schizoaffective disorder, depressed type, nicotine use disorder, cocaine use disorder, cannabis use disorder, and methamphetamine use disorder Plan: -Patient continues to meet criteria for inpatient psychiatric admission for symptom stabilization and safety. Patient has signed adult voluntary form and medication consent and was placed in patient's chart. -Medications: -Increase Requip 0.5 mg qhs for RLS -Continue Benedryl 50mg qhs prn for sleep - Continue Fluoxetine 40 mg daily - Continue Olanzapine 20 mg at bedtime - Continue Gabapentin 100 mg PRN -When necessary Ativan and Haldol for agitation/aggression. -NRT - available if needed -SW on board for discharge planning. Encouraged the patient to participate in milieu. Patient will be engaging with the ACT Team on an outpatient basis. likely discharge Tomorrow to her friends house.
[2023-12-26 08:41] VITALS: BP 98/66; PULSE 104; RESP 17; TEMP 97.4
--- NOTE | 2023-12-26 10:57 | P.DS ---
Providers Date of admission: 12/15/23 13:04 Expected date of discharge: 12/26/23 Attending physician: Michael Plasencia MD Consults: 12/15/23 13:24 Consult Physician Routine Consulting Provider: Carlita Physician Consult Reason/Comments: history and physical/medical management Do you want consulting provider notified?: Yes Primary care physician: Stated None - Discharge Diagnosis(es) (1) Schizoaffective disorder Current Visit: No Status: Acute Priority: High (2) Cannabis use disorder Current Visit: No Status: Acute Priority: Medium (3) Cocaine use disorder Current Visit: No Status: Acute Priority: Medium (4) Methamphetamine abuse Current Visit: No Status: Acute Priority: High (5) Nicotine dependence Current Visit: No Status: Chronic Priority: Medium Hospital Course: Admission HPI: Admission note was completed by Dr Abarca "Patient presented to the hospital on 12/14/23 complaining of suicidal ideations, stating she did not want to live anymore.Per EPS assessment: "EPS: Clinician met with Willy in ER 13 to eval.Cl lying in bed, woken, A/O x2 presenting with SI w plan to hang self due to visual tere "seeing blood everywhere." and paranoia. Cl states " I just want to , you don't understand." Cl admits to using crack cocaine this week $300-$400 worth, unemployed, on SSI, and homeless. Clinician asked how cl was affording the dollar amounts of crack, cl responded "[employer]". 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 Cl reports paranoid thoughts of being followed by unnamed people, negative thoughts daily. Sig hx of in pat visits and addiction. Cl often answering questions with " I don't know" when redirected able to answer. Judgement/insight/impulse control : poor ADLS: poor Sleep/Demetrio: poor Medical issues: none reported Medications: Cl reports not being aware of what medications they are supposed to be taking from previous in pat visit of 12/04/23. Hx of MH tx: Cl reports being open w [facility], but has not met with a psychiatrist since last Med Review: 07/2023 : Dr. Saeed. Hx of in pat: 10+x's Last: 11/2023 [facility]. Hx of ILIANA: Cl has sig hx of substance use w Cocaine, THC, Methamphetamines. Hx of in pat rehab: None reported. Fam hx: Maternal: mental health. Paternal: unknown. Hx of trauma: phys,mental, emo, verb abuse: since childhood.Hx of legal: none current. Denies HI."On my assessment, patient is found isolating to her bed, declines to get up and come to the psychiatrist office for an evaluation. She reports depressed mood, states she still wants to hang herself. Patient gives conflicting responses on whether she has been compliant with her outpatient medications. She was recently admitted to [facility] from 11/26-12/04/23 and was discharged on Prozac 40 mg daily, Zyprexa 20 mg QHS, Trazodone 50 mg QHS PRN and Gabapentin 100 mg QHS PRN. She is denying HI/AVH at time of assessment. 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 UDS on arrival is positive for amphetamines, benzodiazepines, cocaine, THC. " Hospital course: Upon admission to the unit patient was directable and agreeable to commence treatment and signed adult voluntary form. Patient got along well with other patients on the unit and followed unit protocol. Patient was compliant with the medications and denied any side effects throughout hospital course. Patient was started on requip 0.5 mg qhs for RLS, Benadryl 50 mg nightly as needed for sleep, Prozac 40 mg daily for mood/anxiety, olanzapine 20 mg nightly for mood stabilization/insomnia, gabapentin 100 mg nightly as needed for pain. Patient spoke of her stressors and engaged in therapy both group and individual. Patient was also seen by medical team for history and physical exam. Throughout the course of the hospitalization patient gradually improved with regards to mood, anxiety, mood lability, psychosis, sleep and returned back to their baseline level of functioning. On the day of discharge patient denied any suicidal or homicidal ideations intent or plan denied any auditory or visual hallucinations. Patient endorsed wanting to live for her health and her future. The patient denied any access to guns or weapons. Patient denied any paranoia and did not endorse any delusions. Patient does have a significant history of substance abuse and was counseled on abstaining from all substances including alcohol and marijuana. Patient did the screening for rehab, still awaiting jonna harper for inpatient rehab approval. Patient elected to do outpatient substance use treatment program through [facility]. Patient was also counseled on the medications and need for regular compliance and was encouraged to follow-up with their outpatient appointment for mental health and also for primary care. Patient will be discharged to her friend's house and awaiting inpatient rehab. She is currently being followed by the ACT team. Mental status exam: General Appearance: Patient appears to be mildly overweight, stated age is alert, pleasant, and cooperative. Patient is in no acute distress and has improved hygiene and grooming Behavior: Patient is calmly seated without any agitated behavior. Speech: Patient's speech is fluent and nonpressured. Mood/Affect: Patient reports their mood is "better", affect is congruent and euthymic. Suicidality/Homicidality: Patient denies having any suicidal or homicidal ideation intent or plan. Perceptions: Patient denies any auditory or visual hallucinations. Though content/process: There is no evidence of any delusional thought content and thought process is linear and goal-directed. More future oriented Memory and concentration: AOX3, grossly intact for the purposes of this session. Can spell "WORLD" backwards correctly. Judgment and insight: Chronically poor, however has improved with guarded prognosis Impression: schizoaffective disorder nicotine use disorder cocaine use disorder cannabis use disorder methamphetamine use disorder Plan: -Continue with discharge today as patient has improved and stabilized psychiatrically and is not currently an imminent threat to herself and/or others. Patient will remain at chronically elevated risk for harm to self and/or others due to her impulsivity and polysubstance abuse. -Continue medications: Requip 0.5 mg nightly for restless leg symptoms, Benadryl 50 mg nightly as needed for sleep, Prozac 40 mg daily for mood/anxiety, Zyprexa 20 mg nightly for mood stabilization/psychosis/insomnia, gabapentin 100 mg nightly as needed for pain -Patient was counseled on the need for medication compliance and appropriate follow-up at mental health and also primary care for medical issues. Patient verbalized understanding and agreed. -Social work to help coordinate patient's discharge today to her friend's house. Social work also to arrange for patients follow up appointments with [facility] for psychiatric care along with follow up with primary care provider. -Patient counseled on abstaining from recreational drugs and marijuana and alcohol. Was informed/educated on the adverse effects on their physical and mental health. Patient verbally agreed and understood. Patient is still awaiting inpatient rehab intake date. -Patient was instructed to return to the hospital or seek immediate medical care if their psychiatric or medical symptoms do worsen or reoccur. Allergies Allergy/AdvReac Type Severity Reaction Status Date / Time No Known Allergies Allergy Verified 12/14/23 22:32 Laboratory Results WBC 6.8 k/uL (3.8-10.6) 12/16/23 08:44 RBC 4.90 m/uL (3.80-5.40) 12/16/23 08:44 Hgb 13.4 gm/dL (11.4-16.0) 12/16/23 08:44 Hct 46.1 % (34.0-46.0) H 12/16/23 08:44 MCV 94.0 fL (80.0-100.0) 12/16/23 08:44 MCH 27.3 pg (25.0-35.0) 12/16/23 08:44 MCHC 29.0 g/dL (31.0-37.0) L 12/16/23 08:44 RDW 14.8 % (11.5-15.5) 12/16/23 08:44 Plt Count k/uL (150-450) 12/16/23 08:44 MPV 7.8 12/16/23 08:44 Neutrophils % (Manual) 49 % 12/16/23 08:44 Lymphocytes % (Manual) 42 % 12/16/23 08:44 Monocytes % (Manual) 3 % 12/16/23 08:44 Eosinophils % (Manual) 5 % 12/16/23 08:44 Basophils % (Manual) 1 % 12/16/23 08:44 Neutrophils # (Manual) 3.33 k/uL (1.3-7.7) 12/16/23 08:44 Lymphocytes # (Manual) 2.86 k/uL (1.0-4.8) 12/16/23 08:44 Monocytes # (Manual) 0.20 k/uL (0-1.0) 12/16/23 08:44 Eosinophils # (Manual) 0.34 k/uL (0-0.7) 12/16/23 08:44 Basophils # (Manual) 0.07 k/uL (0-0.2) 12/16/23 08:44 Nucleated RBCs 0 /100 WBC (0-0) 12/16/23 08:44 Manual Slide Review Performed 12/16/23 08:44 Sodium 141 mmol/L (137-145) 12/16/23 08:44 Potassium 3.9 mmol/L (3.5-5.1) 12/16/23 08:44 Chloride 109 mmol/L (98-107) H 12/16/23 08:44 Carbon Dioxide 29 mmol/L (22-30) 12/16/23 08:44 Anion Gap 3 mmol/L 12/16/23 08:44 BUN 10 mg/dL (7-17) 12/16/23 08:44 Creatinine 0.57 mg/dL (0.52-1.04) 12/16/23 08:44 Est GFR (CKD-EPI)AfAm >90 (>60 ml/min/1.73 sqM) 12/16/23 08:44 Est GFR (CKD-EPI)NonAf >90 (>60 ml/min/1.73 sqM) 12/16/23 08:44 Glucose 79 mg/dL (74-99) 12/16/23 08:[address] Glu mg/dL 123 mg/dL 12/16/23 08:44 Hemoglobin A1c 5.9 % (<=6.0) 12/16/23 08:44 Calcium 9.2 mg/dL (8.4-10.2) 12/16/23 08:44 Total Bilirubin 0.5 mg/dL (0.2-1.3) 12/16/23 08:44 AST 17 U/L (14-36) 12/16/23 08:44 ALT 12 U/L (4-34) 12/16/23 08:44 Alkaline Phosphatase 63 U/L (38-126) 12/16/23 08:44 Total Protein 6.0 g/dL (6.3-8.2) L 12/16/23 08:44 Albumin 3.4 g/dL (3.5-5.0) L 12/16/23 08:44 Triglycerides 150.00 mg/dL (0.00-149.00) H 12/16/23 08:44 Cholesterol 129.00 mg/dL (0.00-200.00) 12/16/23 08:44 LDL Cholesterol, Calc 60.2 mg/dL (0.0-131.0) 12/16/23 08:44 VLDL Cholesterol, Calc 30.00 mg/dL (5.00-40.00) 12/16/23 08:44 HDL Cholesterol 38.80 mg/dL (40.00-60.00) L 12/16/23 08:44 Cholesterol/HDL Ratio 3.32 Ratio 12/16/23 08:44 TSH 1.100 mIU/L (0.465-4.680) 12/16/23 08:44 Urine Color Yellow 12/15/23 13:30 Urine Appearance Turbid (Clear) H 12/15/23 13:30 Urine pH 6.0 (5.0-8.0) 12/15/23 13:30 Ur Specific [place] 1.029 (1.001-1.035) 12/15/23 13:30 Urine Protein 1+ (Negative) H 12/15/23 13:30 Urine Glucose (UA) Negative (Negative) 12/15/23 13:30 Urine Ketones Negative (Negative) 12/15/23 13:30 Urine Blood Negative (Negative) 12/15/23 13:30 Urine Nitrite Negative (Negative) 12/15/23 13:30 Urine Bilirubin Negative (Negative) 12/15/23 13:30 Urine Urobilinogen 2.0 mg/dL (<2.0) 12/15/23 13:30 Ur Leukocyte Esterase Moderate (Negative) H 12/15/23 13:30 Urine RBC 10 /hpf (0-5) H 12/15/23 13:30 Urine WBC 19 /hpf (0-5) H 12/15/23 13:30 Ur Squamous Epith Cells 21 /hpf (0-4) H 12/15/23 13:30 Urine Bacteria Occasional /hpf (None) H 12/15/23 13:30 Urine Mucus Many /hpf (None) H 12/15/23 13:30 Urine Yeast (Budding) Occasional /hpf (None) H 12/15/23 13:30 Urine HCG, Qual Not Detected (Not Detectd) 12/15/23 13:30 Urine Opiates Screen Not Detected (NotDetected) 12/15/23 11:15 Ur Oxycodone Screen Not Detected (NotDetected) 12/15/23 11:15 Urine Methadone Screen Not Detected (NotDetected) 12/15/23 11:15 Ur Barbiturates Screen Not Detected (NotDetected) 12/15/23 11:15 U Tricyclic Antidepress Not Detected (NotDetected) 12/15/23 11:15 Ur Phencyclidine Scrn Not Detected (NotDetected) 12/15/23 11:15 Ur Amphetamines Screen Detected (NotDetected) H 12/15/23 11:15 U Methamphetamines Scrn Detected (NotDetected) H 12/15/23 11:15 U Benzodiazepines Scrn Detected (NotDetected) H 12/15/23 11:15 Urine Cocaine Screen Detected (NotDetected) H 12/15/23 11:15 U Marijuana (THC) Screen Detected (NotDetected) H 12/15/23 11:15 Influenza Type A (PCR) Not Detected (Not Detectd) 12/15/23 11:15 Influenza Type B (PCR) Not Detected (Not Detectd) 12/15/23 11:15 RSV (PCR) Not Detected (Not Detectd) 12/15/23 11:15 SARS-CoV-2 (PCR) Not Detected (Not Detectd) 12/15/23 11:15 Vital Signs Temp 97.4 F L 12/26/23 08:40 Pulse 104 H 12/26/23 08:40 Resp 17 12/26/23 08:40 BP 98/66 12/26/23 08:40 Pulse Ox 98 12/26/23 08:40 FiO2 Patient Condition at Discharge: Stable Plan - Discharge Summary Discharge Rx Participant: Yes New Discharge Prescriptions: New diphenhydrAMINE [Benadryl] 50 mg PO HS PRN 30 Days #30 cap PRN Reason: Insomnia rOPINIRole HCL [Requip] 0.5 mg PO HS 30 Days #60 tab oxyBUTYnin chloride [Ditropan] 5 mg PO DAILY 30 Days #30 tab Nicotine 14Mg/24Hr Patch [Habitrol] 1 patch TRANSDERM DAILY 14 Days #14 patch Gabapentin [Neurontin] 100 mg PO HS PRN 30 Days #30 cap PRN Reason: Pain OLANZapine [ZyPREXA] 20 mg PO HS 30 Days #30 tab Continue Ibuprofen [Motrin] 600 mg PO Q6HR PRN tab PRN Reason: Moderate Pain (Scale 4 To 6) Omeprazole 20 mg PO DAILY 30 Days #30 cap FLUoxetine HCL [PROzac] 40 mg PO DAILY 30 Days #30 cap Changed Atorvastatin [Lipitor] 20 mg PO DIRECTED 30 Days #30 tab Discontinued Gabapentin [Neurontin] 100 mg PO HS PRN 3 Days #3 cap PRN Reason: Pain Nicotine 14Mg/24Hr Patch [Habitrol] 1 patch TRANSDERM DIRECTED oxyBUTYnin chloride [Ditropan] 5 mg PO DIRECTED traZODone HCL [Desyrel] 50 mg PO DIRECTED PRN PRN Reason: Insomnia OLANZapine [ZyPREXA] 20 mg PO DIRECTED Discharge Medication List Ibuprofen [Motrin] 600 mg PO Q6HR PRN tab 11/08/23 [Rx] Atorvastatin [Lipitor] 20 mg PO DIRECTED 30 Days #30 tab 12/26/23 [Rx] FLUoxetine HCL [PROzac] 40 mg PO DAILY 30 Days #30 cap 12/26/23 [Rx] Gabapentin [Neurontin] 100 mg PO HS PRN 30 Days #30 cap 12/26/23 [Rx] Nicotine 14Mg/24Hr Patch [Habitrol] 1 patch TRANSDERM DAILY 14 Days #14 patch 12/26/23 [Rx] OLANZapine [ZyPREXA] 20 mg PO HS 30 Days #30 tab 12/26/23 [Rx] Omeprazole 20 mg PO DAILY 30 Days #30 cap 12/26/23 [Rx] diphenhydrAMINE [Benadryl] 50 mg PO HS PRN 30 Days #30 cap 12/26/23 [Rx] oxyBUTYnin chloride [Ditropan] 5 mg PO DAILY 30 Days #30 tab 12/26/23 [Rx] rOPINIRole HCL [Requip] 0.5 mg PO HS 30 Days #60 tab 12/26/23 [Rx] Follow up Appointment(s)/Referral(s): [facility] [Outside] - 12/28/23 3:00 pm (12/28/2023 3:00PM - 4:00PM NKECHI GRANT 01/05/2024 10:30AM - 11:30AM JOSSUE IBANEZ Scheduled ) [facility] - 1 Week Patient Instructions/Handouts: How to Stop Smoking (DC), Schizoaffective Disorder (DC) Activity/Diet/Wound Care/Special Instructions: Avoid the use of street drugs and alcohol. Take all medications as prescribed. When you are in need of refills on your medications, please contact your medical provider and/or outpatient psychiatrist/provider to have this done. Please go to your scheduled outpatient appointment for aftercare treatment. If symptoms return or become worse, call the crisis line at and/or go to the nearest emergency room for evaluation. National Suicide Hotline 988 Discharge Disposition: HOME SELF-CARE
== END 2023-12-26 11:23 | disposition home or self-care (01) | DRG 885 ==
LOC: EC 22:24 → 3MHU 12-15 13:04
PROVIDERS: ADMIT Psychiatry & Neurology Psychiatry; ATTEND Psychiatry & Neurology Psychiatry
DX: F25.1 Schizoaffective disorder, depressive type (principal); Z59.00 Homelessness unspecified; Z11.52 Encounter for screening for COVID-19; F17.200 Nicotine dependence, unspecified, uncomplicated; G25.81 Restless legs syndrome; E78.5 Hyperlipidemia, unspecified; K21.9 Gastro-esophageal reflux disease without esophagitis; F12.10 Cannabis abuse, uncomplicated; F14.10 Cocaine abuse, uncomplicated; F15.10 Other stimulant abuse, uncomplicated; N32.81 Overactive bladder; G89.29 Other chronic pain; M54.9 Dorsalgia, unspecified; G47.00 Insomnia, unspecified; Z56.0 Unemployment, unspecified; Z71.51 Drug abuse counseling and surveillance of drug abuser; Z28.21 Immunization not carried out because of patient refusal
CPT/HCPCS: 80053; 80061; 80306; 81001; 81025; 82075; 83036; 84443; 85025; 87636; 99285

== ENCOUNTER 2024-04-30 10:29 | Inpatient (IN) | payer MEDICARE, MEDICAID ==
--- NOTE | 2024-04-30 11:37 | ED ---
Psych HPI - General Chief Complaint: Psychiatric Symptoms Stated Complaint: mental health Time Seen by Provider: 04/30/24 10:44 Source: patient, RN notes reviewed Mode of arrival: ambulatory Limitations: no limitations - History of Present Illness Initial Comments: 49-year-old female presents emergency department complaint of depression, suicide ideation. Patient states that she has a history of depression supposed to take medications but has not been taking his medications. She denies any self-harm. Denies any illicit drug use and alcohol abuse denies any homicidal ideation. Patient offers no other associated symptoms no physical complaints. - Related Data Previous Rx's Medication Instructions Recorded Ibuprofen [Motrin] 600 mg PO Q6HR PRN tab 11/08/23 Atorvastatin [Lipitor] 20 mg PO DIRECTED 30 Days #30 12/26/23 tab FLUoxetine HCL [PROzac] 40 mg PO DAILY 30 Days #30 cap 12/26/23 Gabapentin [Neurontin] 100 mg PO HS PRN 30 Days #30 cap 12/26/23 Nicotine 14Mg/24Hr Patch [Habitrol] 1 patch TRANSDERM DAILY 14 Days 12/26/23 #14 patch OLANZapine [ZyPREXA] 20 mg PO HS 30 Days #30 tab 12/26/23 Omeprazole 20 mg PO DAILY 30 Days #30 cap 12/26/23 diphenhydrAMINE [Benadryl] 50 mg PO HS PRN 30 Days #30 cap 12/26/23 oxyBUTYnin chloride [Ditropan] 5 mg PO DAILY 30 Days #30 tab 12/26/23 rOPINIRole HCL [Requip] 0.5 mg PO HS 30 Days #60 tab 12/26/23 Allergies Allergy/AdvReac Type Severity Reaction Status Date / Time No Known Allergies Allergy Verified 04/30/24 10:55 Review of Systems ROS Statement: Those systems with pertinent positive or pertinent negative responses have been documented in the HPI. ROS Other: All systems not noted in ROS Statement are negative. Past Medical History Past Medical History: GERD/Reflux, Hyperlipidemia Additional Past Medical History / Comment(s): overactive bladder, chronic back pain History of Any Multi-Drug Resistant Organisms: None Reported Past Surgical History: Cholecystectomy Past Anesthesia/Blood Transfusion Reactions: No Reported Reaction Past Psychological History: Bipolar, Schizophrenia Smoking Status: Current every day smoker Past Alcohol Use History: None Reported Past Drug Use History: Cocaine, Marijuana, Methamphetamine - Past Family History Father Additional Family Medical History / Comment(s): Father in his 50s from mesothelioma. Mother Additional Family Medical History / Comment(s): Mother is alive at age 64 with history of colon cancer and diabetes. Brother(s) Family Medical History: COPD Additional Family Medical History / Comment(s): Patient has 4 brothers and one has scoliosis. She does not have contact with the others. Sister(s) Additional Family Medical History / Comment(s): She has one sister with mental health issues. Daughter(s) Additional Family Medical History / Comment(s): Patient has 2 daughters and one has uterine cancer. She does not have any sons. General Exam Limitations: no limitations General appearance: alert, in no apparent distress Head exam: Present: atraumatic, normocephalic, normal inspection Eye exam: Present: normal appearance, PERRL, EOMI. Absent: scleral icterus, conjunctival injection, periorbital swelling ENT exam: Present: normal exam, mucous membranes moist Neck exam: Present: normal inspection. Absent: tenderness, meningismus, lymphadenopathy Respiratory exam: Present: normal lung sounds bilaterally. Absent: respiratory distress, wheezes, rales, rhonchi, stridor Cardiovascular Exam: Present: regular rate, normal rhythm, normal heart sounds. Absent: systolic murmur, diastolic murmur, rubs, gallop, clicks GI/Abdominal exam: Present: soft, normal bowel sounds. Absent: distended, tenderness, guarding, rebound, rigid Neurological exam: Present: alert, oriented X3 Psychiatric exam: Present: depressed, flat affect Course Vital Signs 04/30/24 04/30/24 10:55 11:56 Temperature 97.8 F Pulse Rate 65 Respiratory 18 18 Rate Blood Pressure 111/76 O2 Sat by Pulse 96 Oximetry Medical Decision Making - Medical Decision Making Was pt. sent in by a medical professional or institution (, PA, TURRET PUNCH PRESS OPERATOR, urgent care, hospital, or correction...) When possible be specific @ -No Did you speak to anyone other than the patient for history (EMS, parent, family, police, friend...)? What history was obtained from this source @ -No Did you review nursing and triage notes (agree or disagree)? Why? @ -I reviewed and agree with nursing and triage notes Were old charts reviewed (outside hosp., previous admission, EMS record, old EKG, old radiological studies, urgent care reports/EKG's, correction records)? Report findings @ -No old charts were reviewed Differential Diagnosis (chest pain, altered mental status, abdominal pain women, abdominal pain men, vaginal bleeding, weakness, fever, dyspnea, syncope, headache, dizziness, GI bleed, back pain, seizure, CVA, palpatations, mental health, musculoskeletal)? @ -Differential Mental Health Depression, anxiety, bipolar, psychosis, schizophrenia, borderline personality, situational depression, adjustment disorder, behavioral disorder, brain tumor, malingering, substance abuse, encephalopathy, medication reaction, dementia, hypothyroidism, degenerative neurologic disorder, lupus.... This is not meant to be all-inclusive list EKG interpreted by me (3pts min.). @ -None X-rays interpreted by me (1pt min.). @ -None done CT interpreted by me (1pt min.). @ -None done U/S interpreted by me (1pt. min.). @ -None done What testing was considered but not performed or refused? (CT, X-rays, U/S, labs)? Why? @ -None What meds were considered but not given or refused? Why? @ -None Did you discuss the management of the patient with other professionals (professionals i.e. , PA, TURRET PUNCH PRESS OPERATOR, lab, RT, psych nurse, older adult social work specialist, auto claim representative, teacher, commanding officer motorized squad, adult protective caseworker)? Give summary @ -EPS evaluated the patient recommended inpatient treatment Was smoking cessation discussed for >3mins.? @ -No Was critical care preformed (if so, how long)? @ -No Were there social determinants of health that impacted care today? How? (Homelessness, low income, unemployed, alcoholism, drug addiction, transportation, low edu. Level, literacy, decrease access to med. care, shelter, rehab)? @ -No Was there de-escalation of care discussed even if they declined (Discuss DNR or withdrawal of care, Hospice)? DNR status @ -No What co-morbidities impacted this encounter? (DM, HTN, Smoking, COPD, CAD, Cancer, CVA, ARF, Chemo, Hep., AIDS, mental health diagnosis, sleep apnea, morbid obesity)? @ -None Was patient admitted / discharged? Hospital course, mention meds given and route, prescriptions, significant lab abnormalities, going to OR and other pertinent info. @ -Admitted to 3 W. Undiagnosed new problem with uncertain prognosis? @ -No Drug Therapy requiring intensive monitoring for toxicity (Heparin, Nitro, Insulin, Cardizem)? @ -No Were any procedures done? @ -No Diagnosis/symptom? @ -Depression, suicide ideation Acute, or Chronic, or Acute on Chronic? @ -Acute Uncomplicated (without systemic symptoms) or Complicated (systemic symptoms)? @ -Complicated Side effects of treatment? @ -No Exacerbation, Progression, or Severe Exacerbation? @ -No Poses a threat to life or bodily function? How? (Chest pain, [place], NC, pneumonia, PE, COPD, DKA, ARF, appy, cholecystitis, CVA, Diverticulitis, Homicidal, Suicidal, threat to staff... and all critical care pts) @ -Yes suicidal Disposition Clinical Impression: Suicidal ideation, Depression Disposition: TRANSFER TO PSYCH HOSP/UNIT Referrals: None,Stated [Primary Care Provider] - 1-2 days Time of Disposition: 12:53
[2024-04-30] MEDS ORDERED: MAGNESIUM HYDROXIDE 2,400 MG/30 ML CUP PO PRN (14:13)
[2024-04-30] MEDS ORDERED: ACETAMINOPHEN TAB 325 MG TAB PO PRN (14:13)
[2024-04-30] MEDS ORDERED: HALOPERIDOL LACTATE 5 MG/ML 1 ML VIAL IM PRN (14:13)
[2024-04-30] MEDS ORDERED: LORazepam 2 MG/ML INJ IM PRN (14:13)
[2024-04-30] MEDS ORDERED: haloperidoL 5 MG TAB PO PRN (14:13)
[2024-04-30] MEDS: OLANZapine 10 MG TAB PO SCH (20:33)
[2024-04-30] MEDS: ATORVASTATIN 20 MG TAB PO SCH (20:33)
[2024-04-30] MEDS ORDERED: ATORVASTATIN 20 MG TAB PO SCH (21:00)
[2024-05-01] MEDS: oxyBUTYnin chloride 5 MG TAB PO SCH (09:23)
[2024-05-01] MEDS: FLUoxetine HCL 20 MG CAP PO SCH (09:23)
[2024-05-01] MEDS: PANTOPRAZOLE 40 MG TABLET PO SCH (09:23)
[2024-05-01] MEDS: NICOTINE 14MG/24HR PATCH TRANSDERM SCH (09:24)
--- NOTE | 2024-05-01 11:25 | P.HP ---
Psychiatric H&P - . H&P Date: 05/01/24 History & Physical: Allergies Allergy/AdvReac Type Severity Reaction Status Date / Time No Known Allergies Allergy Verified 04/30/24 10:55 Vital Signs Temp 97.0 F L 04/30/24 15:12 Pulse 60 05/01/24 07:08 Resp 18 04/30/24 15:12 BP 109/71 05/01/24 07:08 Pulse Ox 95 04/30/24 15:12 FiO2 Intake & Output 04/30/24 05/01/24 05/01/24 18:59 06:59 18:59 Weight 92.079 kg Laboratory Last Values SARS-CoV-2 (PCR) Not Detected (Not Detectd) 04/30/24 12:49 05/01/24 11:14 IDENTIFYING DATA: Patient is a 49-year-old female, living alone with ACT team CHIEF COMPLAINT: Suicidal thoughts HPI: Patient presented to the hospital with suicidal ideations without a plan. EPS note revealed, "patient presented to ER related to suicidal ideations without a plan. Patient was assessed in ER13 from [id number]. Patient verbalizes she brought herself in for suicidal ideations. When asked about a plan she states she has a plan to hang herself. Patient verbalizes a previous attempt 2-3 weeks ago by hanging. Patient states at the time following this attempt she went to a "mental institution" but states she doesn't remember where. Patient states she is open with [facility] and verbalizes she last seen them today. Per [facility], patient has not been into [facility] since 01/2024. Patient verbalizes auditory hallucinations of "bad things" and elaborates stating that the voices "tell me I'm not suppose to be here". Patient states at times the voices tell her to harm herself. Patient verbalizes visual hallucinations of "blood everywhere" then elaborates that it appears all around oozing out of the carranza. Patient verbalizes feeling paranoid, but states that is mainly revolved around homelessness and sleeping outside. Patient verbalizes daily marijuana and crack use. States she smokes marijuana a joint daily and uses approx $20-$100 of crack daily. Patient verbalizes hx of substance use tx and states she was in treatment recently but has not stopped using substances. Patient denies homicidal ideations. Patient verbalizes eating 1 meal /day and states this is a mix of lack of appetite but also limited access to food. Patient states she sleeps poorly, about 3 hours at night. Patient denies issues maintaining hygiene. Patient verbalizes her only support system is [facility]. Patient denies guns/weapons or access to lethal means." Patient seen and evaluated in her room and was agreeable to speak to parts data writer in her room. She reports feeling "tired". She reports being "mentally sick" for the past year and that this has been progressively worsening. She reports predominant symptoms of sleep and appetite difficulties, low energy and anhedonia. She does report using crack cocaine regularly up until 3 days ago and that she is motivated to no longer use however when asked about going to rehab she did not respond. She does report rehab being helpful in the past however. She reports a history of devorah described as elevated energy and decreased need for sleep however given her history of stimulant abuse it is hard to determine if this is related to substance. She reports ongoing auditory hallucinations described as negative. She reports suicidal thoughts however denies a plan or intent. Patient denies any homicidal ideations intent or plan or visual hallucinations. Patient denies any flight of ideas racing thoughts and increased in goal directed behavior. Patient admits to using crack cocaine, cigarettes daily and cannabis daily. PAST PSYCHIATRIC HISTORY: Patient has a history of schizoaffective disorder, polysubstance abuse including cocaine, cannabis and methamphetamine. Patient is currently prescribed diphenhydramine 50 mg at bedtime as needed, Prozac 40 mg daily, ropinirole 0.5 mg at bedtime, Zyprexa 20 mg at bedtime. Patient reportedly has had 5 inpatient hospitalizations this year alone, most recent at [facility] late March-early April. Patient follows with [facility] with ACT team, psychiatrist is Dr. Saeed. Patient reports at least 5 previous suicide attempts PMH: as per ER note ALLERGIES: as per EMR SUBSTANCE USE HISTORY: Patient reports using crack cocaine daily up until 3 days ago, cannabis daily and nicotine daily. She denies any alcohol use. She has a history of methamphetamine use. FAMILY PSYCHIATRIC/SUBSTANCE USE HISTORY: Patient reports her aunt attempted suicide and that her mother and sister both abused crack cocaine. Lives alone and has no children. She states she is and is on SSI. She completed her GED. Patient reportedly has a warrant out for larceny. MENTAL STATUS EXAM: General Appearance: Patient appears to be older than stated age is somnolent however overall cooperative. Patient appears to have poor hygiene and grooming. Behavior: Patient is laying without any agitated behavior. Speech: Patient's speech is fluent and nonpressured. Mood/Affect: Patient reports their mood is depressed, affect is congruent and constricted. Suicidality/Homicidality: Patient denies having any homicidal ideation intent or plan. She reports suicidal ideations with no plan Perceptions: Patient denies any visual hallucinations and she reports auditory hallucinations that are negative in nature Though content/process: There is no evidence of any delusional thought content and thought process is linear. Memory and concentration: AOX3, grossly intact for the purposes of this session. Judgment and insight: Poor STRENGTHS/WEAKNESSES: strength is that patient is resilient. Weakness is that patient has poor judgment and has a history of substance abuse INTELLECT: Below average IMPRESSIONS: Depression, unspecified, likely substance-induced History of schizoaffective disorder, bipolar type Cocaine use disorder Tobacco use disorder Cannabis use disorder PLAN: -Patient is admitted under voluntary status to [facility] for stabilization of psychiatric symptoms and safety. Patient has signed adult voluntary form and medication consent and is placed in patient's chart. -Medications : Continue Prozac 40 mg daily, Zyprexa 20 mg at bedtime, Requip 0.5 mg at bedtime -Ativan and Haldol PRN for agitation/aggression -Patient was counselled on substance abuse and desired to cut back on use-Will offer patient subtance use rehab -Patient was informed of the risks, benefits and side effects of the medication and patient verbally consented to taking the medications. Patient signed med consent form and was placed in chart. -Internal Medicine consult to perform medical evaluation and physical. -NRT -nicotine patch -SW on board for discharge planning. Encourage patient to participate in groups to work on coping skills. Anticipate discharge home either late this week or early next week pending stabilization in safety concerns 05/01/24 11:24
[2024-05-02] MEDS: FLUoxetine HCL 20 MG CAP PO STA (11:28)
--- NOTE | 2024-05-02 11:49 | P.PN ---
Progress Note - Text Progress Note Date: 05/02/24 Interval History: Patient was seen laying in bed and was directable and agreeable to speak with production underwriter in her room. She reports feeling worse today and that both voices have worsened and her suicidal thoughts. She reports suicidal thoughts with a plan to hang herself. She reports poor sleep overnight however is often seen asleep in bed during encounters. She states appetite is okay. She reports stress on the outside regarding housing as she is homeless. Patient also apparently has a larceny charge pending thus unsure if there is secondary gain with being at this hospital. Patient denies any paranoia or delusions. Patient denies any side effects from the medications and has been compliant with meds. Mental Status Exam: General Appearance: Patient appears to be older than stated age is somnolent but cooperative. Behavior: Patient is calmly laying without any agitated behavior. Speech: Patient's speech is fluent and nonpressured. Mood/Affect: Mood is "worse", affect is congruent and constricted. Suicidality/Homicidality: Patient reports suicidal thoughts with a plan but denies any homicidal ideation intent or plan. Perceptions: Patient denies any visual hallucinations but reports worsening in her auditory hallucinations that are negative in nature and saying belittling things Though content/process: There is no evidence of any delusional thought content and thought process is linear. Memory and concentration: AOX3, grossly intact for the purposes of this session Judgment and insight: Improving mildly Assessment Depression, unspecified, likely of substance-induced History of schizoaffective disorder, bipolar type Cocaine use disorder Tobacco use disorder Cannabis use disorder Plan: -Patient continues to meet criteria for inpatient psychiatric admission for symptom stabilization and safety. Patient has signed adult voluntary form and medication consent and was placed in patient's chart. -Medications: Increase Prozac to 60 mg daily and continue Zyprexa 20 mg at bedtime, Requip 0.5 mg at bedtime -When necessary Ativan and Haldol for agitation/aggression. -Labs: Reviewed -NRT -nicotine patch -SW on board for discharge planning. Encouraged the patient to participate in milieu. Anticipate [facility] jail early/mid next week pending stabilizati on in safety concerns
--- NOTE | 2024-05-02 18:07 | P.MDCNMH ---
History of Present Illness H&P Date: 05/02/24 History of Presenting Illness: Patient is a 49-year-old female with a past medical history of hyperlipidemia, GERD, peripheral neuropathy with restless legs, depression, schizoaffective disorder, nicotine dependence, and polysubstance use with cocaine and cannabis. She is currently admitted to inpatient mental health unit under psychiatry team for treatment of depression and suicidal ideations. We were consulted for medical evaluation and completion of medical H&P for this admission. Patient seen and fully evaluated on mental health unit. She was ambulatory with a steady gait. She currently denies having any complaints including headache, lightheadedness, dizziness, chest pain, palpitations, shortness of breath, or experiencing any numbness/tingling/weakness in her extremities at this time. Patient reports she has an okay appetite states occasional pain in her legs from her restless leg syndrome. Patient denies having any other medical questions, needs, or complaints at this time. Review of systems: Pertinent positives and negatives as discussed in HPI, a complete review of systems was performed and all other systems are negative. Physical exam: Vital signs reviewed and stable. General: Nontoxic, no distress and appears stated age. Obese. Derm: Skin warm and dry, normal coloration for ethnicity. Head: Atraumatic, normocephalic and symmetric. Eyes: EOM's intact, no lid lag, and anicteric sclera Mouth: no lip lesions, mucus membranes moist. Missing teeth. Cardiovascular: regular rate and rhythm with normal S1S2, no murmur, positive posterior tibial pulses bilaterally, and cap refill < 2 seconds. Lungs: Respirations even, regular, and unlabored on room air. Lungs CTA bilaterally, no rhonchi, no rales, no wheezing, and no accessory muscle usage. Abdominal: soft, nontender to palpation, no guarding, no appreciable organomegaly Ext: ROM intact. No gross muscle atrophy, no edema, no contractures Neuro: Speech clear, face symmetrical and CN II-XII grossly intact with no noted focal neuro deficits Psych: Alert and oriented to person, place, time, and situation. Appropriate and pleasant affect. Assessment and Plan of Care: Intermittent pain/paresthesias in bilateral lower extremities Peripheral neuropathy Restless leg syndrome -Patient to continue with Requip 0.5 mg nightly and will place order for Requip 0.25 mg twice daily as needed for restless leg pain. Hyperlipidemia -Patient to continue atorvastatin 20 mg daily. GERD -Continue omeprazole 20 mg daily. Nicotine dependence -Continue nicotine patch 14 mg daily and recommend smoking cessation. Polysubstance abuse -Recommend cessation of cocaine and cannabis. May consider inpatient drug and alcohol rehabilitation facility upon discharge from mental health unit. Depression with reports of suicidal ideations Schizoaffective disorder -Management per primary admitting psychiatric team. Data reviewed: -Vital signs reviewed. Blood pressure 06/28/1971, rate 62, respiratory rate 18, temp 97.2 F, SpO2 of 90% on room air. -PCR negative. Thank you for allowing us to participate in the care of this pleasant patient. Do not hesitate to contact us with questions. Someone can be reached from the [facility] hospitalist group all hours of the day at [phone] or via [employer]. Patient was seen independently by Nurse Practitioner. This document was prepared using [employer] dictation software. Please allow for errors in yoker machine operator while rare they do occur. Clifton Domingo NP rendered care for this patient independently, reviewed the findings and plan as documented in the note above and agree with plan. I did not physically speak with or examine the patient on this date. Past Medical History Past Medical History: GERD/Reflux, Hyperlipidemia Additional Past Medical History / Comment(s): overactive bladder, chronic back pain History of Any Multi-Drug Resistant Organisms: None Reported Past Surgical History: Cholecystectomy Past Anesthesia/Blood Transfusion Reactions: No Reported Reaction Past Psychological History: Bipolar, Schizophrenia Smoking Status: Current every day smoker Past Alcohol Use History: None Reported Additional Past Alcohol Use History / Comment(s): patient is a smoker of two pack per day since she was 10 years of age. She states does not drink anymore. Reports being homeless. Past Drug Use History: Cocaine, Marijuana - Past Family History Father Additional Family Medical History / Comment(s): Father in his 50s from mesothelioma. Mother Additional Family Medical History / Comment(s): Mother is alive at age 64 with history of colon cancer and diabetes. Brother(s) Family Medical History: COPD Additional Family Medical History / Comment(s): Patient has 4 brothers and one has scoliosis. She does not have contact with the others. Sister(s) Additional Family Medical History / Comment(s): She has one sister with mental health issues. Daughter(s) Additional Family Medical History / Comment(s): Patient has 2 daughters and one has uterine cancer. She does not have any sons. Medications and Allergies Home Medications Medication Instructions Recorded Confirmed Type FLUoxetine HCL [PROzac] 40 mg PO DAILY 30 Days #30 cap 12/26/23 04/30/24 Rx Omeprazole 20 mg PO DAILY 30 Days #30 cap 12/26/23 04/30/24 Rx diphenhydrAMINE [Benadryl] 50 mg PO HS PRN 30 Days #30 cap 12/26/23 04/30/24 Rx oxyBUTYnin chloride [Ditropan] 5 mg PO DAILY 30 Days #30 tab 12/26/23 04/30/24 Rx Atorvastatin [Lipitor] 20 mg PO DAILY 04/30/24 04/30/24 History Nicotine 21Mg/24Hr Patch [Habitrol] 1 patch TRANSDERM DAILY 04/30/24 04/30/24 History OLANZapine [ZyPREXA] 20 mg PO HS 04/30/24 04/30/24 History rOPINIRole HCL [Requip] 0.5 mg PO HS 04/30/24 04/30/24 History Allergies Allergy/AdvReac Type Severity Reaction Status Date / Time No Known Allergies Allergy Verified 04/30/24 10:55 Physical Exam Vitals: Vital Signs Pulse BP 05/02/24 06:54 64 95/67 Cranial Nerve Examination - Cranial Nerves Cranial Nerve II- Optic: Intact Cranial Nerve III- Oculomotor: Intact Cranial Nerve IV- Trochlear: Intact Cranial Nerve V- Trigeminal: Intact Cranial Nerve - Abducens: Intact Cranial Nerve VII- Facial: Intact Cranial Nerve VIII- Auditory: Intact Cranial Nerve IX- Glossopharyngeal: Intact Cranial Nerve X- Vagus: Intact Cranial Nerve XI- Accessory: Intact Cranial Nerve XII- Hypoglossal: Intact
[2024-05-02] MEDS: MAG HYDROX/AL HYDROX/SIMETH 355 ML BOTTLE PO PRN (19:24)
[2024-05-03 06:47] VITALS: TEMP 98.1
[2024-05-03] MEDS: FLUoxetine HCL 20 MG CAP PO SCH (08:25)
--- NOTE | 2024-05-03 11:30 | P.PN ---
Progress Note - Text Progress Note Date: 05/03/24 Interval History: Patient was seen laying in bed and was directable and agreeable to speak with brief writer in her room. She states feeling the same as yesterday however upon probing she reports lessening in her auditory hallucinations and when asked about suicidal thoughts she reports, "not really". Of note patient reported suicidal ideations with a plan overnight however was able to contract for safety. She reports improvement in terms of her appetite and sleep. She has not attended groups however has had no behaviors on the unit. She states she is homeless and is unsure if she will be able to find a fci given the limitations in this area. At this time patient denies any homicidal ideations, intent or plan. Patient denies any visual hallucinations and denies any paranoia or delusions. Patient denies any side effects from the medications and has been compliant with meds. Mental Status Exam: General Appearance: Patient appears to be older than stated age is alert, directable, and cooperative. Behavior: Patient is calmly laying without any agitated behavior. Speech: Patient's speech is brief, low volume and nonpressured. Mood/Affect: Mood is improving mildly, affect is congruent and constricted. Suicidality/Homicidality: Patient denies having any suicidal or homicidal ideation intent or plan. Perceptions: Patient denies any visual hallucinations but reports auditory hallucinations that have lessened in intensity Though content/process: There is no evidence of any delusional thought content and thought process is linear and logical. Memory and concentration: AOX3, grossly intact for the purposes of this session Judgment and insight: Improving mildly Assessment Depression, unspecified, likely substance-induced History of schizoaffective disorder, bipolar type Cocaine use disorder Tobacco use disorder Cannabis use disorder Plan: -Patient continues to meet criteria for inpatient psychiatric admission for symptom stabilization and safety. Patient has signed adult voluntary form and medication consent and was placed in patient's chart. -Medications: Continue Prozac 60 mg daily for depression, Zyprexa 20 mg at bedtime for psychosis, Requip 0.5 mg at bedtime for RLS -When necessary Ativan and Haldol for agitation/aggression. -Labs: Reviewed -NRT -nicotine patch -SW on board for discharge planning. Encouraged the patient to participate in milieu. Anticipate discharge to fci early-mid next week stabilization in safety concerns
[2024-05-03] MEDS: LORazepam 1 MG TAB PO PRN (21:06)
--- NOTE | 2024-05-04 12:51 | P.PN ---
Progress Note - Text Progress Note Date: 05/04/24 Interval history: Patient was seen at the bedside and was directable and agreeable to speak with bid writer. She descirbes her mood as "so-so" today. She has continued to hear voices that "want me to hang myself," but these have decreased in intensity and severity. She also notes seeing "half-faces" at times; this is a symptom that has not occurred in a long time. She reports sleeping well. Her appetite is stable. She's concerned about finding housing after discharge; she has not been stably housed in a long time. She does feel she's improving gradually during this admission. At this time patient denies any suicidal or homicidal ideations intent or plan. Denies any auditory or visual hallucinations. Patient denies any side effects from the medications and has been compliant with meds. Mental status exam: General Appearance: Patient appears to be stated age is alert, directable, and c ooperative. Behavior: No agitated behavior. Patient is calm and directable. Resting in bed. Speech: Patient's speech is fluent and non-pressured. Mood/Affect: Mood is improving mildly, affect is congruent and constricted. Suicidality/Homicidality: Patient denies having any suicidal or homicidal ideation intent or plan. Perceptions: Patient endorses voices that tell her to "hang myself" and seeing images of "half-faces." Though content/process: There is no evidence of any grossly delusional thought content and thought process is linear and goal-directed. Memory and concentration: AOX3, grossly intact for the purposes of this session Judgment and insight: improving mildly Assessment/Plan: Continue with current diagnoses: unspecified depressive disorder (likely substance induced), cocaine use disorder, cannabis use disorder, tobacco use disorder, history of schizoaffective disorder-bipolar type Patient continues to meet criteria for inpatient psychiatric admission for symptom stabilization and safety. Patient will be maintained on current psychotropic medication regimen: Continue Prozac 60 mg daily, Zyprexa 20 mg daily, Requip 0.5 mg for restless legs syndrome Monitor for medication compliance and for any psychotropic medication side effects. Will continue to monitor ongoing response to treatment. Encouraged participation in milieu.
[2024-05-04 14:46] LABS: Appearance,Urine Cloudy (Clear); Bacteria,Urine Rare /hpf; Bilirubin,Urine Negative (Negative); Blood,Urine Negative (Negative); Color,Urine Light Yellow; Glucose,Urine (UA) Negative (Negative); Ketones,Urine Negative (Negative); Leukocyte Esterase,Urine Negative (Negative); Nitrite,Urine Negative (Negative); Protein,Urine Negative (Negative); RBC,Urine 1 /hpf (0-5); Squamous Epithelial Cell,Urine 11 /hpf (0-4); Urobilinogen,Urine <2.0 mg/dL (<2.0); WBC,Urine 2 /hpf (0-5)
[2024-05-04] MEDS: diphenhydrAMINE 50 MG CAP PO PRN (23:35)
--- NOTE | 2024-05-05 11:56 | P.PN ---
Progress Note - Text Interval history: Patient was seen in the [facility] and was agreeable to speak with check writer. She did not remember meeting me yesterday but was pleasant and willing to engage. When asked about her mood she said "my attitude is better". She has been sleeping and eating okay. She notes that she has a positive outlook about the future and is hoping to be able to move into a alf or other supported living environment after discharge from the hospital. She shared that she does receive disability income each month and is anticipating getting her payment on May 10. She also shared that she works with an ACT team on an outpatient basis and feels she can reach out to them if she is experiencing distress. She does not have any other social support. At this time patient denies any suicidal or homicidal ideations intent or plan. Denies any auditory or visual hallucinations; this has resolved. Patient denies any side effects from the medications and has been compliant with meds. Mental status exam: General Appearance: Patient appears to be stated age is alert, directable, and cooperative. Behavior: No agitated behavior. Patient is calm and directable. Resting in bed. Speech: Patient's speech is fluent and non-pressured. Mood/Affect: Mood is "better", affect is congruent and euthymic, more expressive. Suicidality/Homicidality: Patient denies having any suicidal or homicidal ideation intent or plan. Perceptions: Patient endorses voices that tell her to "hang myself" and seeing images of "half-faces." Though content/process: There is no evidence of any grossly delusional thought content and thought process is linear and goal-directed. Memory and concentration: AOX3, grossly intact for the purposes of this session Judgment and insight: improving mildly Assessment/Plan: Continue with current diagnoses: unspecified depressive disorder (likely substance induced), cocaine use disorder, cannabis use disorder, tobacco use disorder, history of schizoaffective disorder-bipolar type Patient continues to meet criteria for inpatient psychiatric admission for symptom stabilization and safety. Patient will be maintained on current psychotropic medication regimen: Continue Prozac 60 mg daily, Zyprexa 20 mg daily, Requip 0.5 mg for restless legs syndrome Monitor for medication compliance and for any psychotropic medication side effects. Will continue to monitor ongoing response to treatment. Encouraged participation in milieu.
[2024-05-06 05:59] LABS: Amphetamine Screen,Urine Not Detected (NotDetected); Barbiturate Screen,Urine Not Detected (NotDetected); Benzodiazepines Screen,Urine Detected (NotDetected); Cocaine Screen,Urine Not Detected (NotDetected); Methadone Screen, Urine Not Detected (NotDetected); Opiate Screen,Urine Not Detected (NotDetected); Oxycodone Screen, Urine Not Detected (NotDetected); Phencyclidine Screen,Urine Not Detected (NotDetected); Tricyclic Antidepressant,Urine Not Detected (NotDetected); Urn Cannabinoid Scrn Not Detected (NotDetected)
[2024-05-06 07:03] VITALS: BP 112/74; PULSE 78; RESP 16
[2024-05-06 10:47] LABS: Urine Alcohol Negative (Negative); Urine Barbiturate Negative (Negative); Urine Cocaine Negative (Negative); Urine Methadone Negative (Negative); Urine Opiates Negative (Negative); Urine Phencyclidine Negative (Negative)
--- NOTE | 2024-05-06 12:41 | P.DS ---
Providers Date of admission: 04/30/24 14:07 Expected date of discharge: 05/06/24 Attending physician: Renata Alberto MD Consults: 04/30/24 14:13 Consult Physician Routine Consulting Provider: Carlita Calderon Consult Reason/Comments: History and Physical Do you want consulting provider notified?: Yes Primary care physician: Stated None - Discharge Diagnosis(es) (1) Depression Current Visit: Yes Status: Acute Priority: High (2) Cocaine use disorder Current Visit: Yes Status: Acute Priority: High (3) Cannabis use disorder Current Visit: Yes Status: Acute Priority: Medium (4) Nicotine dependence Current Visit: Yes Status: Chronic Priority: Low Hospital Course: Admission HPI: Admission note was completed by junior underwriter "Patient presented to the hospital with suicidal ideations without a plan. EPS note revealed, "patient presented to ER related to suicidal ideations without a plan. Patient was assessed in ER13 from [id number]. Patient verbalizes she brought herself in for suicidal ideations. When asked about a plan she states she has a plan to hang herself. Patient verbalizes a previous attempt 2-3 weeks ago by hanging. Patient states at the time following this attempt she went to a "mental institution" but states she doesn't remember where. Patient states she is open with [facility] and verbalizes she last seen them today. Per [facility], patient has not been into [facility] since 01/2024. Patient verbalizes auditory hallucinations of "bad things" and elaborates stating that the voices "tell me I'm not suppose to be here". Patient states at times the voices tell her to harm herself. Patient verbalizes visual hallucinations of "blood everywhere" then elaborates that it appears all around oozing out of the carranza. Patient verbalizes feeling paranoid, but states that is mainly revolved around homelessness and sleeping outside. Patient verbalizes daily marijuana and crack use. States she smokes marijuana a joint daily and uses approx $20-$100 of crack daily. Patient verbalizes hx of substance use tx and states she was in treatment recently but has not stopped using substances. Patient denies homicidal ideations. Patient verbalizes eating 1 meal /day and states this is a mix of lack of appetite but also limited access to food. Patient states she sleeps poorly, about 3 hours at night. Patient denies issues maintaining hygiene. Patient verbalizes her only support system is [facility]. Patient denies guns/weapons or access to lethal means." Patient seen and evaluated in her room and was agreeable to speak to junior underwriter in her room. She reports feeling "tired". She reports being "mentally sick" for the past year and that this has been progressively worsening. She reports predominant symptoms of sleep and appetite difficulties, low energy and anhedonia. She does report using crack cocaine regularly up until 3 days ago and that she is motivated to no longer use however when asked about going to rehab she did not respond. She does report rehab being helpful in the past however. She reports a history of devorah described as elevated energy and decreased need for sleep however given her history of stimulant abuse it is hard to determine if this is related to substa nce. She reports ongoing auditory hallucinations described as negative. She reports suicidal thoughts however denies a plan or intent. Patient denies any homicidal ideations intent or plan or visual hallucinations. Patient denies any flight of ideas racing thoughts and increased in goal directed behavior. Patient admits to using crack cocaine, cigarettes daily and cannabis daily." Hospital course: Upon admission to the unit patient was directable and agreeable to commence treatment and signed adult voluntary form.. Patient was mostly isolative in the beginning, often seen asleep in her room however towards the end of her stay she got along well with other patients on the unit and followed unit protocol. Patient was compliant with the medications and denied any side effects throughou t hospital course. Patient was started on Prozac and this was increased to 60 mg daily for depression, Zyprexa continued at 20 mg at bedtime for psychosis, Requip 0.5 mg at bedtime for RLS. Patient spoke of her stressors and engaged in therapy both group and individual. Patient was also seen by medical team for history and physical exam. Throughout the course of the hospitalization patient gradually improved with regards to mood, anxiety, sleep and returned back to their baseline level of functioning. On the day of discharge patient denied any suicidal or homicidal ideations intent or plan denied any auditory or visual hallucinations. The patient denied any access to guns or weapons. Patient denied any paranoia and did not endorse any delusions. Patient does have a significant history of substance abuse and was counseled on abstaining from all substances including alcohol and marijuana. Patient was offered however declined inpatient substance-abuse rehab. Patient was also counseled on the medications and need for regular compliance and was encouraged to follow-up with their outpatient appointment for mental health and also for primary care. Patient to be discharged to friend's house. She receives ACT services and will follow-up with [facility] Mental status exam: General Appearance: Patient appears to be older than stated age is alert, pleasant, and cooperative. Patient is in no acute distress and has improved hygiene and grooming Behavior: Patient is calmly seated without any agitated behavior. Speech: Patient's speech is fluent and nonpressured. Mood/Affect: Patient reports their mood is "better", affect is congruent and euthymic. Suicidality/Homicidality: Patient denies having any suicidal or homicidal ideation intent or plan. Perceptions: Patient denies any auditory or visual hallucinations. Though content/process: There is no evidence of any delusional thought content and thought process is linear and goal-directed. Memory and concentration: AOX3, grossly intact for the purposes of this session. Can spell "WORLD" backwards correctly. Judgment and insight: Chronically poor, however has improved with guarded prognosis Impression: Depression, unspecified, likely substance-induced History of schizoaffective disorder, bipolar type Cocaine use disorder Cannabis use disorder Nicotine dependence Plan: -Continue with discharge today as patient has improved and stabilized psychiatrically and is not currently an imminent threat to themself and/or others. Patient will remain at chronically elevated risk for harm to self and/or others due to their impulsivity and substance abuse. -Continue medications: Prozac 60 mg daily, Zyprexa 20 mg at bedtime, Requip 0.5 mg at bedtime -Patient was counseled on the need for medication compliance and appropriate follow-up at mental health and also primary care for medical issues. Patient verbalized understanding and agreed. -Social work to help coordinate patients discharge today. also to ensure safe home environment that guns/weapons are either removed from the home or locked away. Social work also to arrange for patients follow up appointments with [facility] for psychiatric care along with follow up with primary care provider. -Patient counseled on abstaining from recreational drugs and marijuana and alcohol. Was informed/educated on the adverse effects on their physical and mental health. Patient verbally agreed and understood. Patient was offered substance abuse treatment however declined at this time. -Patient was instructed to return to the hospital or seek immediate medical care if their psychiatric or medical symptoms do worsen or reoccur. Abnormal Labs 05/04/24 05/05/24 14:30 20:55 Urine Appearance Cloudy H Ur Squamous Epith Cells 11 H Urine Bacteria Rare H U Benzodiazepines Scrn Detected H Vital Signs Temp 98.1 F 05/06/24 07:02 Pulse 78 05/06/24 07:02 Resp 16 05/06/24 07:02 BP 112/74 05/06/24 07:02 Pulse Ox 97 05/06/24 07:02 FiO2 Intake & Output 05/05/24 05/06/24 05/06/24 18:59 06:59 18:59 Weight 93.8 kg Allergies Allergy/AdvReac Type Severity Reaction Status Date / Time No Known Allergies Allergy Verified 04/30/24 10:55 Patient Condition at Discharge: Stable Plan - Discharge Summary Discharge Rx Participant: No New Discharge Prescriptions: New FLUoxetine HCL [PROzac] 60 mg PO DAILY 30 Days #90 cap Nicotine 14Mg/24Hr Patch [Habitrol] 1 patch TRANSDERM DAILY patch Pantoprazole [Protonix] 40 mg PO DAILY 30 Days #30 tab Continue rOPINIRole HCL [Requip] 0.5 mg PO HS 30 Days #30 tab OLANZapine [ZyPREXA] 20 mg PO HS 30 Days #30 tab diphenhydrAMINE [Benadryl] 50 mg PO HS PRN 30 Days #30 cap PRN Reason: Insomnia oxyBUTYnin chloride [Ditropan] 5 mg PO DAILY 30 Days #30 tab Changed Atorvastatin [Lipitor] 20 mg PO DAILY 30 Days #30 tab Discontinued Omeprazole 20 mg PO DAILY 30 Days #30 cap Nicotine 21Mg/24Hr Patch [Habitrol] 1 patch TRANSDERM DAILY FLUoxetine HCL [PROzac] 40 mg PO DAILY 30 Days #30 cap Discharge Medication List Atorvastatin [Lipitor] 20 mg PO DAILY 30 Days #30 tab 05/06/24 [Rx] FLUoxetine HCL [PROzac] 60 mg PO DAILY 30 Days #90 cap 05/06/24 [Rx] Nicotine 14Mg/24Hr Patch [Habitrol] 1 patch TRANSDERM DAILY patch 05/06/24 [Rx] OLANZapine [ZyPREXA] 20 mg PO HS 30 Days #30 tab 05/06/24 [Rx] Pantoprazole [Protonix] 40 mg PO DAILY 30 Days #30 tab 11/25/24 [Rx] diphenhydrAMINE [Benadryl] 50 mg PO HS PRN 30 Days #30 cap 05/06/24 [Rx] oxyBUTYnin chloride [Ditropan] 5 mg PO DAILY 30 Days #30 tab 05/06/24 [Rx] rOPINIRole HCL [Requip] 0.5 mg PO HS 30 Days #30 tab 05/06/24 [Rx] Follow up Appointment(s)/Referral(s): [facility] [Outside] - 05/16/24 2:30 pm (05/16/2024 2:30PM - 3:30PM TRACY GUEVARA [facility] [REFERRING] - 1 Week Patient Instructions/Handouts: Depression (DC), Schizoaffective Disorder (DC), Polysubstance Abuse (ED) Activity/Diet/Wound Care/Special Instructions: [facility] Discharge Info Avoid the use of street drugs and alcohol. Take all medications as prescribed. When you are in need of refills on your medications, please contact your outpatient medical provider and/or outpatient psychiatrist. Please go to your scheduled outpatient appointments for aftercare treatment. If symptoms return or become worse, call the crisis line at or and/or visit the nearest emergency room for assistance. National Suicide and Crisis Lifeline - call or text 573 Discharge Disposition: HOME SELF-CARE
== END 2024-05-06 12:55 | disposition home or self-care (01) | DRG 881 ==
LOC: EC 10:29 → 3MHU 14:07
PROVIDERS: ADMIT Psychiatry & Neurology Psychiatry; ATTEND Psychiatry & Neurology Psychiatry
DX: F32.A Depression, unspecified (principal); R45.851 Suicidal ideations; F25.0 Schizoaffective disorder, bipolar type; F17.210 Nicotine dependence, cigarettes, uncomplicated; F41.9 Anxiety disorder, unspecified; E78.5 Hyperlipidemia, unspecified; G62.9 Polyneuropathy, unspecified; Z71.51 Drug abuse counseling and surveillance of drug abuser; F12.10 Cannabis abuse, uncomplicated; F14.10 Cocaine abuse, uncomplicated; G25.81 Restless legs syndrome; N32.81 Overactive bladder; Z59.48 Other specified lack of adequate food; Z79.899 Other long term (current) drug therapy; Z91.148 Patient's other noncompliance with medication regimen for other reason; Z91.51 Personal history of suicidal behavior; Z11.52 Encounter for screening for COVID-19
CPT/HCPCS: 80306; 81001; 81025; 82075; 87635; 99285

== ENCOUNTER 2024-05-26 17:24 | Emergency (ER) | payer MEDICARE, OTHER ==
[2024-05-26 18:14] VITALS: TEMP 98.2
--- NOTE | 2024-05-26 18:46 | ED ---
Skin/Abscess/FB HPI - General Chief complaint: Skin/Abscess/Foreign Body Stated complaint: Bugs/Head/Infection Time Seen by Provider: 05/26/24 18:43 Source: patient, RN notes reviewed Mode of arrival: ambulatory Limitations: altered mental status - History of Present Illness Initial comments: 49-year-old female with history of schizophrenia presenting for infection to the back of her scalp. States she has been dealing with pain and redness in the back of her scalp for quite some time. States she was told to put hot tea bags on the affected area. States she has been doing this however she has also been picking at the area and she believes she removed a large scab. She has not taken any antibiotics or applied any cream to this area. Denies fever, chills, vomiting. - Related Data Previous Rx's Medication Instructions Recorded Atorvastatin [Lipitor] 20 mg PO DAILY 30 Days #30 tab 05/06/24 FLUoxetine HCL [PROzac] 60 mg PO DAILY 30 Days #90 cap 05/06/24 Nicotine 14Mg/24Hr Patch [Habitrol] 1 patch TRANSDERM DAILY patch 05/06/24 OLANZapine [ZyPREXA] 20 mg PO HS 30 Days #30 tab 05/06/24 Pantoprazole [Protonix] 40 mg PO DAILY 30 Days #30 tab 05/06/24 diphenhydrAMINE [Benadryl] 50 mg PO HS PRN 30 Days #30 cap 05/06/24 oxyBUTYnin chloride [Ditropan] 5 mg PO DAILY 30 Days #30 tab 05/06/24 rOPINIRole HCL [Requip] 0.5 mg PO HS 30 Days #30 tab 05/06/24 Ketoconazole [Nizoral A-D] 1 applic TOPICAL DAILY 14 Days 05/26/24 #120 ml Neomycin/Bacitracin/Polymyxinb 1 applic TOPICAL Q4H 7 Days #15 gm 05/26/24 [Neosporin Ointment] Sulfamethox-Tmp 800-160Mg [Bactrim 1 each PO Q12HR #20 tab 05/26/24 Ds] Allergies Allergy/AdvReac Type Severity Reaction Status Date / Time No Known Allergies Allergy Verified 05/26/24 18:07 Review of Systems ROS Statement: Those systems with pertinent positive or pertinent negative responses have been documented in the HPI. ROS Other: All systems not noted in ROS Statement are negative. Past Medical History Past Medical History: GERD/Reflux, Hyperlipidemia Additional Past Medical History / Comment(s): overactive bladder, chronic back pain History of Any Multi-Drug Resistant Organisms: None Reported Past Surgical History: Cholecystectomy Past Anesthesia/Blood Transfusion Reactions: No Reported Reaction Past Psychological History: Bipolar, Schizophrenia Smoking Status: Current every day smoker Past Alcohol Use History: None Reported Past Drug Use History: Cocaine, Marijuana - Past Family History Father Additional Family Medical History / Comment(s): Father in his 50s from mesothelioma. Mother Additional Family Medical History / Comment(s): Mother is alive at age 64 with history of colon cancer and diabetes. Brother(s) Family Medical History: COPD Additional Family Medical History / Comment(s): Patient has 4 brothers and one has scoliosis. She does not have contact with the others. Sister(s) Additional Family Medical History / Comment(s): She has one sister with mental health issues. Daughter(s) Additional Family Medical History / Comment(s): Patient has 2 daughters and one has uterine cancer. She does not have any sons. General Exam Limitations: altered mental status General appearance: alert, in no apparent distress Head exam: Present: atraumatic, normocephalic, other (Stage II ulceration present on back of scalp with surrounding erythema, no active drainage) Eye exam: Present: normal appearance, PERRL, EOMI. Absent: scleral icterus, con junctival injection, periorbital swelling ENT exam: Present: normal exam, mucous membranes moist Neck exam: Present: normal inspection. Absent: tenderness, meningismus, lymphadenopathy Respiratory exam: Present: normal lung sounds bilaterally. Absent: respiratory distress, wheezes, rales, rhonchi, stridor Cardiovascular Exam: Present: regular rate, normal rhythm, normal heart sounds. Absent: systolic murmur, diastolic murmur, rubs, gallop, clicks Neurological exam: Present: alert, oriented X3 Psychiatric exam: Present: normal affect, normal mood Skin exam: Present: warm, dry, intact, normal color Course Vital Signs 05/26/24 18:07 Temperature 98.2 F Pulse Rate 85 Respiratory 18 Rate Blood Pressure 130/80 O2 Sat by Pulse 99 Oximetry Medical Decision Making - Medical Decision Making Was pt. sent in by a medical professional or institution (Dr., PA, MACHINE OPERATOR HAY STACKER, urgent care, hospital, or jail...) When possible be specific @ -No Did you speak to anyone other than the patient for history (EMS, parent, family, police, friend...)? What history was obtained from this source @ -No Did you review nursing and triage notes (agree or disagree)? Why? @ -I reviewed and agree with nursing and triage notes Were old charts reviewed (outside hosp., previous admission, EMS record, old EKG, old radiological studies, urgent care reports/EKG's, jail records)? Report findings @ -No old charts were reviewed Differential Diagnosis (chest pain, altered mental status, abdominal pain women, abdominal pain men, vaginal bleeding, weakness, fever, dyspnea, syncope, headache, dizziness, GI bleed, back pain, seizure, CVA, palpatations, mental health, musculoskeletal)? @ -Differential Musculoskeletal Muscular strain, contusion, ligament sprain, fracture, arthritis, septic arthritis, bursitis, cellulitis, muscle spasm, nerve compression, DVT, arterial occlusion, herpes zoster, electrolyte abnormality, tumor.... This is not meant to be in all inclusive list EKG interpreted by me (3pts min.). @ -None X-rays interpreted by me (1pt min.). @ -None done CT interpreted by me (1pt min.). @ -None done U/S interpreted by me (1pt. min.). @ -None done What testing was considered but not performed or refused? (CT, X-rays, U/S, labs)? Why? @ -Lab work deferred at this time as there are no red flag symptoms What meds were considered but not given or refused? Why? @ -None Did you discuss the management of the patient with other professionals (professionals i.e. TARA Alexander, MACHINE OPERATOR HAY STACKER, lab, RT, psych nurse, clinical social work therapist, patent lawyer, teacher, loan review officer, family caseworker)? Give summary @ -No Was smoking cessation discussed for >3mins.? @ -No Was critical care preformed (if so, how long)? @ -No Were there social determinants of health that impacted care today? How? (Homelessness, low income, unemployed, alcoholism, drug addiction, transportation, low edu. Level, literacy, decrease access to med. care, correction, rehab)? @ -No Was there de-escalation of care discussed even if they declined (Discuss DNR or withdrawal of care, Hospice)? DNR status @ -No What co-morbidities impacted this encounter? (DM, HTN, Smoking, COPD, CAD, Cancer, CVA, ARF, Chemo, Hep., AIDS, mental health diagnosis, sleep apnea, morbid obesity)? @ -None Was patient admitted / discharged? Hospital course, mention meds given and route, prescriptions, significant lab abnormalities, going to OR and other pertinent info. @ -Discharge. This is a 49-year-old female presenting with scalp infection. Vital signs within acceptable limits. On examination, there is a stage II decubitus ulceration on back of scalp. No red flag symptoms. Discussed diagnosis of decubitus ulceration with patient. Prescribed oral Bactrim, Neosporin, and Nizoral shampoo. Advised close follow-up with PCP. Appropriate return precautions discussed. Case was discussed with my ED attending Dr. Alberto. Undiagnosed new problem with uncertain prognosis? @ -No Drug Therapy requiring intensive monitoring for toxicity (Heparin, Nitro, Insulin, Cardizem)? @ -No Were any procedures done? @ -No Diagnosis/symptom? @ -Stage II decubitus ulceration of scalp Acute, or Chronic, or Acute on Chronic? @ -Acute Uncomplicated (without systemic symptoms) or Complicated (systemic symptoms)? @ -Uncomplicated Side effects of treatment? @ -No Exacerbation, Progression, or Severe Exacerbation? @ -No Poses a threat to life or bodily function? How? (Chest pain, USA, CT, pneumonia, PE, COPD, DKA, ARF, appy, cholecystitis, CVA, Diverticulitis, Homicidal, Suicidal, threat to staff... and all critical care pts) @ -No Disposition Clinical Impression: Decubitus ulcer of head, stage 2 Disposition: HOME SELF-CARE Condition: Stable Instructions (If sedation given, give patient instructions): Pressure Injury (ED) Additional Instructions: Take Bactrim by mouth as directed. Apply Neosporin to affected area every 4 hours. Use zinc shampoo once daily. Follow-up with PCP within the week. Please return to the Emergency Department if symptoms worsen or any other concerns. Prescriptions: Sulfamethox-Tmp 800-160Mg [Bactrim Ds] 1 each PO Q12HR #20 tab Neomycin/Bacitracin/Polymyxinb [Neosporin Ointment] 1 applic TOPICAL Q4H 7 Days #15 gm Ketoconazole [Nizoral A-D] 1 applic TOPICAL DAILY 14 Days #120 ml Is patient prescribed a controlled substance at d/c from ED?: No Referrals: None,Stated [Primary Care Provider] - 1-2 days Forms: Area PCPs Time of Disposition: 19:21
[2024-05-26 19:47] VITALS: BP 117/77; PULSE 82; RESP 16
== END 2024-05-26 19:42 | disposition home or self-care (01) ==
LOC: EC 17:24
DX: L89.812 Pressure ulcer of head, stage 2 (principal); F17.200 Nicotine dependence, unspecified, uncomplicated
CPT/HCPCS: 99282

== ENCOUNTER 2024-06-05 19:05 | Inpatient (IN) | payer MEDICARE, MEDICAID ==
--- NOTE | 2024-06-05 20:08 | ED ---
Skin/Abscess/FB HPI - General Source: patient, RN notes reviewed Mode of arrival: ambulatory Limitations: no limitations - History of Present Illness MD complaint: abscess/boil Onset/Timin -: days(s) Location: neck Associated symptoms: cough Treatments Prior to Arrival: attempted to drain pus at home <Oz Fitzpatrick - Last Filed: 06/05/24 22:14> <Jahaira Minor - Last Filed: 06/06/24 19:31> - General Chief complaint: Skin/Abscess/Foreign Body Stated complaint: abscess on head Time Seen by Provider: 06/05/24 19:24 - History of Present Illness Initial comments: This is a 49-year-old female with history of schizophrenia, bipolar disorder and substance abuse presenting with abscess of neck x 3 days. Patient states that she suspects spiders are in the abscess also living in her lips. Attempted squeezing abscess with an old small amount of purulent material expressed. Patient endorses suicidal ideation, making stabbing motion towards her self when asked if she has a plan. Patient states she "smoked something" but today and yesterday but did not specify what it was. Patient denies HI or consistent use of prescribed medication. Patient also endorses productive cough but cannot specify duration. States she has not urinated all day but denies urinary symptoms. Denies fever, chills, fatigue, dizziness, chest pain, dyspnea, a bdominal pain, N/V/D. (Oz Fitzpatrick) - Related Data Home Medications Medication Instructions Recorded Confirmed Sulfamethox-Tmp 800-160Mg [Bactrim 1 tab PO Q12HR 06/06/24 06/06/24 Ds] Previous Rx's Medication Instructions Recorded Atorvastatin [Lipitor] 20 mg PO DAILY 30 Days #30 tab 05/06/24 FLUoxetine HCL [PROzac] 60 mg PO DAILY 30 Days #90 cap 05/06/24 OLANZapine [ZyPREXA] 20 mg PO HS 30 Days #30 tab 05/06/24 Pantoprazole [Protonix] 40 mg PO DAILY 30 Days #30 tab 05/06/24 diphenhydrAMINE [Benadryl] 50 mg PO HS PRN 30 Days #30 cap 05/06/24 oxyBUTYnin chloride [Ditropan] 5 mg PO DAILY 30 Days #30 tab 05/06/24 rOPINIRole HCL [Requip] 0.5 mg PO HS 30 Days #30 tab 05/06/24 Ketoconazole [Nizoral A-D] 1 applic TOPICAL DAILY 14 Days 05/26/24 #120 ml Neomycin/Bacitracin/Polymyxinb 1 applic TOPICAL Q4H 7 Days #15 gm 05/26/24 [Neosporin Ointment] Cephalexin [Keflex] 500 mg PO Q6HR 7 Days #28 cap 06/05/24 Mupirocin 2% Oint [Bactroban 2% 1 applic TOPICAL TID #22 gm 06/05/24 Oint] Allergies Allergy/AdvReac Type Severity Reaction Status Date / Time No Known Allergies Allergy Verified 06/06/24 10:39 Review of Systems ROS Other: All systems not noted in ROS Statement are negative. <Oz Fitzpatrick - Last Filed: 06/05/24 22:14> ROS Other: All systems not noted in ROS Statement are negative. <Jahaira Minor - Last Filed: 06/06/24 19:31> ROS Statement: Those systems with pertinent positive or pertinent negative responses have been documented in the HPI. Past Medical History Past Medical History: GERD/Reflux, Hyperlipidemia Additional Past Medical History / Comment(s): overactive bladder, chronic back pain, History of Any Multi-Drug Resistant Organisms: None Reported Past Surgical History: Cholecystectomy Past Anesthesia/Blood Transfusion Reactions: No Reported Reaction Past Psychological History: Bipolar, Schizophrenia Smoking Status: Current every day smoker Past Alcohol Use History: None Reported Past Drug Use History: Cocaine, Marijuana - Past Family History Father Additional Family Medical History / Comment(s): Father in his 50s from mesothelioma. Mother Additional Family Medical History / Comment(s): Mother is alive at age 64 with history of colon cancer and diabetes. Brother(s) Family Medical History: COPD Additional Family Medical History / Comment(s): Patient has 4 brothers and one has scoliosis. She does not have contact with the others. Sister(s) Additional Family Medical History / Comment(s): She has one sister with mental health issues. Daughter(s) Additional Family Medical History / Comment(s): Patient has 2 daughters and one has uterine cancer. She does not have any sons. <Oz Fitzpatrick - Last Filed: 06/05/24 22:14> General Exam Limitations: no limitations General appearance: alert, in no apparent distress Head exam: Present: atraumatic, normocephalic, normal inspection Eye exam: Present: normal appearance, PERRL, EOMI. Absent: scleral icterus, conjunctival injection, periorbital swelling ENT exam: Present: normal exam, mucous membranes moist Neck exam: Present: other (4 cm circular, edematous area with erythema on dorsal neck with some tenderness. Central scabbing noted. No obvious discharge, fluctuance). Absent: tenderness, meningismus, lymphadenopathy Respiratory exam: Present: normal lung sounds bilaterally. Absent: respiratory distress, wheezes, rales, rhonchi, stridor Cardiovascular Exam: Present: regular rate, normal rhythm, normal heart sounds. Absent: systolic murmur, diastolic murmur, rubs, gallop, clicks GI/Abdominal exam: Present: soft, normal bowel sounds. Absent: distended, tenderness, guarding, rebound, rigid Extremities exam: Present: normal inspection, full ROM, normal capillary refill. Absent: tenderness, pedal edema, joint swelling, calf tenderness Back exam: Present: normal inspection. Absent: CVA tenderness (R), CVA tenderness (L) Neurological exam: Present: alert, oriented X3, CN II-XII intact Psychiatric exam: Present: agitated (Patient speaking tangentially and often rocking in bed during interview), suicidal ideation Skin exam: Present: warm, dry, intact, normal color. Absent: rash <Amari,Oz - Last Filed: 06/05/24 22:14> Course Vital Signs 06/05/24 06/05/24 06/06/24 19:07 20:22 00:05 Temperature 98.5 F 98.4 F Pulse Rate 88 76 Respiratory 18 19 Rate Blood Pressure 124/59 119/71 125/80 O2 Sat by Pulse 98 97 95 Oximetry 06/06/24 06/06/24 06/06/24 03:01 08:59 14:20 Temperature Pulse Rate 69 76 82 Respiratory 18 20 20 Rate Blood Pressure 118/77 116/70 117/67 O2 Sat by Pulse 96 95 98 Oximetry Procedures - Incision & Drainage Consent Obtained: verbal consent Indication: Edema on dorsal neck Site: neck Anesthetic Used: lidocaine 1% Amount (mLs): 1 I&D Cleaning Method: Alcohol Wipe Sterile Field Used?: No Scalpel Used: #11 Ultrasound used: No Needle Aspiration Performed?: No Irrigation Performed?: No I&D Drainage Obtained: Blood Insertion of drain: No Culture Obtained?: No Complications: bleeding Patient Tolerated Procedure: well <Oz Fitzpatrick - Last Filed: 06/05/24 22:14> Medical Decision Making <Oz Fitzpatrick - Last Filed: 06/05/24 22:14> - Radiology Data Radiology results: report reviewed, image reviewed <Jahaira Minor - Last Filed: 06/06/24 19:31> - Medical Decision Making Was pt. sent in by a medical professional or institution (, PA, SPEEDER TENDER, urgent care, hospital, or penitentiary...) When possible be specific @ -[No] Did you speak to anyone other than the patient for history (EMS, parent, family, police, friend...)? What history was obtained from this source @ -[No] Did you review nursing and triage notes (agree or disagree)? Why? @ -[I reviewed and agree with nursing and triage notes] Were old charts reviewed (outside hosp., previous admission, EMS record, old EKG, old radiological studies, urgent care reports/EKG's, penitentiary records)? Report findings @ -[No old charts were reviewed] Differential Diagnosis (chest pain, altered mental status, abdominal pain women, abdominal pain men, vaginal bleeding, weakness, fever, dyspnea, syncope, headache, dizziness, GI bleed, back pain, seizure, CVA, palpatations, mental health, musculoskeletal)? @ -Cutaneous abscess, spider bite, cellulitis, schizophrenia, suicidal ideation, substance abuse, this is not an exhaustive list EKG interpreted by me (3pts min.). @ -Not done X-rays interpreted by me (1pt min.). @ -CXR shows no acute cardiopulmonary process. CT interpreted by me (1pt min.). @ -[None done] U/S interpreted by me (1pt. min.). @ -[None done] What testing was considered but not performed or refused? (CT, X-rays, U/S, labs)? Why? @ -[None] What meds were considered but not given or refused? Why? @ -[None] Did you discuss the management of the patient with other professionals (professionals i.e. , PA, SPEEDER TENDER, lab, RT, psych nurse, social sciences professor, legal support specialist, teacher, [employer] revenue officer, patient case coordinator)? Give summary @ -[No] Was smoking cessation discussed for >3mins.? @ -[No] Was critical care preformed (if so, how long)? @ -[No] Were there social determinants of health that impacted care today? How? (Homelessness, low income, unemployed, alcoholism, drug addiction, transportation, low edu. Level, literacy, decrease access to med. care, group home, rehab)? @ -[No] Was there de-escalation of care discussed even if they declined (Discuss DNR or withdrawal of care, Hospice)? DNR status @ -[No] What co-morbidities impacted this encounter? (DM, HTN, Smoking, COPD, CAD, Cancer, CVA, ARF, Chemo, Hep., AIDS, mental health diagnosis, sleep apnea, morbid obesity)? @ -Schizophrenia, bipolar disorder Was patient admitted / discharged? Hospital course, mention meds given and route, prescriptions, significant lab abnormalities, going to OR and other pertinent info. @ -CXR unremarkable. Cepheid test and alcohol negative. Attempted I&D of suspected dorsal neck abscess with no purulent material expressed, just blood. Covered with 2 x 2 gauze and tape. Keflex and mupirocin ointment sent to patient's pharmacy. Undiagnosed new problem with uncertain prognosis? @ -[No] Drug Therapy requiring intensive monitoring for toxicity (Heparin, Nitro, Insulin, Cardizem)? @ -[No] Were any procedures done? @ -[No] Diagnosis/symptom? @ -Suicidal ideation, schizophrenia, cutaneous abscess Acute, or Chronic, or Acute on Chronic? @ -Acute Uncomplicated (without systemic symptoms) or Complicated (systemic symptoms)? @ -Complicated Side effects of treatment? @ -[No] Exacerbation, Progression, or Severe Exacerbation? @ -[No] Poses a threat to life or bodily function? How? (Chest pain, USA, NH, pneumonia, PE, COPD, DKA, ARF, appy, cholecystitis, CVA, Diverticulitis, Homicidal, Suicidal, threat to staff... and all critical care pts) @ -Suicidal ideation (Oz Fitzpatrick) Case was signed out to me by Oz Fitzpatrick PA-C, at shift completion pending UDS and EPS evaluation. UDS positive for amphetamines, methamphetamines, marijuana, benzodiazepines, and cocaine. Her alcohol level was negative and she was cleared for EPS evaluation. EPS evaluated the patient and requested she be given Zyprexa and Benadryl. This was administered and they requested the patient rest in the emergency department and the psychiatrist will evaluate her in the morning. Case signed out to ED attending at shift completion pending psychiatric evaluation and disposition. (Jahaira Minor) - Lab Data Lab Results 06/05/24 06/05/24 06/05/24 Range/Units 20:09 20:09 20:09 Urine Color Light Yellow Urine Appearance Clear (Clear) Urine pH 6.5 (5.0-8.0) Ur Specific [place] 1.019 (1.001-1.035) Urine Protein Negative (Negative) Urine Glucose (UA) Negative (Negative) Urine Ketones Negative (Negative) Urine Blood Negative (Negative) Urine Nitrite Negative (Negative) Urine Bilirubin Negative (Negative) Urine Urobilinogen <2.0 (<2.0) mg/dL Ur Leukocyte Esterase Negative (Negative) Urine Opiates Screen Not Detected (NotDetected) Ur Oxycodone Screen Not Detected (NotDetected) Urine Methadone Screen Not Detected (NotDetected) Ur Barbiturates Screen Not Detected (NotDetected) U Tricyclic Antidepress Not Detected (NotDetected) Ur Phencyclidine Scrn Not Detected (NotDetected) Ur Amphetamines Screen Detected H (NotDetected) U Methamphetamines Scrn Detected H (NotDetected) U Benzodiazepines Scrn Detected H (NotDetected) Urine Cocaine Screen Detected H (NotDetected) U Marijuana (THC) Screen Detected H (NotDetected) Serum Alcohol <10 mg/dL Influenza Type A (PCR) (Not Detectd) Influenza Type B (PCR) (Not Detectd) RSV (PCR) (Not Detectd) SARS-CoV-2 (PCR) (Not Detectd) 06/05/24 Range/Units 20:09 Urine Color Urine Appearance (Clear) Urine pH (5.0-8.0) Ur Specific [place] (1.001-1.035) Urine Protein (Negative) Urine Glucose (UA) (Negative) Urine Ketones (Negative) Urine Blood (Negative) Urine Nitrite (Negative) Urine Bilirubin (Negative) Urine Urobilinogen (<2.0) mg/dL Ur Leukocyte Esterase (Negative) Urine Opiates Screen (NotDetected) Ur Oxycodone Screen (NotDetected) Urine Methadone Screen (NotDetected) Ur Barbiturates Screen (NotDetected) U Tricyclic Antidepress (NotDetected) Ur Phencyclidine Scrn (NotDetected) Ur Amphetamines Screen (NotDetected) U Methamphetamines Scrn (NotDetected) U Benzodiazepines Scrn (NotDetected) Urine Cocaine Screen (NotDetected) U Marijuana (THC) Screen (NotDetected) Serum Alcohol mg/dL Influenza Type A (PCR) Not Detected (Not Detectd) Influenza Type B (PCR) Not Detected (Not Detectd) RSV (PCR) Not Detected (Not Detectd) SARS-CoV-2 (PCR) Not Detected (Not Detectd) Disposition <Oz Fitzpatrick - Last Filed: 06/05/24 22:14> <Jahaira Minor - Last Filed: 06/06/24 19:31> Clinical Impression: Abscess, Suicidal ideations, Psychosis Disposition: TRANSFER TO PSYCH HOSP/UNIT
--- NOTE | 2024-06-05 20:18 | XR ---
EXAMINATION TYPE: XR chest 2V DATE OF EXAM: 06/05/2024 8:11 PM COMPARISON: None. CLINICAL INDICATION: Female, 49 years old with history of Productive cough; [facility] TECHNIQUE: XR chest 2V Frontal and lateral views of the chest. FINDINGS: Lungs/Pleura: There is no evidence of pleural effusion, focal consolidation, or pneumothorax. Pulmonary vascularity: Unremarkable. Heart/mediastinum: Cardiomediastinal silhouette is unremarkable. Musculoskeletal: No acute osseous pathology. Other findings: None IMPRESSION: No acute cardiopulmonary disease/process. [facility], , 06/05/2024 8:16 PM
[2024-06-05] MEDS: LIDOCAINE 1% INJ 10MG/ML (20 ML MDV) SQ ONE (21:33)
[2024-06-05 23:16] LABS: Appearance,Urine Clear (Clear); Bilirubin,Urine Negative (Negative); Blood,Urine Negative (Negative); Color,Urine Light Yellow; Glucose,Urine (UA) Negative (Negative); Ketones,Urine Negative (Negative); Leukocyte Esterase,Urine Negative (Negative); Nitrite,Urine Negative (Negative); PH, Urine 6.5 (5.0-8.0); Protein,Urine Negative (Negative); Specific Gravity,Urine 1.019 (1.001-1.035); Urobilinogen,Urine <2.0 mg/dL (<2.0)
[2024-06-05 23:26] LABS: Amphetamine Screen,Urine Detected (NotDetected); Barbiturate Screen,Urine Not Detected (NotDetected); Benzodiazepines Screen,Urine Detected (NotDetected); Cocaine Screen,Urine Detected (NotDetected); Methadone Screen, Urine Not Detected (NotDetected); Opiate Screen,Urine Not Detected (NotDetected); Oxycodone Screen, Urine Not Detected (NotDetected); Phencyclidine Screen,Urine Not Detected (NotDetected); Tricyclic Antidepressant,Urine Not Detected (NotDetected); Urn Cannabinoid Scrn Detected (NotDetected)
[2024-06-06] MEDS: OLANZapine ODT 10 MG TAB PO STA (01:29)
[2024-06-06] MEDS: diphenhydrAMINE 50 MG CAP PO STA (01:29)
[2024-06-06] MEDS ORDERED: OLANZapine 10 MG VIAL IM PRN (12:59)
[2024-06-06] MEDS ORDERED: OLANZapine 10 MG TAB PO PRN (12:59)
--- NOTE | 2024-06-06 13:10 | P.CN ---
Psychiatric Consult - . Consult date: 06/06/24 Consult:: 06/06/24 13:02 IDENTIFYING DATA: This patient is a 49-year-old female, currently homeless REASON FOR REFERRAL: Psychiatry was consulted for psych eval HISTORY OF PRESENT ILLNESS: The patient presented to the hospital with chief complaint of abscess on neck for the past 3 days. In the ED patient was noted to express delusional thoughts, discussing spiders being in the abscess in addition to suicidal ideations. EPS note revealed, "Patient was dropped off by an Unknown person. Patient is lying in bed with noted psychomotor agitation picking at lips and back of head. Noted restless and constant movement in arms and legs bilaterally. Admits to meth and cocaine use within the past day. Sates she uses everyday. Does not remember the last time she took medications for mental health. States that " She came in because the spiders were getting in her head and the Doctor fixed it." Thinks carisa Manuel Monkeys are constantly after her. Having difficulty with her gait." Patient's UDS was positive for several substances including amphetamines, methamphetamines, benzodiazepines, cocaine, cannabis. Patient notably was very restless in the ED yesterday and received as needed Zyprexa 10 mg and Benadryl 50 mg however was still restless today but was seen asleep in bed. Patient was a poor historian, mumbling at times with questions. Patient did express using several substances however appear precontemplative, stating she has no problem with using substances and that rehab is "too crowded with too many people". At this time patient denies any suicidal or homical ideations, intent or plan. Patient does appear disorganized in her thoughts. PAST PSYCHIATRIC HISTORY: Patient has a a history of depression, cocaine use disorder, cannabis use disorder, nicotine dependence. Been nonadherent with her psychotropic medications however most recently was discharged on Zyprexa 20 mg daily, Prozac 60 mg daily, Requip 0.5 mg at bedtime. Patient was recently hospitalized at this facility April 2024. Patient follows with [facility] and has acting. Patient reports at least 5 previous suicide attempts PAST MEDICAL HISTORY: GERD, dyslipidemia, chronic back pain. ALLERGIES: as per EMR. CHEMICAL DEPENDENCY HISTORY: as per HPI. FAMILY PSYCHIATRIC/SUBSTANCE USE HISTORY: Patient states aunt attempted suicide and that both mother and sister abused crack SOCIAL HISTORY: Patient is currently unemployed but on SSI, homeless and has no children. She completed her GED. MENTAL STATUS EXAM: General Appearance: Patient appears to be stated age is somnolent and largely uncooperative. Patient appears to have poor hygiene and grooming wearing hospital gown with poor eye contact. Behavior: There is evidence of psychomotor restlessness Speech: Patient's speech is brief and mumbled Mood/Affect: Patient reports their mood is "okay", affect is congruent, constricted Suicidality/Homicidality: Patient denies having any suicidal or homicidal ideation intent or plan. Perceptions: Patient denies any visual hallucinations and denies any auditory hallucinations Though content/process: There is of disorganized thoughts Judgment and insight: Poor IMPRESSIONS: Psychosis, unspecified History of schizoaffective disorder, bipolar type Polysubstance use disorder (cocaine, methamphetamine, benzodiazepine, cannabis) PLAN: -At this time patient DOES meet criteria for inpatient psychiatric admission. -Would recommend the following medication changes/additions: Added Zyprexa p.o./IM as needed for acute agitation -Continue 1:1 sitter for safety -Cannot leave AMA at this time. Patient will need a petition and certification if attempting to leave AMA. -Substance Abuse Rn spoke with patient about substance abuse and the harmful effects on medical and mental health, patient verbally understood and agreed. -When medically stable, patient is eligible for transfer to a psych bed when available. -Communicated plan to patient's nurse -Psychiatry will sign off at this time -Please contact with any questions.
[2024-06-06] MEDS ORDERED: MAGNESIUM HYDROXIDE 2,400 MG/30 ML CUP PO PRN (14:25)
[2024-06-06] MEDS ORDERED: hydrOXYzine HCL 50 MG/ML 1 ML VIAL IM PRN (14:25)
[2024-06-06] MEDS ORDERED: IBUPROFEN 600 MG TAB PO PRN (14:25)
[2024-06-07] MEDS: ACETAMINOPHEN TAB 325 MG TAB PO PRN (00:39)
[2024-06-07] MEDS: diphenhydrAMINE 25 MG CAP PO PRN (00:40)
[2024-06-07] MEDS: OLANZapine ODT 10 MG TAB PO PRN (08:56)
[2024-06-07] MEDS: NICOTINE 14MG/24HR PATCH TRANSDERM SCH (08:57)
[2024-06-07 09:42] LABS: Basophils % (A) 0 %; Eosinophils # (A) 0.2 k/uL (0-0.7); Eosinophils % (A) 2 %; HCT 46.9 % (34.0-46.0); HGB 14.6 gm/dL (11.4-16.0); Lymphocytes # (A) 2.4 k/uL (1.0-4.8); Lymphocytes % (A) 24 %; MCH 29.7 pg (25.0-35.0); MCHC 31.1 g/dL (31.0-37.0); MCV 95.5 fL (80.0-100.0); Mean Platelet Volume 7.5; Monocytes # (A) 0.5 k/uL (0-1.0); Monocytes % (A) 5 %; Neutrophils # (A) 6.7 k/uL (1.3-7.7); Neutrophils % (A) 67 %; Platelet Count 299 k/uL (150-450); RBC 4.92 m/uL (3.80-5.40); RDW 13.4 % (11.5-15.5); WBC 9.9 k/uL (3.8-10.6)
[2024-06-07 10:32] LABS: ALT 20 U/L (4-34); AST 16 U/L (14-36); African American GFR (CKD) >90 (>60 ml/min/1.73 sqM); Alkaline Phosphatase 83 U/L (38-126); Anion Gap 7 mmol/L; Blood Urea Nitrogen 11 mg/dL (7-17); Calcium 9.5 mg/dL (8.4-10.2); Carbon Dioxide 28 mmol/L (22-30); Chloride 103 mmol/L (98-107); Glucose 90 mg/dL (74-99); Non-African American GFR(CKD) >90 (>60 ml/min/1.73 sqM); Potassium 4.5 mmol/L (3.5-5.1); Sodium 138 mmol/L (137-145); Total Bilirubin 0.2 mg/dL (0.2-1.3); Total Protein 6.7 g/dL (6.3-8.2)
--- NOTE | 2024-06-07 11:41 | P.HP ---
Psychiatric H&P - . H&P Date: 06/07/24 History & Physical: Allergies Allergy/AdvReac Type Severity Reaction Status Date / Time No Known Allergies Allergy Verified 06/06/24 10:39 Vital Signs Temp 96.6 F L 06/07/24 07:25 Pulse 78 06/07/24 07:25 Resp 14 06/07/24 07:25 BP 99/70 06/07/24 07:25 Pulse Ox 97 06/07/24 07:25 FiO2 Intake & Output 06/06/24 06/07/24 06/07/24 18:59 06:59 18:59 Weight 87.118 kg Laboratory Last Values WBC 9.9 k/uL (3.8-10.6) 06/07/24 09:33 RBC 4.92 m/uL (3.80-5.40) 06/07/24 09:33 Hgb 14.6 gm/dL (11.4-16.0) 06/07/24 09:33 Hct 46.9 % (34.0-46.0) H 06/07/24 09:33 MCV 95.5 fL (80.0-100.0) 06/07/24 09:33 MCH 29.7 pg (25.0-35.0) 06/07/24 09:33 MCHC 31.1 g/dL (31.0-37.0) 06/07/24 09:33 RDW 13.4 % (11.5-15.5) 06/07/24 09:33 Plt Count 299 k/uL (150-450) 06/07/24 09:33 MPV 7.5 06/07/24 09:33 Neutrophils % 67 % 06/07/24 09:33 Lymphocytes % 24 % 06/07/24 09:33 Monocytes % 5 % 06/07/24 09:33 Eosinophils % 2 % 06/07/24 09:33 Basophils % 0 % 06/07/24 09:33 Neutrophils # 6.7 k/uL (1.3-7.7) 06/07/24 09:33 Lymphocytes # 2.4 k/uL (1.0-4.8) 06/07/24 09:33 Monocytes # 0.5 k/uL (0-1.0) 06/07/24 09:33 Eosinophils # 0.2 k/uL (0-0.7) 06/07/24 09:33 Basophils # 0.0 k/uL (0-0.2) 06/07/24 09:33 Sodium 138 mmol/L (137-145) 06/07/24 09:33 Potassium 4.5 mmol/L (3.5-5.1) 06/07/24 09:33 Chloride 103 mmol/L (98-107) 06/07/24 09:33 Carbon Dioxide 28 mmol/L (22-30) 06/07/24 09:33 Anion Gap 7 mmol/L 06/07/24 09:33 BUN 11 mg/dL (7-17) 06/07/24 09:33 Creatinine 0.75 mg/dL (0.52-1.04) 06/07/24 09:33 Est GFR (CKD-EPI)AfAm >90 (>60 ml/min/1.73 sqM) 06/07/24 09:33 Est GFR (CKD-EPI)NonAf >90 (>60 ml/min/1.73 sqM) 06/07/24 09:33 Glucose 90 mg/dL (74-99) 06/07/24 09:33 Calcium 9.5 mg/dL (8.4-10.2) 06/07/24 09:33 Total Bilirubin 0.2 mg/dL (0.2-1.3) 06/07/24 09:33 AST 16 U/L (14-36) 06/07/24 09:33 ALT 20 U/L (4-34) 06/07/24 09:33 Alkaline Phosphatase 83 U/L (38-126) 06/07/24 09:33 Total Protein 6.7 g/dL (6.3-8.2) 06/07/24 09:33 Albumin 4.0 g/dL (3.5-5.0) 06/07/24 09:33 TSH 1.440 mIU/L (0.465-4.680) 06/07/24 09:33 Urine Color Light Yellow 06/05/24 20:09 Urine Appearance Clear (Clear) 06/05/24 20:09 Urine pH 6.5 (5.0-8.0) 06/05/24 20:09 Ur Specific [place] 1.019 (1.001-1.035) 06/05/24 20:09 Urine Protein Negative (Negative) 06/05/24 20:09 Urine Glucose (UA) Negative (Negative) 06/05/24 20:09 Urine Ketones Negative (Negative) 06/05/24 20:09 Urine Blood Negative (Negative) 06/05/24 20:09 Urine Nitrite Negative (Negative) 06/05/24 20:09 Urine Bilirubin Negative (Negative) 06/05/24 20:09 Urine Urobilinogen <2.0 mg/dL (<2.0) 06/05/24 20:09 Ur Leukocyte Esterase Negative (Negative) 06/05/24 20:09 Urine Opiates Screen Not Detected (NotDetected) 06/05/24 20:09 Ur Oxycodone Screen Not Detected (NotDetected) 06/05/24 20:09 Urine Methadone Screen Not Detected (NotDetected) 06/05/24 20:09 Ur Barbiturates Screen Not Detected (NotDetected) 06/05/24 20:09 U Tricyclic Antidepress Not Detected (NotDetected) 06/05/24 20:09 Ur Phencyclidine Scrn Not Detected (NotDetected) 06/05/24 20:09 Ur Amphetamines Screen Detected (NotDetected) H 06/05/24 20:09 U Methamphetamines Scrn Detected (NotDetected) H 06/05/24 20:09 U Benzodiazepines Scrn Detected (NotDetected) H 06/05/24 20:09 Urine Cocaine Screen Detected (NotDetected) H 06/05/24 20:09 U Marijuana (THC) Screen Detected (NotDetected) H 06/05/24 20:09 Serum Alcohol <10 mg/dL 06/05/24 20:09 Influenza Type A (PCR) Not Detected (Not Detectd) 06/05/24 20:09 Influenza Type B (PCR) Not Detected (Not Detectd) 06/05/24 20:09 RSV (PCR) Not Detected (Not Detectd) 06/05/24 20:09 SARS-CoV-2 (PCR) Not Detected (Not Detectd) 06/05/24 20:09 06/07/24 11:21 IDENTIFYING DATA: Patient is a 49-year-old female, homeless and unemployed on disability CHIEF COMPLAINT: Psychosis HPI: Patient presented to the hospital with concerns regarding a neck abscess however patient was reporting spiders in the abscess and endorsing suicidal thoughts. EPS evaluation revealed, "Patient was dropped off by an Unknown person. Patient is lying in bed with noted psychomotor agitation picking at lips and back of head. Noted restless and constant movement in arms and legs bilaterally. Admits to meth and cocaine use within the past day. Sates she uses everyday. Does not remember the last time she took medications for mental health. States that " She came in because the spiders were getting in her head and the Doctor fixed it." Thinks carisa Manuel Monkeys are constantly after her. Having difficulty with her gait." patient's UDS was noted to be positive for several substances including amphetamines, methamphetamines, benzodiazepines, cannabis, cocaine. Patient seen and evaluated on the unit and was agreeable with speaking to magnetic tape typewriter operator in her room. She states that she has been experiencing tactile and auditory hallucinations, stating that there are spiders all over her. Patient does not endorse her substance use and appeared to minimize these concerns, stating she does not know how her UDS was positive for several substances. She denied any withdrawal symptoms or cravings and is not agreeable with rehab at this time, appearing precontemplative. Patient states she has been nonadherent with her psychotropic medications and is currently homeless. Patient noted to be restless, moving about in bed. Patient reports suicidal ideations today however denies any homicidal ideations intent or plan. Patient denies any flight of ideas racing thoughts and increased in goal directed behavior. Patient admits to using nicotine daily however was minimizing her other substance use despite positive UDS. PAST PSYCHIATRIC HISTORY: Patient has a history of schizoaffective disorder, polysubstance use. Patient denies being on any psychiatric medications. He most recently was discharged on Prozac 3 mg daily, Zyprexa 20 mg at bedtime, Requip 0.5 mg at bedtime. Patient has had several inpatient hospitalizations, including this year alone, most recent 04/2024. Patient follows with [facility] and has ACT team. Patient reports at least 5 suicide attempts. PMH: as per ER note ALLERGIES: as per EMR SUBSTANCE USE HISTORY: As per HPI FAMILY PSYCHIATRIC/SUBSTANCE USE HISTORY: Patient states her and attempted suicide and that her mother and sister both struggled with substances SOCIAL HISTORY: Patient is currently homeless. She is and has no children. She is on disability. She completed her GED. MENTAL STATUS EXAM: General Appearance: Patient appears to be older than stated age is somnolent but largely cooperative. Patient appears to have poor hygiene and grooming. Behavior: Patient is and there is evidence of psychomotor restlessness Speech: Patient's speech is fluent and nonpressured. Mood/Affect: Patient reports their mood is depressed, affect is congruent and constricted. Suicidality/Homicidality: Patient denies having any homicidal ideation intent or plan. Patient reports suicidal ideations Perceptions: Patient denies any visual hallucinations however she reports both auditory and tactile hallucinations Though content/process: There is evidence of delusional thoughts however thought process is linear Memory and concentration: AOX3, grossly intact for the purposes of this session. Can spell "WORLD" backwards Judgment and insight: Poor STRENGTHS/WEAKNESSES: strength is that patient is resilient and reportedly has ACT team. Weakness is that patient has poor judgment, uses several substances, has poor insight and is impulsive INTELLECT: Below average IMPRESSIONS: Psychosis, unspecified, likely substance-induced History of schizoaffective disorder, bipolar type Polysubstance use disorder (crack cocaine, methamphetamine, benzodiazepines, cannabis) Nicotine dependence PLAN: -Patient is admitted under voluntary status to MHU for stabilization of psychiatric symptoms and safety. Patient has signed adult voluntary form and medication consent and is placed in patient's chart. -Medications : Start Zyprexa 5 mg at bedtime for psychosis with a plan to increase this to 10 mg at bedtime tomorrow. Start Prozac 20 mg daily for depression, Requip 0.5 mg at bedtime for RLS -Hydroxyzine and Zyprexa PRN for agitation/aggression -Patient was counselled on substance abuse and desired to cut back on use-Will offer patient subtance use rehab -Patient was informed of the risks, benefits and side effects of the medication and patient verbally consented to taking the medications. Patient signed med consent form and was placed in chart. -Internal Medicine consult to perform medical evaluation and physical. -NRT -nicotine patch -SW on board for discharge planning. Encourage patient to participate in groups to work on coping skills.
[2024-06-07 15:49] LABS: Chol/HDL Ratio 2.71 Ratio; LDL Cholesterol,Calculated 49.6 mg/dL (0.0-131.0)
[2024-06-07] MEDS: OLANZapine 5 MG TAB PO ONE (20:39)
[2024-06-08] MEDS: FLUoxetine HCL 20 MG CAP PO SCH (08:18)
[2024-06-08] MEDS: ATORVASTATIN 20 MG TAB PO SCH (08:18)
[2024-06-08] MEDS: PANTOPRAZOLE 40 MG TABLET PO SCH (08:18)
--- NOTE | 2024-06-08 08:48 | P.PN ---
Subjective Progress Note Date: 06/08/24 Principal diagnosis: schizoaffective HPI: Patient presented to the hospital with concerns regarding a neck abscess however patient was reporting spiders in the abscess and endorsing suicidal thoughts. EPS evaluation revealed, "Patient was dropped off by an Unknown person. Patient is lying in bed with noted psychomotor agitation picking at lips and back of head. Noted restless and constant movement in arms and legs bilaterally. Admits to meth and cocaine use within the past day. Sates she uses everyday. Does not remember the last time she took medications for mental hea lth. States that " She came in because the spiders were getting in her head and the Doctor fixed it." Thinks that Manuel Monkeys are constantly after her. Having difficulty with her gait." patient's UDS was noted to be positive for several substances including amphetamines, methamphetamines, benzodiazepines, cannabis, cocaine. Patient seen and evaluated on the unit and was agreeable with speaking to insurance underwriter in her room. She states that she has been experiencing tactile and auditory hallucinations, stating that there are spiders all over her. Patient does not endorse her substance use and appeared to minimize these concerns, stating she does not know how her UDS was positive for several substances. She denied any withdrawal symptoms or cravings and is not agreeable with rehab at this time, appearing precontemplative. Patient states she has been nonadherent with her psychotropic medications and is currently homeless. Patient noted to be restless, moving about in bed. Patient reports suicidal ideations today however denies any homicidal ideations intent or plan. Patient denies any flight of ideas racing thoughts and increased in goal directed behavior. Patient admits to using nicotine daily however was minimizing her other substance use despite positive UDS. she denies any problems on the medicines that she had good sleep. PAST PSYCHIATRIC HISTORY: Patient has a history of schizoaffective disorder, polysubstance use. Patient denies being on any psychiatric medications. He most recently was discharged on Prozac 3 mg daily, Zyprexa 20 mg at bedtime, Requip 0.5 mg at bedtime. Patient has had several inpatient hospitalizations, including this year alone, most recent 04/2024. Patient follows with [facility] and has ACT team. Patient reports at least 5 suicide attempts.SOCIAL HISTORY: Patient is currently homeless. She is and has no children. She is on disability. She completed her GED. MENTAL STATUS EXAM: the patient did not want to get out of bed and come and talk with me in the office. She did have reasonable eye contact was alert does have constant psychomotor activity almost like she has tardive dyskinesia. She was not aggressive not tearful just uncooperative she know she was in the hospital but her thought content suggests cognitive impairment and lack of understanding. General Appearance: Patient appears to be older than stated age is somnolent but largely cooperative. Patient appears to have poor hygiene and grooming. Behavior: Patient is and there is evidence of psychomotor restlessness Speech: Patient's speech is fluent and nonpressured. Mood/Affect: Patient reports their mood is depressed, affect is congruent and constricted. Suicidality/Homicidality: Patient denies having any homicidal ideation intent or plan. Patient reports suicidal ideations Perceptions: Patient denies any visual hallucinations however she reports both auditory and tactile hallucinations Though content/process: There is evidence of delusional thoughts however thought process is linear Memory and concentration: AOX3, grossly intact for the purposes of this session. Can spell "WORLD" backwards Judgment and insight: Poor STRENGTHS/WEAKNESSES: strength is that patient reportedly has ACT team. Weakness is that patient has poor judgment, uses several substances, has poor insight and is impulsive INTELLECT: Below average IMPRESSIONS: Psychosis, unspecified, likely substance-induced History of schizoaffective disorder, bipolar type Polysubstance use disorder (crack cocaine, methamphetamine, benzodiazepines, cannabis) Nicotine dependence PLAN:increase Zyprexa to 10 mg at night -Patient is admitted under voluntary status to MHU for stabilization of psychiatric symptoms and safety. Patient has signed adult voluntary form and medication consent and is placed in patient's chart. -Medications : continue Prozac 20 mg daily for depression, Requip 0.5 mg at bedtime for RLS -Hydroxyzine and Zyprexa PRN for agitation/aggression -Patient was counselled on substance abuse and desired to cut back on use-Will offer patient subtance use rehab -Patient was informed of the risks, benefits and side effects of the medication and patient verbally consented to taking the medications. Patient signed med consent form and was placed in chart. -Internal Medicine consult to perform medical evaluation and physical. -NRT -nicotine patch -SW on board for discharge planning. Encourage patient to participate in groups to work on coping skills. Objective - Vital Signs Vital signs: Vital Signs Temp 96.6 F L 06/07/24 07:25 Pulse 78 06/07/24 07:25 Resp 14 06/07/24 07:25 BP 99/70 06/07/24 07:25 Pulse Ox 97 06/07/24 07:25 FiO2 - Labs CBC & Chem 7: 06/07/24 09:33 06/07/24 09:33 Labs: Abnormal Lab Results - Last 24 Hours (Table) 06/07/24 06/07/24 Range/Units 09:33 09:33 Hct 46.9 H (34.0-46.0) % Triglycerides 159.00 H (0.00-149.00) mg/dL
[2024-06-08] MEDS: OLANZapine 10 MG TAB PO SCH (21:32)
--- NOTE | 2024-06-09 11:06 | P.PN ---
Subjective Progress Note Date: 06/09/24 Principal diagnosis: schizoaffective subjective: The patient is doing fine then she was worried about spiders in her lip that she has to take out. He appeared to be having organic hallucinations and some. MENTAL STATUS EXAM: the patient did not want to get out of bed. She was sitting in a dark room. She had poor eye contact was alert. She does have constant psychomotor activity almost like she has tardive dyskinesia. She was not aggressive not tearful just uncooperative she knows she iss in the hospital but her thought content or lack thereof show cognitive impairment and lack of understanding. General Appearance: Patient appears to be older than stated age is somnolent but largely cooperative. Patient appears to have poor hygiene and grooming. Behavior: Patient is and there is evidence of psychomotor restlessness Speech: Patient's speech is fluent and nonpressured. Mood/Affect: Patient reports their mood is depressed, affect is congruent and constricted. Suicidality/Homicidality: Patient denies having any homicidal ideation intent or plan. Patient reports suicidal ideations Perceptions: Patient denies any visual hallucinations however she reports both auditory and tactile hallucinations Though content/process: There is evidence of delusional thoughts however thought process is linear Memory and concentration: AOX3, grossly intact for the purposes of this session. Can spell "WORLD" backwards Judgment and insight: Poor . Weakness is that patient has poor judgment, uses several substances, has poor insight and is impulsive INTELLECT: Below average IMPRESSIONS: Psychosis, unspecified, likely substance-induced History of schizoaffective disorder, bipolar type Polysubstance use disorder (crack cocaine, methamphetamine, benzodiazepines, cannabis) Nicotine dependence PLAN: Zyprexa to 10 mg at nightshe seems to be tolerating this well is still having organic hallucinations she does not seem to be lethargic -Patient is admitted under voluntary status to MHU for stabilization of psychiatric symptoms and safety. Patient has signed adult voluntary form and medication consent and is placed in patient's chart. -Medications : continue Prozac 20 mg daily for depression, Requip 0.5 mg at bedtime for RLS -Hydroxyzine and Zyprexa PRN for agitation/aggression -Patient was counselled on substance abuse and desired to cut back on use-Will offer patient subtance use rehab -Patient was informed of the risks, benefits and side effects of the medication and patient verbally consented to taking the medications. Patient signed med consent form and was placed in chart. -Internal Medicine consult to perform medical evaluation and physical. -NRT -nicotine patch -SW on board for discharge planning. Encourage patient to participate in groups to work on coping skills. Objective - Vital Signs Vital signs: Vital Signs Temp 97.4 F L 06/09/24 06:41 Pulse 80 06/09/24 06:41 Resp 16 06/09/24 06:41 BP 104/73 06/09/24 06:41 Pulse Ox 95 06/09/24 06:41 FiO2 - Labs CBC & Chem 7: 06/07/24 09:33 06/07/24 09:33
--- NOTE | 2024-06-09 16:34 | P.MDCNMH ---
History of Present Illness H&P Date: 06/09/24 Patient is a 49-year-old female with history of dyslipidemia, restless leg syndrome, urinary incontinence, GERD and schizoaffective disorder, polysubstance use disorder currently in mental health unit. [facility] [place] physicians consulted for medical management. Patient denies any chest pain, shortness of breath, abdominal pain, nausea, vomiting, urinary or bowel complaints. WBC 10.9, hemoglobin 14.6, creatinine 0.75, LDL 49.6, total cholesterol 129, urine toxicology positive for amphetamines, methamphetamines, benzos, cocaine, marijuana. Pertinent positives and negatives as discussed in HPI, a complete review of systems was performed and all other systems are negative. Patient seen and examined at bedside. Vital signs reviewed General: nontoxic, no distress, appears at stated age Derm: warm, dry Head: atraumatic, normocephalic, symmetric Eyes: EOMI, no lid lag, anicteric sclera, pupils equal round reactive to light ENT: Nose and ears atraumatic Neck: No thyromegaly, supple Mouth: no lip lesion, mucus membranes moist Cardiovascular: S1S2 reg, no murmur, no edema Lungs: clear to auscultation bilateral, no rhonchi, no rales, no wheeze, no accessory muscle use Abdominal: soft, nontender to palpation, no guarding, no appreciable organomegaly Ext: no gross muscle atrophy, muscle strength muscle strength 5 out of 5 in all 4 extremities, no contractures Neuro: CN II-XII grossly intact Psych: Alert, oriented, appropriate affect Assessment/Plan: Dyslipidemia -Continue atorvastatin 20 mg daily GERD -Continue pantoprazole 40 mg daily Restless leg syndrome -Continue ropinirole 0.5 mg nightly Polysubstance use disorder Schizoaffective disorder Acute psychosis -Rest of the care per psychiatry Thank you for allowing us to participate in the care of this pleasant patient. Do not hesitate to contact us with questions. Someone can be reached from the [facility] [place] Phys[facility] hospitalist group all hours of the day at [phone] or via [employer] Past Medical History Past Medical History: GERD/Reflux, Hyperlipidemia Additional Past Medical History / Comment(s): overactive bladder, chronic back pain, History of Any Multi-Drug Resistant Organisms: None Reported Past Surgical History: Cholecystectomy Past Anesthesia/Blood Transfusion Reactions: No Reported Reaction Smoking Status: Current every day smoker - Past Family History Father Additional Family Medical History / Comment(s): Father in his 50s from mesothelioma. Mother Family Medical History: Cancer, Diabetes Mellitus Additional Family Medical History / Comment(s): Colon Cancer Brother(s) Family Medical History: COPD Additional Family Medical History / Comment(s): Patient has 4 brothers and one has scoliosis. She does not have contact with the others. Sister(s) Additional Family Medical History / Comment(s): She has one sister with mental health issues. Daughter(s) Additional Family Medical History / Comment(s): Patient has 2 daughters and one has uterine cancer. She does not have any sons. Medications and Allergies Home Medications Medication Instructions Recorded Confirmed Type Atorvastatin [Lipitor] 20 mg PO DAILY 30 Days #30 tab 05/06/24 06/06/24 Rx FLUoxetine HCL [PROzac] 60 mg PO DAILY 30 Days #90 cap 05/06/24 06/06/24 Rx OLANZapine [ZyPREXA] 20 mg PO HS 30 Days #30 tab 05/06/24 06/06/24 Rx Pantoprazole [Protonix] 40 mg PO DAILY 30 Days #30 tab 05/06/24 06/06/24 Rx diphenhydrAMINE [Benadryl] 50 mg PO HS PRN 30 Days #30 cap 05/06/24 06/06/24 Rx oxyBUTYnin chloride [Ditropan] 5 mg PO DAILY 30 Days #30 tab 05/06/24 06/06/24 Rx rOPINIRole HCL [Requip] 0.5 mg PO HS 30 Days #30 tab 05/06/24 06/06/24 Rx Ketoconazole [Nizoral A-D] 1 applic TOPICAL DAILY 14 Days 05/26/24 06/06/24 Rx #120 ml Neomycin/Bacitracin/Polymyxinb 1 applic TOPICAL Q4H 7 Days #15 gm 05/26/24 06/06/24 Rx [Neosporin Ointment] Cephalexin [Keflex] 500 mg PO Q6HR 7 Days #28 cap 06/05/24 Rx Mupirocin 2% Oint [Bactroban 2% 1 applic TOPICAL TID #22 gm 06/05/24 Rx Oint] Sulfamethox-Tmp 800-160Mg [Bactrim 1 tab PO Q12HR 06/06/24 06/06/24 History Ds] Allergies Allergy/AdvReac Type Severity Reaction Status Date / Time No Known Allergies Allergy Verified 06/06/24 10:39 Physical Exam Vitals: Vital Signs Temp Pulse Resp BP Pulse Ox 06/09/24 06:41 97.4 F L 80 16 104/73 95 Cranial Nerve Examination - Cranial Nerves Cranial Nerve II- Optic: Intact Cranial Nerve III- Oculomotor: Intact Cranial Nerve IV- Trochlear: Intact Cranial Nerve V- Trigeminal: Intact Cranial Nerve - Abducens: Intact Cranial Nerve VII- Facial: Intact Cranial Nerve VIII- Auditory: Intact Cranial Nerve IX- Glossopharyngeal: Intact Cranial Nerve X- Vagus: Intact Cranial Nerve XI- Accessory: Intact Cranial Nerve XII- Hypoglossal: Intact Results CBC & Chem 7: 06/07/24 09:33 06/07/24 09:33
[2024-06-10] MEDS: hydrOXYzine HCL 25 MG TAB PO PRN (10:27)
--- NOTE | 2024-06-10 11:34 | P.PN ---
Progress Note - Text Progress Note Date: 06/10/24 Interval History: Patient was seen in bed and was directable and agreeable to speak with health underwriter in the room. She states not doing well, expressing suicidal thoughts today and ongoing tactile and auditory hallucinations, still experiencing spiders crawling on her. Objectively, patient does appear better in that she is less restless this encounters and has been adherent with her psychotropic medications. She states psychosocial stressors are contributing to her symptoms including being homeless and not being able to receive her check since she does not have an ID. At this time patient denies any homicidal ideations, intent or plan. Patient denies any side effects from the medications and has been compliant with meds. Mental Status Exam: General Appearance: Patient appears to be within stated age is fatigued but directable, and cooperative. Behavior: Patient is calmly laying without any agitated behavior. Speech: Patient's speech is fluent and nonpressured. Mood/Affect: Mood is "not good", affect is congruent and constricted. Suicidality/Homicidality: Patient reports suicidal ideations however denies any homicidal ideation intent or plan. Perceptions: Patient denies any visual hallucinations however reports auditory and tactile hallucinations Though content/process: Patient expressed delusional thoughts of spiders crawling over her Memory and concentration: AOX3, grossly intact for the purposes of this session Judgment and insight: Chronically poor however improving mildly Assessment Psychosis, unspecified, likely substance-induced History of schizoaffective disorder, bipolar type Polysubstance use disorder (crack cocaine, methamphetamine, benzodiazepines, ca nnabis) Nicotine dependence Plan: -Patient continues to meet criteria for inpatient psychiatric admission for symptom stabilization and safety. Patient has signed adult voluntary form and medication consent and was placed in patient's chart. -Medications: Increase Prozac to 40 mg daily tomorrow for depression, increase Zyprexa to 15 mg at bedtime for psychosis continue Requip 0.5 mg at bedtime for RLS -When necessary hydroxyzine and Zyprexa for agitation/aggression. -Labs: Triglycerides elevated however everything else wnl -NRT -nicotine patch -SW on board for discharge planning. Encouraged the patient to participate in milieu.
[2024-06-10] MEDS: OLANZapine 5 MG TAB PO SCH (21:06)
[2024-06-11] MEDS: FLUoxetine HCL 20 MG CAP PO SCH (08:16)
[2024-06-11] MEDS: MAG HYDROX/AL HYDROX/SIMETH 355 ML BOTTLE PO PRN (10:19)
[2024-06-11] MEDS: ONDANSETRON 4 MG TAB PO PRN (11:27)
--- NOTE | 2024-06-11 14:31 | P.PN ---
Progress Note - Text Interval History: Patient was seen at the bedside and was directable and agreeable to speak with continuity writer. She explained that she's been "puking and pooping" this morning. She feels the diarrhea has resolved at this point but is still feeling nauseous. She reprots her mood as "alright." She's not feeling anxious. She is anticipating her court date on 06/23/24 for legal charges. She expects to receive probation. She does endorse experiencing auditory hallucinations telling her to "kill someone" but denies homicidal ideation, intent, or plan. She also has visual hallucinations of "blood everywhere". At this time patient denies any suicidal ideations, intent, or plan. Patient denies any paranoia or delusions. Patient denies any side effects from the medications and has been compliant with meds. Mental Status Exam: General Appearance: Patient appears to be stated age is alert, directable, and cooperative. Behavior: Patient is calmly lying down without any agitated behavior. Speech: Patient's speech is fluent and non-pressured. Mood/Affect: Mood is "alright", affect is congruent and constricted. Suicidality/Homicidality: Patient denies having any suicidal or homicidal ideation, intent, or plan. Perceptions: Patient endorses visual hallucinations and auditory hallucinations Though content/process: There is no evidence of any overtly delusional thought content and thought process is linear and goal-directed. Memory and concentration: AOX3, grossly intact for the purposes of this session Judgment and insight: Questionable ASSESSMENT: Assessment Psychosis, unspecified, likely substance-induced History of schizoaffective disorder, bipolar type Polysubstance use disorder (crack cocaine, methamphetamine, benzodiazepines, cannabis) Nicotine dependence Plan: -Patient continues to meet criteria for inpatient psychiatric admission for symptom stabilization and safety. Patient has signed adult voluntary form and m edication consent and was placed in patient's chart. -Medications: - Continue Prozac 40 mg daily for depression (increased today) - Continue Zyprexa 15 mg at bedtime for psychosis (increased today) - Continue Requip 0.5 mg at bedtime for RLS -When necessary hydroxyzine and Zyprexa for agitation/aggression. -Labs: Triglycerides elevated on admission, however everything else wnl -NRT -nicotine patch -SW on board for discharge planning. Encouraged the patient to participate in milieu.
--- NOTE | 2024-06-12 14:01 | P.PN ---
Progress Note - Text Interval History: Patient was seen at the bedside and was directable and agreeable to speak with verse writer. She describes her mood as "scared" today. When asked more about this she said that she is "scared of spiders" because she has a "hole in my neck and a spider crawled in". Her GI symptoms have resolved and she has not had any other nausea or diarrhea since yesterday morning. Per review of nursing notes she slept about 6 hours last night. In regards to other symptoms she does report hearing auditory hallucinations saying "mood"; she denies any visual hallucinations at present. Does report suicidal ideation and stated "I want to ". She denied having intent or plan to act on these thoughts at this time. She also denies homicidal ideation, intent, or plan. Patient denies any paranoia or delusions. Patient denies any side effects from the medications and has been compliant with meds. Mental Status Exam: General Appearance: Patient appears to be stated age is alert, directable, and cooperative. Behavior: Patient is calmly lying down without any agitated behavior. Speech: Patient's speech is fluent and non-pressured. Mood/Affect: Mood is "scared", affect is congruent and constricted. Suicidality/Homicidality: Patient denies having homicidal ideation, intent, or plan. Patient reports suicidal ideation but denies intent or plan. Perceptions: Patient endorses visual hallucinations and auditory hallucinations Though content/process: There is some evidence of delusional thought content related to a spider crawling in her neck; thought process is linear and goal- directed. Memory and concentration: AOX3, grossly intact for the purposes of this session Judgment and insight: Impaired ASSESSMENT: Psychosis, unspecified, likely substance-induced History of schizoaffective disorder, bipolar type Polysubstance use disorder (crack cocaine, methamphetamine, benzodiazepines, cannabis) Nicotine dependence Plan: -Patient continues to meet criteria for inpatient psychiatric admission for symptom stabilization and safety. Patient has signed adult voluntary form and medication consent and was placed in patient's chart. -Medications: - Increase Prozac to 60 mg daily for depression (will begin tomorrow, 06/13/24) - Increase Zyprexa to 20 mg at bedtime for psychosis (increase tonight) - Continue Requip 0.5 mg at bedtime for RLS -When necessary hydroxyzine and Zyprexa for agitation/aggression. -Labs: Triglycerides elevated on admission, however everything else wnl -NRT -nicotine patch -SW on board for discharge planning. Encouraged the patient to participate in milieu.
[2024-06-12] MEDS: OLANZapine 10 MG TAB PO SCH (20:52)
[2024-06-13] MEDS: FLUoxetine HCL 20 MG CAP PO SCH (08:14)
--- NOTE | 2024-06-13 11:55 | P.PN ---
Progress Note - Text Interval History: Patient was seen at the bedside and was directable and agreeable to speak with director underwriter sales. When asked how she's feeling today she stated "I'm not". She continues to feel "worried about spiders" and has ongoing fear and anxiety. She has been having visual hallucinations of "half of face" and auditory hallucinations that say suicidal thoughts "make you feel better". She shared that she last went to rehab at [facility] last year and is hopeful that she will be able to get some help with housing after leaving the hospital. She is not currently interested in going to rehab after this hospitalization. She was aware of a potential housing opportunity near the local [facility] and is curious if that will be an option. In inquiring about her self-care, she has not showered or washed her face since being in the hospital. We discussed that taking the steps may help her mood and help her start to feel better. She reports ongoing suicidal ideation and stated again today "I want to ". She denies intent or plan and does feel safe here in the hospital. She denies homicidal ideation, intent, or plan. Patient denies any side effects from the medications and has been compliant with meds. Mental Status Exam: General Appearance: Patient appears to be stated age is alert, directable, and cooperative. Behavior: Patient is calmly lying down without any agitated behavior. No eye contact. Mostly covered with blankets and looks away. Speech: Patient's speech is fluent and non-pressured. Mood/Affect: Mood is irritable and anxious, affect is congruent and constricted. Suicidality/Homicidality: Patient denies having homicidal ideation, intent, or plan. Patient reports suicidal ideation but denies intent or plan. Perceptions: Patient endorses visual hallucinations and auditory hallucinations Though content/process: There is some evidence of delusional thought content related to spiders; thought process is tangential but redirectable. Memory and concentration: AOX3, grossly intact for the purposes of this session Judgment and insight: Impaired ASSESSMENT: Psychosis, unspecified, likely substance-induced History of schizoaffective disorder, bipolar type Polysubstance use disorder (crack cocaine, methamphetamine, benzodiazepines, cannabis) Nicotine dependence Plan: -Patient continues to meet criteria for inpatient psychiatric admission for symptom stabilization and safety. She continues to experience psychotic symptoms, suicidal ideation, and has not returned to her baseline level of insight/functioning. Patient has signed adult voluntary form and medication consent and was placed in patient's chart. -Medications: - Continue Prozac 60 mg daily for depression (began today, 06/13/24) - Continue Zyprexa 20 mg at bedtime for psychosis (increased on 06/12/24) - Continue Requip 0.5 mg at bedtime for RLS -When necessary hydroxyzine and Zyprexa for agitation/aggression. -Labs: Triglycerides elevated on admission, however everything else wnl -NRT -nicotine patch -SW on board for discharge planning. Encouraged the patient to participate in milieu.
[2024-06-13] MEDS: BACITRACIN OINT 1 EACH PACKET TOPICAL SCH (21:05)
--- NOTE | 2024-06-14 13:46 | P.PN ---
Progress Note - Text Interval History: Patient was seen at the bedside and was directable and agreeable to speak with copywriter. She described her mood as "I don't know yet" when asked. She is feeling "tired" and doesn't want to get out of bed. She continues to endorse suicidal ideation; she does not presently have an identified method or plan. She does have intrusive thoughts of wanting to at times. She denies auditory or visual hallucinations so far today. She did get out of bed and shower yesterday and was more active in the [facility]. She would like to go to a nursing home after discharge. She is not presently interested in rehab. She denies homicidal ideation, intent, or plan. Patient denies any side effects from the medications and has been compliant with meds. Mental Status Exam: General Appearance: Patient appears to be stated age is alert, directable, and cooperative. Behavior: Patient is calmly lying down without any agitated behavior. No eye contact. Remains covered with blankets and looks away. Speech: Patient's speech is fluent and non-pressured. Mood/Affect: Mood is alexithymic, affect is congruent and constricted. Suicidality/Homicidality: Patient denies having homicidal ideation, intent, or plan. Patient reports suicidal ideation but denies intent or plan. Perceptions: Patient endorses visual hallucinations and auditory hallucinations Though content/process: There is some evidence of delusional thought content related to spiders; thought process is tangential but redirectable. Memory and concentration: AOX3, grossly intact for the purposes of this session Judgment and insight: Impaired ASSESSMENT: Psychosis, unspecified, likely substance-induced History of schizoaffective disorder, bipolar type Polysubstance use disorder (crack cocaine, methamphetamine, benzodiazepines, cannabis) Nicotine dependence Plan: -Patient continues to meet criteria for inpatient psychiatric admission for symptom stabilization and safety. She continues to experience psychotic symptoms, suicidal ideation, and has not returned to her baseline level of insight/functioning. Patient has signed adult voluntary form and medication consent and was placed in patient's chart. -Medications: - Continue Prozac 60 mg daily for depression (increased on 06/13/24) - Continue Zyprexa 20 mg at bedtime for psychosis (increased on 06/12/24) - Continue Requip 0.5 mg at bedtime for RLS -When necessary hydroxyzine and Zyprexa for agitation/aggression. -Labs: Triglycerides elevated on admission, however everything else wnl -NRT -nicotine patch -SW on board for discharge planning. Encouraged the patient to participate in milieu.
--- NOTE | 2024-06-15 14:21 | P.PN ---
Progress Note - Text Progress Note Date: 06/15/24 Dictation was produced using [employer] dictation software. Please excuse any grammatical, word or spelling errors. Interval history: Patient was seen in the hallway and was directable and agreeable to speak with the freelance copywriter in the office for psychiatric follow-up. Pt states that she is feeling "okay" today, reported that her mood is "sherman" today, admitted to good sleep, and appetite. She reported that depression and anxiety are about the moderate side, she rated both at 7/10. She reported that she has fleeting thoughts of suicide however no intention or plan, denied any current homicidal thoughts or behaviors. Reported that lately she has been having visual hallucination of seeing blood, and bad face, she reported that she has been hearing voices since she was 10 yo, telling her that they will "take her meat off her bones," reported that she was diagnosed with schizophrenia since she was 10 yo. She states that AVH has been under control, and less intense. She states that she social with staff and peers, denied any issues of aggression or agitation. She states that she used to live in an apartment and one of her neighbor accused her of stealing $5 from him and he pressed charges, reported that she will have a court hearing on 06/23/2024, reported that she is anxious about the hearing and wanted that to be postponed since she is already in the hospital. She states that she wanted to go to an [facility] home following discharge. We talked about substance use and she does not consider rehab at this time. She states that she has been compliant with her medication, denied any current side effects, reported that she has restless leg syndrome. Mental status exam: General Appearance: Patient appears to be stated age is alert, directable, and cooperative. Behavior: Patient was calm, cooperative and forthcoming during the interview she was calmly seated without any agitated behavior. She has appropriate eye contact. Speech: Patient's speech is fluent and non-pressured. Mood/Affect: Mood is " sherman", affect is congruent and constricted. Suicidality/Homicidality: Patient denies having homicidal ideation, intent, or plan. Patient reports fleeting suicidal ideation without any intention or plan. Perceptions: Patient endorses visual hallucinations and auditory hallucinations, chronic in nature, less intense Though content/process: There is some evidence of delusional thought content related to spiders; thought process is linear, logical, improving Memory and concentration: AOX3, grossly intact for the purposes of this session Judgment and insight: Impaired Impression: Psychosis, unspecified, likely substance-induced History of schizoaffective disorder, bipolar type Polysubstance use disorder (crack cocaine, methamphetamine, benzodiazepines, cannabis) Nicotine dependence Assessment/Plan: Continue with current diagnosis. Patient continues to meet criteria for inpatient psychiatric admission for symptom stabilization and safety. Patient will be maintained on current psychotropic medication regimen. Monitor for medication compliance and for any psychotropic medication side effects. Will continue to monitor ongoing response to treatment. Encouraged participation in milieu.
--- NOTE | 2024-06-16 13:14 | P.PN ---
Progress Note - Text Progress Note Date: 06/16/24 Dictation was produced using [employer] dictation software. Please excuse any grammatical, word or spelling errors. Interval history: Patient was seen in the hallway and was directable and agreeable to speak with the comic writer in the office for psychiatric follow-up. The pt states that she is feeling "good" today, reported that she slept well last night, and reported that she still get restless leg symptoms. Reported depression and anxiety to be at the low side. She denied any current suicidal or homicidal thoughts or behaviors. She denied any current auditory or visual hallucination. She admitted to good appetite. Reported that she gets along well with everyone in the unit, denied any aggression or agitation. Reported that she does not know where she will go from here, reported that she is not sure if her sister will take her. Psychoeducation was provided into substance use, patient reported that she was in rehab few months ago, stayed for few days and could not take it since there was many people there. She reported that she does not mind going back to rehab. She reported that she was told by the ACT team that she is not qualified to go to [facility] home. Reported that she wanted to speak with the marriage and family social worker regarding her court date on June 23, 2024. Mental status exam: General Appearance: Patient appears to be stated age is alert, directable, and cooperative. Behavior: Patient was calm, cooperative and forthcoming during the interview she was calmly seated without any agitated behavior. She has appropriate eye contact. Speech: Patient's speech is fluent and non-pressured. Mood/Affect: Mood is "good", affect is congruent and constricted. Suicidality/Homicidality: Patient denies having homicidal ideation, intent, or plan. Patient reports fleeting suicidal ideation without any intention or plan. Perceptions: Patient endorses visual hallucinations and auditory hallucinations, chronic in nature, less intense Though content/process: There is some evidence of delusional thought content related to spiders; thought process is linear, logical, improving Memory and concentration: AOX3, grossly intact for the purposes of this session Judgment and insight: improving Impression: Psychosis, unspecified, likely substance-induced History of schizoaffective disorder, bipolar type Polysubstance use disorder (crack cocaine, methamphetamine, benzodiazepines, cannabis) Nicotine dependence Assessment/Plan: Continue with current diagnosis. Patient continues to meet tone kwan for inpatient psychiatric admission for symptom stabilization and safety. Patient will be maintained on current psychotropic medication regimen. Monitor for medication compliance and for any psychotropic medication side effects. Will continue to monitor ongoing response to treatment. Encouraged participation in milieu.
--- NOTE | 2024-06-17 14:41 | P.PN ---
Progress Note - Text Progress Note Date: 06/17/24 Interval history: Patient was seen in the hallway and was directable and agreeable to speak with the contract technical writer in the office for psychiatric follow-up. The pt states that she is feeling "still depressed" today, has not been showering, spends most of the day sleeping or isolating to her room. She reported that she slept well last night. She requests an increase to her Requip because she feels she still is feeling restless legs when she lays down to go to sleep. We reviewed her meds and she started the Requip about one week ago so we will increase the dose to 1 mg QHS tonight. We reviewed her Zyprexa dose of 20 mg QHS which is at FDA max, and discussed a trial of increasing the dose above FDA max by adding an additional 5 mg daily dose in the morning and she agreed. She denies any current suicidal or homicidal thoughts or behaviors. She admits to thoughts of non-suicidal self- harm when "the bugs come around", specifically the spiders. She claims auditory or visual hallucinations everyday since she was 10 years old, however she does not appear to be objectively responding to internal stimuli. She admitted to good appetite. She declines residential rehab, states she plans to get her own place and needs a homeless [facility] for the time being. Reported that she wanted to speak with the social services designee regarding her court date on June 24, 2024 for "larcen[employer] of a building". Mental status exam: General Appearance: Patient appears disheveled, states she has not been showering, to be stated age is alert, directable, and cooperative. Behavior: Patient was calm, cooperative and forthcoming during the interview she was calmly seated without any agitated behavior. She has appropriate eye contact. Speech: Patient's speech is fluent and non-pressured. Mood/Affect: Mood is "good", affect is congruent and constricted. Suicidality/Homicidality: Patient denies having homicidal ideation, intent, or plan. Patient reports fleeting suicidal ideation without any intention or plan. Perceptions: Patient endorses visual hallucinations and auditory hallucinations, chronic in nature, less intense Though content/process: There is some evidence of delusional thought content related to spiders; thought process is linear, logical, improving Memory and concentration: AOX3, grossly intact for the purposes of this session Judgment and insight: improving Impression: Psychosis, unspecified, likely substance-induced History of schizoaffective disorder, bipolar type Polysubstance use disorder (crack cocaine, methamphetamine, benzodiazepines, cannabis) Nicotine dependence Assessment/Plan: Continue with current diagnosis. Patient continues to meet criteria for inpatient psychiatric admission for symptom stabilization and safety. Increase Requip from 0.5 mg QHS to 1 mg QHS for RLS. Increase Zyprexa from 5 20 mg QHS to 5 mg daily plus 20 mg QHS for psychosis. Monitor for side effects. We discussed this dose is above the FDA max of 20 mg daily dose. Monitor for medication compliance and for any psychotropic medication side effects. Will continue to monitor ongoing response to treatment. Encouraged participation in milieu.
[2024-06-18 07:23] VITALS: BP 92/56; PULSE 62; RESP 16; TEMP 97.3
[2024-06-18] MEDS: OLANZapine 5 MG TAB PO SCH (09:43)
--- NOTE | 2024-06-18 15:09 | P.DS ---
Providers Date of admission: 06/06/24 14:13 Expected date of discharge: 06/18/24 Attending physician: Renata Alberto MD Consults: 06/06/24 05:31 Consult Physician Stat Consulting Provider: Renata Alberto Consult Reason/Comments: psych evaluation Do you want consulting provider notified?: Already Contacted 06/06/24 14:50 Consult Physician Stat Consulting Provider: Carlita Calderon Consult Reason/Comments: H & P Do you want consulting provider notified?: Already Contacted Primary care physician: Stated None - Discharge Diagnosis(es) (1) Psychosis Current Visit: Yes Status: Acute Priority: High (2) Polysubstance abuse Current Visit: Yes Status: Acute Priority: High (3) Nicotine dependence Current Visit: Yes Status: Chronic Priority: Low Hospital Course: Admission HPI: Admission note was completed by marketing writer "Patient presented to the hospital with concerns regarding a neck abscess however patient was reporting spiders in the abscess and endorsing suicidal thoughts. EPS evaluation revealed, "Patient was dropped off by an Unknown person. Patient is lying in bed with noted psychomotor agitation picking at lips and back of head. Noted restless and constant movement in arms and legs bilaterally. Admits to meth and cocaine use within the past day. Sates she uses everyday. Does not remember the last time she took medications for mental health. States that " She came in because the spiders were getting in her head and the Doctor fixed it." Thinks carisa Manuel Monkeys are constantly after her. Having difficulty with her gait." patient's UDS was noted to be positive for several substances including amphetamines, methamphetamines, benzodiazepines, cannabis, cocaine. Patient seen and evaluated on the unit and was agreeable with speaking to marketing writer in her room. She states that she has been experiencing tactile and auditory hallucinations, stating that there are spiders all over her. Patient does not endorse her substance use and appeared to minimize these concerns, stating she does not know how her UDS was positive for several substances. She denied any withdrawal symptoms or cravings and is not agreeable with rehab at this time, appearing precontemplative. Patient states she has been nonadherent with her psychotropic medications and is currently homeless. Patient noted to be restless, moving about in bed. Patient reports suicidal ideations today however denies any homicidal ideations intent or plan. Patient denies any flight of ideas racing thoughts and increased in goal directed behavior. Patient admits to using nicotine daily however was minimizing her other substance use despite positive UDS." Hospital course: Upon admission to the unit patient was directable and agreeable to commence treatment and signed adult voluntary form.. Patient notably at the beginning of her stay was isolative to her room, often seen asleep which was likely related to withdrawal however towards the end of her stay she was more social, following unit protocol. Patient was compliant with the medications and denied any side effects throughout hospital course. Patient was started on Zyprexa and this was increased to 20 mg at bedtime +5 mg daily for psychosis, Requip increased to 1 mg at bedtime for RLS, Prozac increased to 60 mg daily for depression. Patient spoke of her stressors and engaged in therapy both group and individual. Patient was also seen by medical team for history and physical exam. Throughout the course of the hospitalization patient gradually improved with regards to mood, anxiety, sleep and returned back to their baseline level of functioning. On the day of discharge patient denied any suicidal or homicidal ideations intent or plan denied any auditory or visual hallucinations. The patient denied any access to guns or weapons. Patient denied any paranoia and did not endorse any delusions. Patient does have a significant history of substance abuse and was counseled on abstaining from all substances including alcohol and marijuana. Patient was offered however declined inpatient substance-abuse rehab. Patient was also counseled on the medications and need for regular compliance and was encouraged to follow-up with their outpatient appointment for mental health and also for primary care. Prior to discharge a family meeting will be arranged by clinical social work therapist to answer any questions and ensure safety upon discharge incuding making sure that guns/weapons are either removed from the home or locked away. She is to be discharged back home with sister with [facility] and ACT team follow-up. Mental status exam: General Appearance: Patient appears to be older than stated age is alert, pleasant, and cooperative. Patient is in no acute distress and has improved hygiene and grooming Behavior: Patient is calmly seated without any agitated behavior. Speech: Patient's speech is fluent and nonpressured. Mood/Affect: Patient reports their mood is "better", affect is congruent and euthymic. Suicidality/Homicidality: Patient denies having any suicidal or homicidal ideation intent or plan. Perceptions: Patient denies any auditory or visual hallucinations. Though content/process: There is no evidence of any delusional thought content and thought process is linear and goal-directed. More future oriented Memory and concentration: AOX3, grossly intact for the purposes of this session. Can spell "WORLD" backwards correctly. Judgment and insight: Chronically poor, however has improved with guarded pro gnosis Impression: Psychosis, unspecified, likely substance-induced Polysubstance abuse (crack cocaine, methamphetamine, benzodiazepines, cannabis_ Nicotine dependence Plan: -Continue with discharge today as patient has improved and stabilized psychiatrically and is not currently an imminent threat to themself and/or others. Patient will remain at chronically elevated risk for harm to self and/ or others due to their impulsivity and substance abuse. -Continue medications: Zyprexa 20 mg at bedtime and 5 mg daily, Requip 1 mg at bedtime, Prozac 60 mg daily -Patient was counseled on the need for medication compliance and appropriate follow-up at mental health and also primary care for medical issues. Patient verbalized understanding and agreed. -Social work to help coordinate patients discharge today. also to ensure safe home environment that guns/weapons are either removed from the home or locked away. Social work also to arrange for patients follow up appointments with [facility] for psychiatric care along with follow up with primary care provider. -Patient counseled on abstaining from recreational drugs and marijuana and alcohol. Was informed/educated on the adverse effects on their physical and mental health. Patient verbally agreed and understood. Patient was offered substance abuse treatment however declined at this time. -Patient was instructed to return to the hospital or seek immediate medical care if their psychiatric or medical symptoms do worsen or reoccur. Abnormal Labs 06/05/24 06/07/24 06/07/24 20:09 09:33 09:33 Hct 46.9 H Triglycerides 159.00 H Ur Amphetamines Screen Detected H U Methamphetamines Scrn Detected H U Benzodiazepines Scrn Detected H Urine Cocaine Screen Detected H U Marijuana (THC) Screen Detected H Vital Signs Temp 97.3 F L 06/18/24 06:49 Pulse 62 06/18/24 06:49 Resp 16 06/18/24 06:49 BP 92/56 06/18/24 06:49 Pulse Ox 95 06/18/24 06:49 FiO2 Allergies Allergy/AdvReac Type Severity Reaction Status Date / Time No Known Allergies Allergy Verified 06/06/24 10:39 Patient Condition at Discharge: Stable Plan - Discharge Summary Discharge Rx Participant: No New Discharge Prescriptions: New Mupirocin 2% Oint [Bactroban 2% Oint] 1 applic TOPICAL TID #22 gm OLANZapine [ZyPREXA] 5 mg PO DAILY 30 Days #30 tab OLANZapine [ZyPREXA] 20 mg PO HS 30 Days #60 tab Cephalexin [Keflex] 500 mg PO Q6HR 7 Days #28 cap diphenhydrAMINE [Benadryl] 25 mg PO HS PRN 30 Days #30 cap PRN Reason: Insomnia FLUoxetine HCL [PROzac] 60 mg PO DAILY 30 Days #90 cap rOPINIRole HCL [Requip] 1 mg PO HS 30 Days #30 tab Continue FLUoxetine HCL [PROzac] 60 mg PO DAILY 30 Days #90 cap OLANZapine [ZyPREXA] 20 mg PO HS 30 Days #30 tab Atorvastatin [Lipitor] 20 mg PO DAILY 30 Days #30 tab Pantoprazole [Protonix] 40 mg PO DAILY 30 Days #30 tab Discontinued rOPINIRole HCL [Requip] 0.5 mg PO HS 30 Days #30 tab Sulfamethox-Tmp 800-160Mg [Bactrim Ds] 1 tab PO Q12HR diphenhydrAMINE [Benadryl] 50 mg PO HS PRN 30 Days #30 cap PRN Reason: Insomnia oxyBUTYnin chloride [Ditropan] 5 mg PO DAILY 30 Days #30 tab Neomycin/Bacitracin/Polymyxinb [Neosporin Ointment] 1 applic TOPICAL Q4H 7 Days #15 gm Ketoconazole [Nizoral A-D] 1 applic TOPICAL DAILY 14 Days #120 ml Discharge Medication List FLUoxetine HCL [PROzac] 60 mg PO DAILY 30 Days #90 cap 05/06/24 [Rx] OLANZapine [ZyPREXA] 20 mg PO HS 30 Days #30 tab 05/06/24 [Rx] Cephalexin [Keflex] 500 mg PO Q6HR 7 Days #28 cap 06/05/24 [Rx] Mupirocin 2% Oint [Bactroban 2% Oint] 1 applic TOPICAL TID #22 gm 06/05/24 [Rx] Atorvastatin [Lipitor] 20 mg PO DAILY 30 Days #30 tab 06/18/24 [Rx] FLUoxetine HCL [PROzac] 60 mg PO DAILY 30 Days #90 cap 06/18/24 [Rx] OLANZapine [ZyPREXA] 5 mg PO DAILY 30 Days #30 tab 06/18/24 [Rx] OLANZapine [ZyPREXA] 20 mg PO HS 30 Days #60 tab 06/18/24 [Rx] Pantoprazole [Protonix] 40 mg PO DAILY 30 Days #30 tab 06/18/24 [Rx] diphenhydrAMINE [Benadryl] 25 mg PO HS PRN 30 Days #30 cap 06/18/24 [Rx] rOPINIRole HCL [Requip] 1 mg PO HS 30 Days #30 tab 06/18/24 [Rx] Follow up Appointment(s)/Referral(s): Center,Internal [Other] - 1 Week [facility] [Outside] - 07/02/24 3:00 pm (07/02/2024 3:00PM - 3:30PM MILL[facility]APA ) Patient Instructions/Handouts: How to Stop Smoking (DC), Depression (DC), Schi zoaffective Disorder (DC), Psychotic Disorder (DC) Activity/Diet/Wound Care/Special Instructions: [facility] Discharge Info Avoid the use of street drugs and alcohol. Take all medications as prescribed. When you are in need of refills on your medications, please contact your outpatient medical provider and/or outpatient psychiatrist. Please go to your scheduled outpatient appointments for aftercare treatment. If symptoms return or become worse, call the crisis line at or and/or visit the nearest emergency room for assistance. National Suicide and Crisis Lifeline - call or text 988 Discharge Disposition: HOME SELF-CARE
[2024-06-18 16:22] VITALS: BMI 34.3
== END 2024-06-18 16:20 | disposition home or self-care (01) | DRG 897 ==
LOC: EC 19:05 → 3MHU 06-06 14:13
PROVIDERS: ADMIT Psychiatry & Neurology Psychiatry; ATTEND Psychiatry & Neurology Psychiatry
DX: F15.159 Other stimulant abuse with stimulant-induced psychotic disorder, unspecified (principal); L02.11 Cutaneous abscess of neck; R45.851 Suicidal ideations; Z59.00 Homelessness unspecified; F12.10 Cannabis abuse, uncomplicated; F14.10 Cocaine abuse, uncomplicated; F25.0 Schizoaffective disorder, bipolar type; F17.200 Nicotine dependence, unspecified, uncomplicated; R45.1 Restlessness and agitation; R32 Unspecified urinary incontinence; F41.9 Anxiety disorder, unspecified; G25.81 Restless legs syndrome; K21.9 Gastro-esophageal reflux disease without esophagitis; E78.5 Hyperlipidemia, unspecified; N32.81 Overactive bladder; G89.29 Other chronic pain; M54.9 Dorsalgia, unspecified; Z11.52 Encounter for screening for COVID-19; Z28.21 Immunization not carried out because of patient refusal; Z56.0 Unemployment, unspecified; Z79.899 Other long term (current) drug therapy; Z91.51 Personal history of suicidal behavior; Z65.3 Problems related to other legal circumstances
CPT/HCPCS: 10060; 36415; 51798; 71046; 80053; 80061; 80306; 80320; 81003; 83036; 84443; 85025; 87636; 99285

== ENCOUNTER 2024-08-20 08:05 | Emergency (ER) | payer MEDICARE, OTHER ==
[2024-08-20 08:23] VITALS: TEMP 98.3
--- NOTE | 2024-08-20 08:57 | ED ---
General Adult HPI - General Chief complaint: Psychiatric Symptoms Stated complaint: Mental health eval Time Seen by Provider: 08/20/24 08:25 Source: patient, RN notes reviewed, old records reviewed Mode of arrival: ambulatory Limitations: no limitations - History of Present Illness Initial comments: This is a 49-year-old female who presents to the emergency department stating that she has had spiders in her hair in the coming out her mouth. Patient also states she has been doing methamphetamine. Patient also states she does not want to live anymore like to kill her self. Patient has no plan. Patient Nuys homicidal ideations. Patient denies any physical complaint today. Patient is a poor historian. - Related Data Home Medications Medication Instructions Recorded Confirmed OLANZapine [ZyPREXA] 5 mg PO HS 08/20/24 08/20/24 OLANZapine [ZyPREXA] 20 mg PO HS 08/20/24 08/20/24 Previous Rx's Medication Instructions Recorded FLUoxetine HCL [PROzac] 60 mg PO DAILY 30 Days #90 cap 06/18/24 diphenhydrAMINE [Benadryl] 25 mg PO HS PRN 30 Days #30 cap 06/18/24 rOPINIRole HCL [Requip] 1 mg PO HS 30 Days #30 tab 06/18/24 Allergies Allergy/AdvReac Type Severity Reaction Status Date / Time No Known Allergies Allergy Verified 08/20/24 10:11 Review of Systems ROS Statement: Those systems with pertinent positive or pertinent negative responses have been documented in the HPI. ROS Other: All systems not noted in ROS Statement are negative. Past Medical History Past Medical History: GERD/Reflux, Hyperlipidemia Additional Past Medical History / Comment(s): overactive bladder, chronic back pain, History of Any Multi-Drug Resistant Organisms: None Reported Past Surgical History: Cholecystectomy Past Anesthesia/Blood Transfusion Reactions: No Reported Reaction Past Psychological History: Bipolar, Schizophrenia Smoking Status: Current every day smoker Past Alcohol Use History: None Reported Past Drug Use History: Methamphetamine - Past Family History Father Additional Family Medical History / Comment(s): Father in his 50s from mesothelioma. Mother Family Medical History: Cancer, Diabetes Mellitus Additional Family Medical History / Comment(s): Colon Cancer Brother(s) Family Medical History: COPD Additional Family Medical History / Comment(s): Patient has 4 brothers and one has scoliosis. She does not have contact with the others. Sister(s) Additional Family Medical History / Comment(s): She has one sister with mental health issues. Daughter(s) Additional Family Medical History / Comment(s): Patient has 2 daughters and one has uterine cancer. She does not have any sons. General Exam - General Exam Comments Initial Comments: GENERAL: Patient is well-developed and well-nourished. Patient is nontoxic and well- hydrated and is in no acute distress. ENT: Neck is soft and supple. No significant lymphadenopathy is noted. Oropharynx is clear. Moist mucous membranes. Neck has full range of motion without eliciting any pain. EYES: The sclera were anicteric and conjunctiva were pink and moist. Extraocular movements were intact and pupils were equal round and reactive to light. Eyelids were unremarkable. PULMONARY: Unlabored respirations. Good breath sounds bilaterally. No audible rales rhonc hi or wheezing was noted. CARDIOVASCULAR: There is a regular rate and rhythm without any murmurs gallops or rubs. ABDOMEN: Soft and nontender with normal bowel sounds. SKIN: Skin is clear with no lesions or rashes and otherwise unremarkable. NEUROLOGIC: Patient is alert and oriented x3. Cranial nerves II through XII are grossly intact. Motor and sensory are also intact. Normal speech, volume and content. Symmetrical smile. MUSCULOSKELETAL: Normal extremities with adequate strength and full range of motion. LYMPHATICS: No significant lymphadenopathy is noted PSYCHIATRIC: Patient states she is got spiders in her head and they are coming out her mouth. Limitations: no limitations Course Vital Signs 08/20/24 08:17 Temperature 98.3 F Pulse Rate 84 Respiratory 18 Rate Blood Pressure 126/76 O2 Sat by Pulse 94 L Oximetry Medical Decision Making - Medical Decision Making Was pt. sent in by a medical professional or institution (, PA, SERIALS LIBRARIAN, urgent care, hospital, or fpc...) When possible be specific @ -No Did you speak to anyone other than the patient for history (EMS, parent, family, police, friend...)? What history was obtained from this source @ -No Did you review nursing and triage notes (agree or disagree)? Why? @ -I reviewed and agree with nursing and triage notes Were old charts reviewed (outside hosp., previous admission, EMS record, old EKG, old radiological studies, urgent care reports/EKG's, fpc records)? Report findings @ -No old charts were reviewed Differential Diagnosis? @ -Differential Mental Health Depression, anxiety, bipolar, psychosis, schizophrenia, borderline personality, situational depression, adjustment disorder, behavioral disorder, brain tumor, malingering, substance abuse, encephalopathy, medication reaction, dementia, hypothyroidism, degenerative neurologic disorder, lupus.... This is not meant to be all-inclusive list EKG interpreted by me (3pts min.). @ -As above X-rays interpreted by me (1pt min.). @ -None done CT interpreted by me (1pt min.). @ -None done U/S interpreted by me (1pt. min.). @ -None done What testing was considered but not performed or refused? (CT, X-rays, U/S, labs)? Why? @ -None What meds were considered but not given or refused? Why? @ -None Did you discuss the management of the patient with other professionals (professionals i.e. , PA, SERIALS LIBRARIAN, lab, RT, psych nurse, psych social worker, director enterprise data architecture, teacher, bsa/aml compliance officer, medical case manager)? Give summary @ -EPS evaluated the patient spoke with the psychiatrist and they determined that the patient can be discharged home. Was smoking cessation discussed for >3mins.? @ -No Was critical care preformed (if so, how long)? @ -No Were there social determinants of health that impacted care today? How? (Homelessness, low income, unemployed, alcoholism, drug addiction, transportation, low edu. Level, literacy, decrease access to med. care, halfway, rehab)? @ -No Was there de-escalation of care discussed even if they declined (Discuss DNR or withdrawal of care, Hospice)? DNR status @ -No What co-morbidities impacted this encounter? (DM, HTN, Smoking, COPD, CAD, Cancer, CVA, ARF, Chemo, Hep., AIDS, mental health diagnosis, sleep apnea, morbid obesity)? @ -None Was patient admitted / discharged? Hospital course, meds given and route, prescriptions, significant lab abnormalities, going to OR and other pertinent info. @ -After EPS spoke with the patient I went in and spoke with the patient she continues thinking there was some bugs in her hair however she was not suicidal or homicidal she did admit that she regularly does methamphetamine Undiagnosed new problem with uncertain prognosis? @ -No Drug Therapy requiring intensive monitoring for toxicity (Heparin, Nitro, Insulin, Cardizem)? @ -No Were any procedures done? @ -No Diagnosis/symptom? @ -Methamphetamine abuse Acute, or Chronic, or Acute on Chronic? @ -Acute Uncomplicated (without systemic symptoms) or Complicated (systemic symptoms)? @ -Complicated Side effects of treatment? @ -No Exacerbation, Progression, or Severe Exacerbation? @ -No Poses a threat to life or bodily function? How? (Chest pain, [place], [place], pneumonia, PE, COPD, DKA, ARF, appy, cholecystitis, CVA, Diverticulitis, Homicidal, Suicidal, threat to staff... and all critical care pts) @ -No Disposition Clinical Impression: Methamphetamine abuse Disposition: HOME SELF-CARE Condition: Good Instructions (If sedation given, give patient instructions): Methamphetamine Abuse (ED) Additional Instructions: Patient should stop doing illegal drugs Is patient prescribed a controlled substance at d/c from ED?: No Referrals: None,Stated [Primary Care Provider] - 1-2 days Time of Disposition: 11:05
[2024-08-20 12:06] VITALS: BP 133/85; PULSE 76; RESP 20
== END 2024-08-20 12:14 | disposition home or self-care (01) ==
LOC: EC 08:05
DX: F15.10 Other stimulant abuse, uncomplicated (principal); F17.200 Nicotine dependence, unspecified, uncomplicated
CPT/HCPCS: 82075; 99284

== ENCOUNTER 2025-01-04 14:23 | Emergency (ER) | payer MEDICARE, OTHER ==
--- NOTE | 2025-01-04 16:17 | ED ---
Psych HPI - General Chief Complaint: Psychiatric Symptoms Stated Complaint: Psych Source: patient, RN notes reviewed, old records reviewed Mode of arrival: ambulatory Limitations: no limitations - History of Present Illness Initial Comments: This is a 49-year-old female who presents to the ER today. This patient presents to us today for evaluation of psychiatric illness known history of psychiatric illness does admit to suicide and depression today. Increasing symptoms no significant new life stressor, patient denies drugs or alcohol today. MD Complaint: suicidal ideation, feels depressed -: unknown Associated Psychiatric Symptoms: depression, suicidal ideation History of same: Yes Quality: constant Improves With: none Context: not taking psychiatric medications Associated Symptoms: denies other symptoms Treatments Prior to Arrival: placed on mental health hold If Self Harm: admits thoughts of self harm - Related Data Home Medications Medication Instructions Recorded Confirmed OLANZapine [ZyPREXA] 20 mg PO BID 08/20/24 01/04/25 FLUoxetine HCL 80 mg PO DAILY 01/04/25 01/04/25 diphenhydrAMINE [Benadryl] 50 mg PO HS PRN 01/04/25 01/04/25 rOPINIRole HCL [Requip] 2 mg PO HS 01/04/25 01/04/25 Allergies Allergy/AdvReac Type Severity Reaction Status Date / Time No Known Allergies Allergy Verified 01/04/25 15:56 Review of Systems ROS Statement: Those systems with pertinent positive or pertinent negative responses have been documented in the HPI. ROS Other: All systems not noted in ROS Statement are negative. Past Medical History Past Medical History: GERD/Reflux, Hyperlipidemia Additional Past Medical History / Comment(s): overactive bladder, chronic back pain, History of Any Multi-Drug Resistant Organisms: None Reported Past Surgical History: Cholecystectomy Past Anesthesia/Blood Transfusion Reactions: No Reported Reaction Past Psychological History: Bipolar, Schizophrenia Smoking Status: Current every day smoker Past Alcohol Use History: None Reported Past Drug Use History: Methamphetamine - Past Family History Father Additional Family Medical History / Comment(s): Father in his 50s from mesothelioma. Mother Family Medical History: Cancer, Diabetes Mellitus Additional Family Medical History / Comment(s): Colon Cancer Brother(s) Family Medical History: COPD Additional Family Medical History / Comment(s): Patient has 4 brothers and one has scoliosis. She does not have contact with the others. Sister(s) Additional Family Medical History / Comment(s): She has one sister with mental health issues. Daughter(s) Additional Family Medical History / Comment(s): Patient has 2 daughters and one has uterine cancer. She does not have any sons. General Exam Limitations: no limitations General appearance: alert, in no apparent distress Head exam: Present: atraumatic, normocephalic, normal inspection Eye exam: Present: normal appearance, PERRL, EOMI. Absent: scleral icterus, conjunctival injection, periorbital swelling ENT exam: Present: normal exam, mucous membranes moist Neck exam: Present: normal inspection. Absent: tenderness, meningismus, lymphadenopathy Respiratory exam: Present: normal lung sounds bilaterally. Absent: respiratory distress, wheezes, rales, rhonchi, stridor Cardiovascular Exam: Present: regular rate, normal rhythm, normal heart sounds. Absent: systolic murmur, diastolic murmur, rubs, gallop, clicks GI/Abdominal exam: Present: soft, normal bowel sounds. Absent: distended, tenderness, guarding, rebound, rigid Extremities exam: Present: normal inspection, full ROM, normal capillary refill. Absent: tenderness, pedal edema, joint swelling, calf tenderness Back exam: Present: normal inspection Neurological exam: Present: alert, oriented X3, CN II-XII intact Psychiatric exam: Present: normal affect, normal mood Skin exam: Present: warm, dry, intact, normal color. Absent: rash Course Vital Signs 01/04/25 01/04/25 01/05/25 14:42 18:39 03:17 Temperature 98.3 F 98.1 F Pulse Rate 76 70 Respiratory 20 16 16 Rate Blood Pressure 118/64 97/62 O2 Sat by Pulse 99 93 L Oximetry 01/05/25 06:14 Temperature Pulse Rate 64 Respiratory 95 H Rate Blood Pressure 119/76 O2 Sat by Pulse 94 L Oximetry - Reevaluation(s) Reevaluation #1: 01/04/25 17:36 Medical records reviewed Reevaluation #2: 01/04/25 17:37 Medically cleared for psychiatric evaluation Reevaluation #3: Was pt. sent in by a medical professional or institution (, PA, HOOD MAKER, urgent care, hospital, or usp...) When possible be specific @ -no Did you speak to anyone other than the patient for history (EMS, parent, family, police, friend...)? What history was obtained from this source @ -no Did you review nursing and triage notes (agree or disagree)? Why? @ -agree Are old charts reviewed (outside hosp., previous admission, EMS record, old EKG, old radiological studies, urgent care reports/EKG's, usp records)? Report findings @ -yes Differential Diagnosis (chest pain, altered mental status, abdominal pain women, abdominal pain men, vaginal bleeding, weakness, fever, dyspnea, syncope, headache, dizziness, GI bleed, back pain, seizure, CVA, palpatations, mental health, musculoskeletal)? @ -prior EKG interpreted by me (3pts min.). @ -yes X-rays interpreted by me (1pt min.). @ -yes negative for acute disease CT interpreted by me (1pt min.). @ -no U/S interpreted by me (1pt. min.). @ -no What testing was considered but not performed or refused? (CT, X-rays, U/S, labs)? Why? @ -none What meds were considered but not given or refused? Why? @ -none Did you discuss the management of the patient with other professionals (professionals i.e. , PA, HOOD MAKER, lab, RT, psych nurse, social media developer, chief gauger, teacher, forest fire management officer, field nurse case manager)? Give summary @ -no Was smoking cessation discussed for >3mins.? @ -no Was critical care preformed (if so, how long)? @ -no Were there social determinants of health that impacted care today? How? (Homelessness, low income, unemployed, alcoholism, drug addiction, transportation, low edu. Level, literacy, decrease access to med. care, fdc, rehab)? @ -none Was there de-escalation of care discussed even if they declined (Discuss DNR or withdrawal of care, Hospice)? DNR status @ -no What co-morbidities impacted this encounter? (DM, HTN, Smoking, COPD, CAD, Cancer, CVA, ARF, Chemo, Hep., AIDS, mental health diagnosis, sleep apnea, morbid obesity)? @ -none Was patient admitted / discharged? Hospital course, mention meds given and route, prescriptions, significant lab abnormalities, going to OR and other pertinent info. @ - Undiagnosed new problem with uncertain prognosis? @ -no Drug Therapy requiring intensive monitoring for toxicity (Heparin, Nitro, Insulin, Cardizem)? @ -no Were any procedures done? @ -no Diagnosis/symptom? @ - Acute, or Chronic, or Acute on Chronic? @ -Acute Uncomplicated (without systemic symptoms) or Complicated (systemic symptoms)? @ -Complicated Side effects of treatment? @ -no Exacerbation, Progression, or Severe Exacerbation? @ -exacerbation Poses a threat to life or bodily function? How? (Chest pain, USA, [place], pneumonia, PE, COPD, DKA, ARF, appy, cholecystitis, CVA, Diverticulitis, Homicidal, Suicidal, threat to staff... and all critical care pts) @ -yes Reevaluation #4: Differential Mental Health Depression, anxiety, bipolar, psychosis, schizophrenia, borderline personality, situational depression, adjustment disorder, behavioral disorder, brain tumor, malingering, substance abuse, encephalopathy, medication reaction, dementia, hypothyroidism, degenerative neurologic disorder, lupus.... This is not meant to be all-inclusive list Disposition Clinical Impression: Psychosis Disposition: HOME SELF-CARE Condition: Fair Instructions (If sedation given, give patient instructions): Brief Psychotic Disorder (ED) Is patient prescribed a controlled substance at d/c from ED?: No Referrals: None,Stated [Primary Care Provider] - 1-2 days
[2025-01-04 18:40] VITALS: TEMP 98.1
[2025-01-05 18:29] VITALS: BP 111/66; PULSE 85; RESP 18
== END 2025-01-05 18:51 | disposition home or self-care (01) ==
LOC: EC 14:23
DX: F29 Unspecified psychosis not due to a substance or known physiological condition (principal); F17.200 Nicotine dependence, unspecified, uncomplicated
CPT/HCPCS: 82075; 99285

== ENCOUNTER 2025-01-07 21:47 | Emergency (ER) | payer MEDICARE, OTHER ==
[2025-01-07 21:58] VITALS: BP 122/90; PULSE 94; RESP 18; TEMP 99.2
--- NOTE | 2025-01-07 22:01 | ED ---
General Adult HPI - General Stated complaint: Abscess in L Arm Pit Time Seen by Provider: 01/07/25 21:52 Source: patient, RN notes reviewed, old records reviewed - History of Present Illness Initial comments: 49-year-old female with pain and swelling in the left armpit. Patient states this has been there for 1 week. Patient denies fever or systemic symptoms. She states she is not a diabetic. She has not had any drainage that she noted. - Related Data Home Medications Medication Instructions Recorded Confirmed OLANZapine [ZyPREXA] 20 mg PO BID 08/20/24 01/04/25 FLUoxetine HCL 80 mg PO DAILY 01/04/25 01/04/25 diphenhydrAMINE [Benadryl] 50 mg PO HS PRN 01/04/25 01/04/25 rOPINIRole HCL [Requip] 2 mg PO HS 01/04/25 01/04/25 Previous Rx's Medication Instructions Recorded Cephalexin [Keflex] 500 mg PO Q6HR 10 Days #40 cap 01/07/25 Sulfamethox-Tmp 800-160Mg [Bactrim 1 tab PO Q12HR 10 Days #20 tab 01/07/25 DS 800-160 mg] Allergies Allergy/AdvReac Type Severity Reaction Status Date / Time No Known Allergies Allergy Verified 01/07/25 21:58 Review of Systems ROS Statement: Those systems with pertinent positive or pertinent negative responses have been documented in the HPI. ROS Other: All systems not noted in ROS Statement are negative. Past Medical History Past Medical History: GERD/Reflux, Hyperlipidemia Additional Past Medical History / Comment(s): overactive bladder, chronic back pain, History of Any Multi-Drug Resistant Organisms: None Reported Past Surgical History: Cholecystectomy Past Anesthesia/Blood Transfusion Reactions: No Reported Reaction Past Psychological History: Bipolar, Schizophrenia Smoking Status: Current every day smoker Past Alcohol Use History: None Reported Past Drug Use History: Methamphetamine - Past Family History Father Additional Family Medical History / Comment(s): Father in his 50s from mesothelioma. Mother Family Medical History: Cancer, Diabetes Mellitus Additional Family Medical History / Comment(s): Colon Cancer Brother(s) Family Medical History: COPD Additional Family Medical History / Comment(s): Patient has 4 brothers and one has scoliosis. She does not have contact with the others. Sister(s) Additional Family Medical History / Comment(s): She has one sister with mental health issues. Daughter(s) Additional Family Medical History / Comment(s): Patient has 2 daughters and one has uterine cancer. She does not have any sons. General Exam General appearance: alert, in no apparent distress Head exam: Present: atraumatic, normocephalic Eye exam: Present: normal appearance, PERRL ENT exam: Present: normal exam Neck exam: Present: normal inspection. Absent: tenderness, meningismus Respiratory exam: Present: normal lung sounds bilaterally. Absent: respiratory distress, wheezes Cardiovascular Exam: Present: regular rate, normal rhythm GI/Abdominal exam: Present: soft. Absent: distended, tenderness Extremities exam: Present: other (2 cm round indurated and erythematous abscess in the left axilla. There is no central fluctuance.) Course Vital Signs 01/07/25 21:55 Temperature 99.2 F Pulse Rate 94 Respiratory 18 Rate Blood Pressure 122/90 O2 Sat by Pulse 97 Oximetry Medical Decision Making - Medical Decision Making Was pt. sent in by a medical professional or institution (TARA Alexander, COMMUNITY LIVING INSTRUCTOR, urgent care, hospital, or residential...) When possible be specific @ -No Did you speak to anyone other than the patient for history (EMS, parent, family, police, friend...)? What history was obtained from this source @ -No Did you review nursing and triage notes (agree or disagree)? Why? @ -I reviewed and agree with nursing and triage notes Were old charts reviewed (outside hosp., previous admission, EMS record, old EKG, old radiological studies, urgent care reports/EKG's, residential records)? Report findings @ -No old charts were reviewed Differential Diagnosis hidradenitis suppurativa, abscess, cellulitis @ -Not applicable EKG interpreted by me (3pts min.). @ -As above X-rays interpreted by me (1pt min.). @ -None done CT interpreted by me (1pt min.). @ -None done U/S interpreted by me (1pt. min.). @ -None done What testing was considered but not performed or refused? (CT, X-rays, U/S, labs)? Why? @ -None What meds were considered but not given or refused? Why? @ -None Did you discuss the management of the patient with other professionals (professionals i.e. , PA, COMMUNITY LIVING INSTRUCTOR, lab, RT, psych nurse, health care social worker, centrifugal operator, teacher, tactical deception plans officer, case management associate)? Give summary @ -No Was smoking cessation discussed for >3mins.? @ -No Was critical care preformed (if so, how long)? @ -No Were there social determinants of health that impacted care today? How? (Homelessness, low income, unemployed, alcoholism, drug addiction, transportation, low edu. Level, literacy, decrease access to med. care, skilled nursing, rehab)? @ -No Was there de-escalation of care discussed even if they declined (Discuss DNR or withdrawal of care, Hospice)? DNR status @ -No What co-morbidities impacted this encounter? (DM, HTN, Smoking, COPD, CAD, Cancer, CVA, ARF, Chemo, Hep., AIDS, mental health diagnosis, sleep apnea, morbid obesity)? @ -None Was patient admitted / discharged? Hospital course, mention meds given and route, prescriptions, significant lab abnormalities, going to OR and other pertinent info. @49-year-old female with early abscess in the left axilla. There is no central fluctuance, this is not drainable currently. Patient is instructed on warm compresses and prescribed antibiotics. She is instructed to follow with the primary care provider in 2 to 3 days or return to the emergency department for drainage. Undiagnosed new problem with uncertain prognosis? @ -No Drug Therapy requiring intensive monitoring for toxicity (Heparin, Nitro, Insulin, Cardizem)? @ -No Were any procedures done? @ -No Diagnosis/symptom? @ -[Abscess Acute, or Chronic, or Acute on Chronic? @ -Acute Uncomplicated (without systemic symptoms) or Complicated (systemic symptoms)? @ -Default Side effects of treatment? @ -No Exacerbation, Progression, or Severe Exacerbation? @ -No Poses a threat to life or bodily function? How? (Chest pain, USA, [place], pneumonia, PE, COPD, DKA, ARF, appy, cholecystitis, CVA, Diverticulitis, Homicidal, Suicidal, threat to staff... and all critical care pts) @ -No Disposition Clinical Impression: Abscess, Cellulitis Disposition: HOME SELF-CARE Condition: Fair Instructions (If sedation given, give patient instructions): Cellulitis (ED), Abscess (ED) Additional Instructions: Right care provider or return to the emergency department In 2 to 3 days as this abscess will likely require drainage Prescriptions: Sulfamethox-Tmp 800-160Mg [Bactrim DS 800-160 mg] 1 tab PO Q12HR 10 Days #20 tab Cephalexin [Keflex] 500 mg PO Q6HR 10 Days #40 cap Is patient prescribed a controlled substance at d/c from ED?: No Referrals: None,Stated [Primary Care Provider] - 1-2 days Time of Disposition: 21:58
== END 2025-01-07 22:30 | disposition home or self-care (01) ==
LOC: EC 21:47
DX: L02.414 Cutaneous abscess of left upper limb (principal); F17.200 Nicotine dependence, unspecified, uncomplicated
CPT/HCPCS: 99282

== ENCOUNTER 2025-01-08 01:34 | Emergency (ER) | payer MEDICARE, OTHER ==
[2025-01-08 01:38] VITALS: BP 115/74; PULSE 88; RESP 18; TEMP 98.6
[2025-01-08] MEDS: KETOROLAC 15 MG/ML 1 ML VIAL IM STA (02:04)
--- NOTE | 2025-01-08 02:15 | ED ---
General Adult HPI - General Chief complaint: Skin/Abscess/Foreign Body Stated complaint: Abscess on armpit Time Seen by Provider: 01/08/25 01:51 Source: patient, RN notes reviewed, old records reviewed Mode of arrival: ambulatory - History of Present Illness Initial comments: 49-year-old female presenting for reevaluation of abscess to the left arm. Patient was seen approximately 2 hours prior. She states she does not have any pain medication at home. She is requesting pain medication. - Related Data Home Medications Medication Instructions Recorded Confirmed OLANZapine [ZyPREXA] 20 mg PO BID 08/20/24 01/04/25 FLUoxetine HCL 80 mg PO DAILY 01/04/25 01/04/25 diphenhydrAMINE [Benadryl] 50 mg PO HS PRN 01/04/25 01/04/25 rOPINIRole HCL [Requip] 2 mg PO HS 01/04/25 01/04/25 Previous Rx's Medication Instructions Recorded Cephalexin [Keflex] 500 mg PO Q6HR 10 Days #40 cap 01/07/25 Sulfamethox-Tmp 800-160Mg [Bactrim 1 tab PO Q12HR 10 Days #20 tab 01/07/25 DS 800-160 mg] Ibuprofen [Motrin] 600 mg PO Q8HR PRN #24 tab 01/08/25 Allergies Allergy/AdvReac Type Severity Reaction Status Date / Time No Known Allergies Allergy Verified 01/07/25 21:58 Review of Systems ROS Statement: Those systems with pertinent positive or pertinent negative responses have been documented in the HPI. ROS Other: All systems not noted in ROS Statement are negative. Past Medical History Past Medical History: GERD/Reflux, Hyperlipidemia Additional Past Medical History / Comment(s): overactive bladder, chronic back pain, History of Any Multi-Drug Resistant Organisms: None Reported Past Surgical History: Cholecystectomy Past Anesthesia/Blood Transfusion Reactions: No Reported Reaction Past Psychological History: Bipolar, Schizophrenia Smoking Status: Current every day smoker Past Alcohol Use History: None Reported Past Drug Use History: Methamphetamine - Past Family History Father Additional Family Medical History / Comment(s): Father in his 50s from mesothelioma. Mother Family Medical History: Cancer, Diabetes Mellitus Additional Family Medical History / Comment(s): Colon Cancer Brother(s) Family Medical History: COPD Additional Family Medical History / Comment(s): Patient has 4 brothers and one has scoliosis. She does not have contact with the others. Sister(s) Additional Family Medical History / Comment(s): She has one sister with mental health issues. Daughter(s) Additional Family Medical History / Comment(s): Patient has 2 daughters and one has uterine cancer. She does not have any sons. General Exam General appearance: alert, in no apparent distress Head exam: Present: atraumatic, normocephalic Eye exam: Present: normal appearance, PERRL ENT exam: Present: normal exam Neck exam: Present: normal inspection. Absent: tenderness, meningismus Respiratory exam: Present: normal lung sounds bilaterally. Absent: respiratory distress, wheezes Cardiovascular Exam: Present: regular rate, normal rhythm GI/Abdominal exam: Present: soft. Absent: distended, tenderness, guarding Extremities exam: Present: other (Abscess to the left axilla, nonfluctuant, indurated.) Course Vital Signs 01/08/25 01:36 Temperature 98.6 F Pulse Rate 88 Respiratory 18 Rate Blood Pressure 115/74 O2 Sat by Pulse 97 Oximetry Medical Decision Making - Medical Decision Making Was pt. sent in by a medical professional or institution (TARA Alexander, MOTOR SETTER, urgent care, hospital, or alf...) When possible be specific @ -No Did you speak to anyone other than the patient for history (EMS, parent, family, police, friend...)? What history was obtained from this source @ -No Did you review nursing and triage notes (agree or disagree)? Why? @ -I reviewed and agree with nursing and triage notes Were old charts reviewed (outside hosp., previous admission, EMS record, old EKG, old radiological studies, urgent care reports/EKG's, alf records)? Report findings @ -No old charts were reviewed Differential Diagnosis abscess, hidradenitis suppurativa, cellulitis EKG interpreted by me (3pts min.). @ -As above X-rays interpreted by me (1pt min.). @ -None done CT interpreted by me (1pt min.). @ -None done U/S interpreted by me (1pt. min.). @ -None done What testing was considered but not performed or refused? (CT, X-rays, U/S, labs)? Why? @ -None What meds were considered but not given or refused? Why? @ -None Did you discuss the management of the patient with other professionals (professionals i.e. , PA, MOTOR SETTER, lab, RT, psych nurse, mental health social worker, jacquard lace weaver, teacher, life science technical officer, onsite case manager)? Give summary @ -No Was smoking cessation discussed for >3mins.? @ -No Was critical care preformed (if so, how long)? @ -No Were there social determinants of health that impacted care today? How? (Homelessness, low income, unemployed, alcoholism, drug addiction, transportation, low edu. Level, literacy, decrease access to med. care, skilled nursing, rehab)? @ -No Was there de-escalation of care discussed even if they declined (Discuss DNR or withdrawal of care, Hospice)? DNR status @ -No What co-morbidities impacted this encounter? (DM, HTN, Smoking, COPD, CAD, Cancer, CVA, ARF, Chemo, Hep., AIDS, mental health diagnosis, sleep apnea, morbid obesity)? @ -None Was patient admitted / discharged? Hospital course, mention meds given and route, prescriptions, significant lab abnormalities, going to OR and other pertinent info. @Patient given Motrin in the emergency department and prescribed Motrin for pain control. Abscess will likely require drainage but is not ready for drainage at this time. Undiagnosed new problem with uncertain prognosis? @ -No Drug Therapy requiring intensive monitoring for toxicity (Heparin, Nitro, Insulin, Cardizem)? @ -No Were any procedures done? @ -No Diagnosis/symptom? @ -Abscess Acute, or Chronic, or Acute on Chronic? @Acute Uncomplicated (without systemic symptoms) or Complicated (systemic symptoms)? @ -Default Side effects of treatment? @ -No Exacerbation, Progression, or Severe Exacerbation? @ -No Poses a threat to life or bodily function? How? (Chest pain, [place], [place], pneumonia, PE, COPD, DKA, ARF, appy, cholecystitis, CVA, Diverticulitis, Homicidal, Suicidal, threat to staff... and all critical care pts) @ -No Disposition Clinical Impression: Abscess Disposition: HOME SELF-CARE Condition: Fair Instructions (If sedation given, give patient instructions): Abscess (ED) Prescriptions: Ibuprofen [Motrin] 600 mg PO Q8HR PRN #24 tab PRN Reason: Pain Is patient prescribed a controlled substance at d/c from ED?: No Referrals: None,Stated [Primary Care Provider] - 1-2 days Kira Yadav MD [STAFF PHYSICIAN] - 1-2 days Time of Disposition: 02:17
[2025-01-08] MEDS: IBUPROFEN 600 MG TAB PO STA (02:20)
== END 2025-01-08 02:26 | disposition home or self-care (01) ==
LOC: EC 01:34
DX: L02.414 Cutaneous abscess of left upper limb (principal); F17.200 Nicotine dependence, unspecified, uncomplicated
CPT/HCPCS: 99282; 96372; J1885